=== PATIENT | female | born 1985 | race Caucasian/White ===

== ENCOUNTER 2022-05-25 12:51 | Observation (INO) ==
[2022-05-25] MEDS ORDERED: SODIUM CHLORIDE 0.9% 1000ML 1,000 ML IV ONE (13:18)
[2022-05-25] MEDS ORDERED: dexAMETHasone**PF** 10 MG/ML VIAL IV ONE (13:24)
[2022-05-25] MEDS ORDERED: ACETAMINOPHEN 1,000 MG/100 ML VIAL IV STA (13:24)
[2022-05-25] MEDS ORDERED: diphenhydrAMINE 50 MG/ML VIAL IV STA (13:24)
[2022-05-25] MEDS ORDERED: PROCHLORPERAZINE 1 ML IV ONE (13:24)
[2022-05-25 13:25] LABS: Basophils # (auto) 0.04 K/uL (0-0.2); Basophils % (auto) 0.4 %; Eosinophils # (auto) 0.09 K/uL (0-0.50); Hematocrit (blood only) 46.3 % (34.1-44.9); Hemoglobin 15.4 g/dl (12.0-16.0); Immature Granulocytes # (auto) 0.03 K/uL (0.00-0.02); Immature Granulocytes % (auto) 0.3 %; Lymphocytes # (auto) 2.15 K/uL (1.2-3.4); Lymphocytes % (auto) 24.2 %; Mean Corpuscular Hemoglobin 30.1 pg (25.0-34.0); Mean Corpuscular Hgb Conc 33.3 g/dL (32.0-36.0); Mean Corpuscular Volume 90.4 fL (80.0-100.0); Mean Platelet Volume 9.3 fL (9.4-12.3); Monocytes # (auto) 0.47 K/uL (0.24-0.82); Monocytes % (auto) 5.3 %; Neutrophils # (auto) 6.11 K/uL (1.4-6.5); Neutrophils % (auto) 68.8 %; Platelet Count 282 K/uL (130-400); RDW Coefficient of Variation 12.5 % (11.5-14.5); RDW Standard Deviation 41.6 fL (36.4-46.3); Red Blood Count 5.12 M/uL (3.93-5.22); White Blood Count 8.89 K/ul (4.8-10.8)
[2022-05-25 13:51] LABS: Albumin Globulin Ratio 1.7 (0.9-2); BUN Creatinine Ratio 17.9 (10-20); Bilirubin,Total 0.5 mg/dl (0.2-1.0); Creatinine Clr Calc Pharmacy 113.2 ml/min; Est GFR (African American) 114.2 ml/min; Est GFR (Non-African American) 98.5 ml/min; Globulin 2.9 gm/dl (2.5-4.0); Magnesium 2.1 mg/dl (1.7-2.4); Phosphorus 1.7 mg/dl (2.5-4.9); Potassium 3.5 mmol/L (3.5-5.1); Total Protein 7.9 gm/dl (6.0-8.3)
[2022-05-25 13:59] LABS: Troponin I High Sensitivity 4.1 pg/ml (0-14)
--- NOTE | 2022-05-25 14:07 | XRay Report ---
XR chest 1V portable CLINICAL HISTORY: Chest Pain TECHNIQUE: Single frontal radiograph of the chest was obtained. Comparison: Comparison is made to CT abdomen pelvis 07/10/2015 FINDINGS: No lines and tubes are seen. The cardiomediastinal silhouette is normal. The lungs are clear. No evid ence of pleural effusion or pneumothorax. IMPRESSION: No acute chest disease. ACT 112: Negative or not required by law. Electronically signed by: Boris Latham M.D. 05/25/2022 2:06 PM
[2022-05-25 14:19] LABS: Pregnancy Test, Serum Negative (Negative)
[2022-05-25] MEDS ORDERED: OPTIRAY 300 500mL IV ONE (14:19)
--- NOTE | 2022-05-25 14:32 | CT Scan Report ---
CT head/brain wo con CLINICAL HISTORY: 36 years-old Female with posterior LAIRD, dizzy, b/l face numb, left face weak. Acute headache with dizziness TECHNIQUE: Multiple axial CT images of the head were obtained without contrast. A dose lowering tech nique was utilized adhering to the principles of ALARA. CT DOSE: 1059.87 mGy.cm COMPARISON: CTA head and neck of same day. FINDINGS: No acute intracranial hemorrhage, midline shift, intracranial mass, hydrocephalus, territorial ischem ia or abnormal extra-axial collection. The calvarium is intact. The paranasal sinuses, mastoid air cells, and middle ear cavities are clear . IMPRESSION: No acute intracranial abnormality. ACT 112: Negative or not required by law. The above report was generated using voice recognition software. It may contain grammatical, syntax o r spelling errors. Electronically signed by: Niles Ayala M.D. 05/25/2022 2:30 PM
--- NOTE | 2022-05-25 14:43 | CT Scan Report ---
CT ANGIOGRAM OF THE BRAIN; CT ANGIOGRAM OF THE NECK CLINICAL HISTORY: Headache and dizziness. Facial numbness. COMPARISON STUDY: Unenhanced CT of the brain performed concurrently on 05/25/2022. TECHNIQUE: Following the IV administration of 113 of Optiray 300, CT angiogram of the head and neck w as performed from the aortic arch to the vertex. Images are reviewed in the axial, sagittal, and umesh nal planes. 3-D MIPS images are created and assessed. IV contrast was administered without complicati on. All measurements were calculated based on NASCET criteria. A dose lowering technique was utilize d adhering to the principles of ALARA. FINDINGS: Brain parenchyma: The brain parenchyma is normal in appearance. There is no evidence of hemorrhage, m ass effect, or acute territorial ischemia noting angiographic phase technique. There is no evidence o f enhancing mass lesion on the angiogram phase images. The ventricles, sulci, and cisterns are normal in configuration. Velásquez-white matter differentiation is preserved. No extra-axial fluid collection is seen. Thoracic aorta: Visualized portions of the thoracic aorta are normal in caliber. The aortic arch demo nstrates standard 3-vessel anatomy. Right carotid arterial system: The right common carotid artery is widely patent, as is the right inte rnal and external carotid arteries. Left carotid arterial system: The left common carotid artery is widely patent, as are the left internal controls manager al and external carotid arteries. Vertebral arteries: The vertebral arteries are widely patent bilaterally noting left-sided dominance. Subclavian arteries: Widely patent bilaterally. Intracranial vasculature: The internal carotid arteries are patent at the skull base, as are the ante rior and middle cerebral arteries bilaterally. The basilar artery is diminutive. There is origi n of both posterior cerebral arteries. The vertebrobasilar system and posterior cerebral arteries are widely patent. The left vertebral artery is dominant. There is no aneurysm, high-grade stenosis, or focal vessel cut off seen throughout the intracranial circulation. Jugular veins: Patent bilaterally. Dural sinuses: Patent. Lung apices: Partially visualized upper lobe lung parenchyma appears clear. Soft tissues: The visualized pharyngeal soft tissues are normal in appearance noting angiographic pha se technique. The oropharyngeal airway appears widely patent. The salivary and thyroid glands are nor mal in appearance. No cervical lymphadenopathy is seen. Skeletal structures: The calvarium appears intact. The cervical spine is within normal limits. Orbits: The bony orbits are intact. Orbital contents are normal as visualized. Sinuses and mastoids: The paranasal sinuses are clear. The mastoid air cells are well pneumatized. IMPRESSION: 1. There is no evidence of hemorrhage, mass effect, or acute territorial ischemia noting angiographic phase technique. 2. Unremarkable CT angiogram of the brain. 3. Unremarkable CT angiogram of the neck. ACT 112: Negative or not required by law. Electronically signed by: Jose Lara M.D. 05/25/2022 2:40 PM
[2022-05-25 14:52] LABS: Lyme Ab IgG w/WB Rflx Negative (Negative); Lyme Ab IgM w/WB Rflx Negative (Negative)
[2022-05-25] MEDS ORDERED: POT PHOSPHATE MONOBASIC W/ SOD TAB PO STA (14:54)
--- NOTE | 2022-05-25 15:48 | History & Physical Report ---
Date of Service May 25, 2022 Assessment & Plan (1) Neurological symptoms: (2) Dizziness: (3) Hypophosphatemia: Plan This is a 36 y old F who has a significant PMH of primary hyperparathyroidism s/p parathyroidectomy in 2020, hx of pancreatitis, hx of migraine, hx of b/l occipital neuralgia, small fiber neuropathy who presents to ED 2/2 diaphoresis and dizziness that started prior to arrival. Neurological sx Dizziness L facial numbness/tingling/periodic facial droop admit to tele consult neuro obtain MRI brain echocardiogram pt/ot/st a1c, lipid panel, bmp, cbc in a.m. sx have mostly resolved - ? tia vs complex migraine, also of concern is pt prior hx of hypercalcemia, also Ca is 10.0 today she does follow with [facility] and was dx with b/l occipital neuralgia Hypophosphatemia replace give 2 oral K phos q2h x 3 repeat phos in a.m. Reported Tachycardia pt reports sensation of tachycardia has been worked up by [facility] Had 2 op Zio monitors, all which were normal and her sx correlated with NSR she was offered metoprolol to try to aide with sx, but pt opted to not start for now Hx of migraine hx of b/l occipital neuralgia Small fiber neuropathy continue baclofen, mag DVT ppx: encourage ambulation Dispo: med tele under obs, likely d/c tomorrow FULL CODE PCP: Miguel Heard Pt was seen and examined in collaboration with Dr. Shea, please see addendum History of Present Illness Chief Complaint: diaphoresis/dizziness prior to arrival. Primary Care Provider: Naveen Heard, This is a 36 y old F who has a significant PMH of primary hyperparathyroidism s/p parathyroidectomy in 2020, hx of pancreatitis, hx of migraine, hx of b/l occipital neuralgia, small fiber neuropathy who presents to ED 2/2 diaphoresis and dizziness that started prior to arrival. A little after 11 a.m. 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 She also had L sided facial numbness/tingling/tightness, "felt slow and confused." Both of her legs felt heavy. She did not notice any sx in her b/l arms. She proceeded to sit down for about an hour. A nurse checked her vitals and bsg was all normal. She didn't feel herself. Her mother picked her up from work and stated she almost was acting as if she was drunk, but obviously has not had anything. She also states she wasn't herself and felt possibly her L side of face was drooping. She didn't notice any slurred speech but more slowed speech. She denies any recent fever, chills, sweats, sore throat, uri sx, cough, chest pain, sob, n/v/d, abd pain, change in bowel or bladder habits. She states she has hx of tachycardia episode. She has been worked up by cardiology with zio patch and everything was normal. She was prescribed metoprolol to take if she wanted to start, but never started. She has never had anything happen like this before. Mother feels like her sx have resolved in regards to the facial droop. Of significance patient recently did establish with headache specialist through telemedicine from [facility]. She does have prior diagnosis of bilateral occipital neuralgia and small fiber neuropathy. Per patient her neurologist thought maybe she was having an idiopathic csf leak and was planning on getting a test done to investigate this; however machine was broke and got cancelled. She is now scheduled for this in July. Allergies Allergy/AdvReac Type Severity Reaction Status Date / Time metoclopramide [From Reglan] AdvReac Unknown MUSCLE Verified 05/25/22 16:01 SPASMS/TWITCHES Home Medications Medication Instructions Recorded Confirmed Type fluticasone propionate 50 2 spray intranasal DAILY PRN 04/01/21 05/25/22 History mcg/actuation nasal Congestion spray,suspension (Allergy Relief (fluticasone)) baclofen 10 mg tablet 10 mg PO BID 06/28/21 05/25/22 History Lactobacillus acidophilus 1.5 mg 1.5 mg PO DAILY 05/25/22 05/25/22 History (250 million cell) capsule (Probiotic Acidophilus) magnesium oxide 400 mg PO HS 05/25/22 05/25/22 History multivitamin 1 tab PO DAILY 05/25/22 05/25/22 History Past Med/Surg History Medical History Acute pancreatitis Elevated blood pressure complicating in third trimester, antepartum (10/26/14) GERD (gastroesophageal reflux disease) History of COVID-19 DX'D 06/2020 AT [id number] FOR 1 DAY, ACHINESS, LOSS TASTE AND SMELL-RECOVERED AT HOME-ALL SYMPTOMS RESOLVED EXCEPT STILL CAN'T SMELL Hypercalcemia Hypertension affecting (10/30/14) Migraine HX Surgical History History of cholecystectomy History of esophagogastroduodenoscopy (EGD) History of parathyroidectomy History of tooth extraction WISDOM TEETH [place] teeth extracted Family History Mother Hypothyroidism Breast cancer Father Hypertension Brother Hypertension Grandmother (Maternal) Hypothyroidism Family history of diabetes mellitus Aunt Hypothyroidism Social History (Updated 05/25/22 @ 15:44 by Simran Singh PA-C) Smoking Status: Never smoker Second Hand Exposure: No; Hx Alcohol Use: Yes Alcohol type: other Alcohol Intake Frequency Comment: very rare Hx Substance Use: Yes Prescribed Medications: Marijuana Prescribed Medications Comment: medical marijuana for LAIRD Preferred Language: Romanian Communication Ability: Effective Mannequin Mold Maker Required: No Beliefs That Will Affect Care: None Current Living Situation: Spouse and Family Current Living Situation Comment: [facility] 2 KIDS current occupational status: employed 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 Feels Safe at Home: Yes Assistive Devices: Contacts and Glasses Review of Systems Review of Systems: All systems reviewed & are unremarkable except as noted in HPI & below Physical Exam Physical Exam: Please refer to Dr. Shea addendum for physical exam findings. Results & Data Results & Data ([facility]) Vital Signs (Past 12 Hours) Vital Signs Pulse Pulse Resp BP BP Pulse Ox O2 Del Method 05/25/22 15:09 85 19 133/78 96 05/25/22 13:23 99 Room Air 05/25/22 13:23 84 18 143/81 H 99 Room Air 05/25/22 13:23 Room Air 05/25/22 12:54 93 H 19 151/88 H 99 Room Air Diagnostic Findings Chest X-Ray 05/25/22 13:05 XR chest 1V portable CLINICAL HISTORY: Chest Pain TECHNIQUE: Single frontal radiograph of the chest was obtained. Comparison: Comparison is made to CT abdomen pelvis 07/10/2015 FINDINGS: No lines and tubes are seen. The cardiomediastinal silhouette is normal. The lungs are clear. No evidence of pleural effusion or pneumothorax. IMPRESSION: No acute chest disease. ACT 112: Negative or not required by law. Electronically signed by: Boris Latham M.D. 05/25/2022 2:[address] 05/25/22 13:17 CT head/brain wo con CLINICAL HISTORY: 36 years-old Female with posterior LAIRD, dizzy, b/l face numb, left face weak. Acute headache with dizziness TECHNIQUE: Multiple axial CT images of the head were obtained without contrast. A dose lowering technique was utilized adhering to the principles of ALARA. CT DOSE: 1059.87 mGy.cm COMPARISON: CTA head and neck of same day. FINDINGS: No acute intracranial hemorrhage, midline shift, intracranial mass, hydrocephalus, territorial ischemia or abnormal extra-axial collection. The calvarium is intact. The paranasal sinuses, mastoid air cells, and middle e ar cavities are clear. IMPRESSION: No acute intracranial abnormality. ACT 112: Negative or not required by law. The above report was generated using voice recognition software. It may contain grammatical, syntax or spelling errors. Electronically signed by: Niles Ayala M.D. 05/25/2022 2:30 PM Head CTA 05/25/22 13:17 CT ANGIOGRAM OF THE BRAIN; CT ANGIOGRAM OF THE NECK CLINICAL HISTORY: Headache and dizziness. Facial numbness. COMPARISON STUDY: Unenhanced CT of the brain performed concurrently on 05/25/2022. TECHNIQUE: Following the IV administration of 113 of Optiray 300, CT angiogram of the head and neck was performed from the aortic arch to the vertex. Images are reviewed in the axial, sagittal, and coronal planes. 3-D MIPS images are created and assessed. IV contrast was administered without complication. All measurements were calculated based on NASCET criteria. A dose lowering technique was utilized adhering to the principles of ALARA. FINDINGS: Brain parenchyma: The brain parenchyma is normal in appearance. There is no evidence of hemorrhage, mass effect, or acute territorial ischemia noting angiographic phase technique. There is no evidence of enhancing mass lesion on the angiogram phase images. The ventricles, sulci, and cisterns are normal in configuration. Velásquez-white matter differentiation is preserved. No extra-axial fluid collection is seen. Thoracic aorta: Visualized portions of the thoracic aorta are normal in caliber. The aortic arch demonstrates standard 3-vessel anatomy. Right carotid arterial system: The right common carotid artery is widely patent, as is the right internal and external carotid arteries. Left carotid arterial system: The left common carotid artery is widely patent, as are the left internal and external carotid arteries. Vertebral arteries: The vertebral arteries are widely patent bilaterally noting left-sided dominance. Subclavian arteries: Widely patent bilaterally. Intracranial vasculature: The internal carotid arteries are patent at the skull base, as are the anterior and middle cerebral arteries bilaterally. The basilar artery is diminutive. There is origin of both posterior cerebral arteries. The vertebrobasilar system and posterior cerebral arteries are widely patent. The left vertebral artery is dominant. There is no aneurysm, high-grade stenosis, or focal vessel cut off seen throughout the intracranial circulation. Jugular veins: Patent bilaterally. Dural sinuses: Patent. Lung apices: Partially visualized upper lobe lung parenchyma appears clear. Soft tissues: The visualized pharyngeal soft tissues are normal in appearance noting angiographic phase technique. The oropharyngeal airway appears widely patent. The salivary and thyroid glands are normal in appearance. No cervical lymphadenopathy is seen. Skeletal structures: The calvarium appears intact. The cervical spine is within normal limits. Orbits: The bony orbits are intact. Orbital contents are normal as visualized. Sinuses and mastoids: The paranasal sinuses are clear. The mastoid air cells are well pneumatized. IMPRESSION: 1. There is no evidence of hemorrhage, mass effect, or acute territorial ischemia noting angiographic phase technique. 2. Unremarkable CT angiogram of the brain. 3. Unremarkable CT angiogram of the neck. ACT 112: Negative or not required by law. Electronically signed by: oJse Lara M.D. 05/25/2022 2:40 PM Neck CTA 05/25/22 13:17 CT ANGIOGRAM OF THE BRAIN; CT ANGIOGRAM OF THE NECK CLINICAL HISTORY: Headache and dizziness. Facial numbness. COMPARISON STUDY: Unenhanced CT of the brain performed concurrently on 05/25/2022. TECHNIQUE: Following the IV administration of 113 of Optiray 300, CT angiogram of the head and neck was performed from the aortic arch to the vertex. Images are reviewed in the axial, sagittal, and coronal planes. 3-D MIPS images are created and assessed. IV contrast was administered without complication. All measurements were calculated based on NASCET criteria. A dose lowering technique was utilized adhering to the principles of ALARA. FINDINGS: Brain parenchyma: The brain parenchyma is normal in appearance. There is no evidence of hemorrhage, mass effect, or acute territorial ischemia noting angiographic phase technique. There is no evidence of enhancing mass lesion on the angiogram phase images. The ventricles, sulci, and cisterns are normal in configuration. Velásquez-white matter differentiation is preserved. No extra-axial fl uid collection is seen. Thoracic aorta: Visualized portions of the thoracic aorta are normal in caliber. The aortic arch demonstrates standard 3-vessel anatomy. Right carotid arterial system: The right common carotid artery is widely patent, as is the right internal and external carotid arteries. Left carotid arterial system: The left common carotid artery is widely patent, as are the left internal and external carotid arteries. Vertebral arteries: The vertebral arteries are widely patent bilaterally noting left-sided dominance. Subclavian arteries: Widely patent bilaterally. Intracranial vasculature: The internal carotid arteries are patent at the skull base, as are the anterior and middle cerebral arteries bilaterally. The basilar artery is diminutive. There is origin of both posterior cerebral arteries. The vertebrobasilar system and posterior cerebral arteries are widely patent. The left vertebral artery is dominant. There is no aneurysm, high-grade stenosis, or focal vessel cut off seen throughout the intracranial circulation. Jugular veins: Patent bilaterally. Dural sinuses: Patent. Lung apices: Partially visualized upper lobe lung parenchyma appears clear. Soft tissues: The visualized pharyngeal soft tissues are normal in appearance noting angiographic phase technique. The oropharyngeal airway appears widely patent. The salivary and thyroid glands are normal in appearance. No cervical lymphadenopathy is seen. Skeletal structures: The calvarium appears intact. The cervical spine is within normal limits. Orbits: The bony orbits are intact. Orbital contents are normal as visualized. Sinuses and mastoids: The paranasal sinuses are clear. The mastoid air cells are well pneumatized. IMPRESSION: 1. There is no evidence of hemorrhage, mass effect, or acute territorial ischemia noting angiographic phase technique. 2. Unremarkable CT angiogram of the brain. 3. Unremarkable CT angiogram of the neck. ACT 112: Negative or not required by law. Electronically signed by: Jose Lara M.D. 05/25/2022 2:40 PM Medications Administered Medication List Discontinued Medications Dexamethasone Sodium Phosphate (DexamethasonePf 10 Mg/Ml Vial) 10 mg IV NOW ONE Stop: 05/25/22 13:25 Last Admin: 05/25/22 13:37 Dose: 10 mg Documented By: ONEAL Diphenhydramine HCl (Diphenhydramine 50 Mg/Ml Vial) 25 mg IV NOW STA Stop: 05/25/22 13:25 Last Admin: 05/25/22 13:35 Dose: 25 mg Documented By: ONEAL Sodium Chloride (Nss 1000ml) 1,000 mls @ 999 mls/hr IV .Q1H1M ONE Stop: 05/25/22 14:18 Last Infusion: 05/25/22 14:58 Dose: 0 mls/hr Documented By: Admin: 05/25/22 13:33 Dose: 999 mls/hr Documented By: ONEAL Prochlorperazine (Compazine) 1 mls @ 1 mls/min IV ONE ONE Stop: 05/25/22 13:25 Last Admin: 05/25/22 13:41 Dose: 1 mls/min Documented By: ONEAL Acetaminophen (Ofirmev) 1,000 mg in 100 mls @ 400 mls/hr IV NOW STA Stop: 05/25/22 13:38 Last Infusion: 05/25/22 14:58 Dose: 0 mls/hr Documented By: Admin: 05/25/22 13:37 Dose: 400 mls/hr Documented By: ONEAL Ioversol (Optiray 300 500ml) 113 ml IV ONCE ONE Stop: 05/25/22 14:20 Last Admin: 05/25/22 14:19 Dose: 113 ml Documented By: CHRISTINE Potassium Phosphate (Pot Phosphate Monobasic W/ Sod Tab) 2 tab PO NOW STA Stop: 05/25/22 14:55 Last Admin: 05/25/22 15:10 Dose: 2 tab Documented By: SIMA ECG Rate (beats per minute): 84 Rhythm: normal sinus Additional Comments: t wave inversion lead III COVID-19 Results Results COVID-19 Adm Lab Results: RBC 5.12 M/uL (3.93-5.22) 05/25/22 WBC 8.89 K/ul (4.8-10.8) 05/25/22 Hgb 15.4 g/dl (12.0-16.0) 05/25/22 Hct 46.3 % (34.1-44.9) H 05/25/22 Plt Count 282 K/uL (130-400) 05/25/22 Neutrophils (%) (Auto) 68.8 % 05/25/22 Lymphocytes (%) (Auto) 24.2 % 05/25/22 Monocytes # (Auto) 0.47 K/uL (0.24-0.82) 05/25/22 Eosinophils # (Auto) 0.09 K/uL (0-0.50) 05/25/22 Immature Granulocyte % (Auto) 0.3 % 05/25/22 Neutrophils # (Auto) 6.11 K/uL (1.4-6.5) 05/25/22 Lymphocytes # (Auto) 2.15 K/uL (1.2-3.4) 05/25/22 Monocytes # (Auto) 0.47 K/uL (0.24-0.82) 05/25/22 Eosinophils # (Auto) 0.09 K/uL (0-0.50) 05/25/22 Basophils # (Auto) 0.04 K/uL (0-0.2) 05/25/22 Immature Granulocyte # (Auto) 0.03 K/uL (0.00-0.02) H 05/25 Na 137 mmol/L (136-145) 05/25/22 K 3.5 mmol/L (3.5-5.1) 05/25/22 Cl 102 mmol/L (98-107) 05/25/22 CO2 26 mmol/L (21-32) 05/25/22 Anion Gap 9 (3-11) 05/25/22 BUN 14 mg/dl (6-23) 05/25/22 Creatinine 0.78 mg/dl (0.6-1.2) 05/25/22 BUN/Creatinine Ratio 17.9 (10-20) 05/25/22 Glucose Level 129 mg/dl (70-99(Fasting)) H 05/25/22 Ca 10.0 mg/dl (8.5-10.1) 05/25/22 Phosphorus Level 1.7 mg/dl (2.5-4.9) L 05/25/22 Total Bilirubin 0.5 mg/dl (0.2-1.0) 05/25/22 AST/SGOT 12 U/L (13-39) L 05/25/22 ALT/SGPT 9 U/L (7-52) 05/25/22 Alkaline Phosphatase 38 U/L (34-104) 05/25/22 Total Protein 7.9 gm/dl (6.0-8.3) 05/25/22 Albumin 5.0 gm/dl (3.4-5.0) 05/25/22 Globulin 2.9 gm/dl (2.5-4.0) 05/25/22 Albumin/Globulin Ratio 1.7 (0.9-2) 05/25/22 COVID-19 PCR NEGATIVE (Negative) 05/25/22 Chest X-Ray 05/25/22 Code Status & VTE Plan Code Status FULL CODE VTE Prophylaxis Plan VTE Prophylaxis will be ordered: No Supervising Physician Co-Signing Physician Notes 36-year-old lady with PMH migraine without aura, bilateral occipital neuralgia, hyperparathyroidism/primary status post surgery and Cinacalcet trial, pancreatitis, acute frontal sinusitis, gallstone presented to our ED with complaint of diaphoresis and dizziness associated with Lt facial numbness/tingling. 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 Delayed thought process but no slurred speech. Patient also reported she had weakness and was ataxic while attempting to move and hence had to sit down. Patient does have a history of migraine, on and off palpitations. Patient denies any acute changes in her bowel or bladder habit. Patient denies sore throat or cough. Patient still reports of having some facial numbness at bedside exam. Admitting labs reviewed, low phosphorus level, will replete with p.o. supplement. TSH wnl. Admitting imagings reviewed, CTA head and neck and CT head with no acute findings/patatent carotids/vertebral arteries. CXR with no acute findings. Troponins and EKG WNL. Telemetry monitoring and MRI brain. Stroke protocol. Neuro consult. Lipid panel in AM. Get A1c. ECHO. Allow permissive HTN. Upon examination: GENERAL: Alert and oriented x3. NAD, on RA. HEENT: No pallor, no icterus. Pupils equal, round and reactive to light. Oral mucosa moist. NECK: No JVD, no neck masses. HEART: S1 and S2 heard. Regular rate and rhythm. No murmur, no gallop. RESPIRATORY SYSTEM: Normal AP diameter. No accessory muscle use. No wheezing, no crackles. ABDOMEN: Soft, bowel sounds present, nontender, no distention. CENTRAL NERVOUS SYSTEM: No facial droop. Speech is clear. Obeys simple commands. Moves extremities. Power nl on all extremities. EXTREMITIES: No edema, no erythema seen. I have seen and examined the patient and have discussed the case with the provider above. I agree with the assessment and plan as stated.
--- NOTE | 2022-05-25 16:48 | Electrocardiogram Report ---
Test Reason : Blood Pressure : / mmHG Vent. Rate : 084 BPM Atrial Rate : 084 BPM P-R Int : 128 ms QRS Dur : 090 ms QT Int : 350 ms P-R-T Axes : 052 065 021 degrees QTc Int : 413 ms Normal sinus rhythm Normal ECG No previous ECGs available Confirmed by Mark Anthony Parsons ([id number]) on 05/25/2022 4:47:56 PM Referred By: REFERRED SELF Confirmed By:Avinash Parsons
--- NOTE | 2022-05-25 16:56 | Emergency Department Note ---
Impression & Plan Neurological symptoms, Dizziness, Hypophosphatemia ED Provider Note NAME: MARGUERITE CABRERA AGE: 36 SEX: F ARRIVES VIA: Walk-In INFORMANT: Patient ED PROVIDER(S): Mele Patel MD CHIEF COMPLAINT: Facial numbness, weakness PLAN: Disposition: Admit MEDICAL DECISION MAKING: The patient is a pleasant 36-year-old woman with a past medical history of occipital neuralgia who presents to the emergency department via walk-in for evaluation of symptoms of posterior headache, dizziness and symptoms of facial numbness and weakness. The patient reports that last night she felt numbness and tingling of the right side of her face however this morning felt the numbness and tingling on the left side of the face and then noticed that she felt the left side of her face was weak and drooping. She also feels as though her right leg is heavy. Her symptoms occur in the setting of her report of having a year or more of symptoms of occipital neuralgia which she reports happens at least several times a week. Additionally, she reports she has had 3 months of symptoms of severe posterior headache that comes on daily and last several seconds and resolves. She correlates the symptoms to an episode 3 weeks ago when she became dizzy and vomited. She reports she had follow-up with her primary care doctor as well as neurology via telehealth and an outpatient MRI was ordered but unfortunately was canceled due to varying circumstances and is awaiting update on the rescheduled time. She denies any fevers, chills, cough, congestion, diarrhea or urinary symptoms. On arrival patient is anxious appearing but in no acute distress, afebrile, BP 150s/80s and otherwise stable vital signs. Her speech is fluent without dysarthria or aphasia. She exhibits question of mild left lower facial droop when examined directly however when distracted appears to have symmetric smile. Additionally, when asked to close her eyes the patient does so weakly bila terally saying she is trying her best to do so but that is all the strength she can gather. There is no objective weakness of bilateral upper or lower extremities. 5/5 strength and SILT x 4 extremities. Cerebellar function intact including [id number], alternating palms, [id number]. EKG without overt acute ischemia. CXR negative for acute cardiopulmonary process. WBC, Hbg and platelets within normal limits. Chemistry without metabolic acidosis. Phosphorus 1.7 with the patient provided. Electrolytes and LFTs otherwise unremarkable. High-sensitivity troponin 4.1, within normal limits. Lipase within normal limits. TSH within normal limits. hCG was negative. Lyme screen was negative. COVID-[address] of the head CT of the head and neck were performed and were negative for acute findings. Upon reevaluation the patient denied any significant change of her symptoms after treatment for migraine, still reporting numbness and tingling and sense of weakness though no objectively noted facial weakness. Given the persistence of her symptoms we did agree to proceed with admission for further evaluation including MRI. Case was discussed with Simran Ngo PAC with Dr. She[facility] hospitalist, who will evaluate the patient for admission. Triage Nursing notes reviewed and agree them. Prior medical records reviewed Differential diagnosis: Infection, dehydration, metabolic abnormality, hypo/hyperglycemia, electrolyte disturbance, anemia, hypoxia, cardiac sources, intracerebral event, toxicologic, neurologic, as well as other pathologies. ER treatment provided: See below. Diagnostics interpreted by me: ECG: Normal sinus rhythm, 84 bpm, no ectopy, no overt ST elevation or depression, QTC 413, QRS 90 Cardiac Monitoring: An order for continuous cardiac monitoring was placed and demonstrated normal sinus rhythm, 84 bpm, no ectopy Laboratory studies: See below Imaging studies: See below Consultation(s): Simran Ngo PAC with Dr. Shea [facility] Hospitalist, HPI: The patient is a pleasant 36-year-old woman with a past medical history of occipital neuralgia is emergency department via walk-in for evaluation of symptoms of posterior headache, dizziness and symptoms of facial numbness and weakness. The patient reports that last night she felt numbness and tingling of the right side of her face however this morning felt the numbness and tingling on the left side of the face and then noticed that she felt the left side of her face was weak and drooping. She also feels as though her right leg is heavy. Her symptoms occur in the setting of her report of having a year or more of symptoms of occipital neuralgia which she reports happens at least several times a week. Additionally, she reports she has had 3 months of symptoms of severe posterior headache that comes on daily and last several seconds and resolves. She correlates the symptoms to an episode 3 weeks ago when she became dizzy and vomited. She reports she had follow-up with her primary care doctor as well as neurology via telehealth and an outpatient MRI was ordered but unfortunately was canceled due to varying circumstances and is awaiting update on the rescheduled time. She denies any fevers, chills, cough, congestion, diarrhea or urinary symptoms. ROS: See above HPI for pertinent positives & negatives. A total of 10 systems reviewed and were otherwise negative. VITALS:See Below PHYSICAL EXAMINATION: GENERAL: Awake, alert, anxious-appearing, in no distress HENT: Normocephalic, atraumatic. Oropharynx with dry mucous membranes and otherwise unremarkable. EYES: Normal conjunctiva. Sclera non-icteric. EOMI. No nystamgus. PEARRL. NECK: Supple. No nuchal rigidity. FROM. No JVD. RESPIRATORY: Clear to auscultation. CARDIAC: Regular rate, normal rhythm. Extremities warm and well perfused. Pulses equal. ABDOMEN: Soft, non-distended. No tenderness to palpation. No rebound or guarding. No masses. RECTAL: Deferred. MUSCULOSKELETAL: Chest examination reveals no tenderness. The back is symmetrical on inspection without obvious abnormality. There is no CVA tenderness to palpation. No joint edema. LOWER EXTREMITIES: Calves are equal size bilaterally and non-tender. No edema. No discoloration. NEURO: Speech is fluent without dysarthria or aphasia. She exhibits question of mild left lower facial droop when examined directly however when distracted appears to have symmetric smile. Additionally, when asked to close her eyes the patient does so weakly bilaterally. No objective weakness of bilateral upper or lower extremities. 5/5 strength and SILT x 4 extremities. Cerebellar function intact including pilaje-zr-[id number], alternating palms, sokj-us-[id number]. SKIN: No rash or jaundice noted. Mele Patel MD Past Med/Surg History Medical History Acute pancreatitis Elevated blood pressure complicating in third trimester, antepartum (10/26/14) GERD (gastroesophageal reflux disease) History of COVID-19 DX'D 06/2020 AT FORMER XXNLGEAL-[id number] FOR 1 DAY, ACHINESS, LOSS TASTE AND SMELL-RECOVERED AT HOME-ALL SYMPTOMS RESOLVED EXCEPT STILL CAN'T SMELL Hypercalcemia Hypertension affecting (10/30/14) Migraine HX Surgical History History of cholecystectomy History of esophagogastroduodenoscopy (EGD) History of parathyroidectomy History of tooth extraction WISDOM TEETH Darwin teeth extracted Family History Mother Hypothyroidism Breast cancer Father Hypertension Brother Hypertension Grandmother (Maternal) Hypothyroidism Family history of diabetes mellitus Aunt Hypothyroidism Social History Smoking Status: Never smoker Second Hand Exposure: No; Hx Alcohol Use: Yes Alcohol type: other Alcohol Intake Frequency Comment: very rare Hx Substance Use: Yes Prescribed Medications: Marijuana Prescribed Medications Comment: medical marijuana for LAIRD Preferred Language: Prydeinig Communication Ability: Effective Technology Administrator Required: No Beliefs That Will Affect Care: None Current Living Situation: Spouse and Family Current Living Situation Comment: [facility] KIDS current occupational status: employed 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 Feels Safe at Home: Yes Assistive Devices: Contacts and Glasses Allergies Allergies Allergy/AdvReac Type Severity Reaction Status Date / Time metoclopramide [From Reglan] AdvReac Unknown MUSCLE Verified 05/25/22 16:01 SPASMS/TWITCHES Home Meds Home Medications Medication Instructions Recorded Confirmed fluticasone propionate 50 2 spray intranasal DAILY PRN 04/01/21 05/25/22 mcg/actuation nasal Congestion spray,suspension (Allergy Relief (fluticasone)) baclofen 10 mg tablet 10 mg PO BID 06/28/21 05/25/22 Lactobacillus acidophilus 1.5 mg 1.5 mg PO DAILY 05/25/22 05/25/22 (250 million cell) capsule (Probiotic Acidophilus) magnesium oxide 400 mg PO HS 05/25/22 05/25/22 multivitamin 1 tab PO DAILY 05/25/22 05/25/22 Results & Data (ED) Vital Signs Vital Signs - 24 hr 05/25/22 12:54 05/25/22 13:23 05/25/22 13:23 Pulse Rate 93 H Pulse Rate [Finger] 84 Respiratory Rate 19 18 Respiratory Effort / Characteristics Non-Labored Blood Pressure 151/88 H Blood Pressure [Right Arm] 143/81 H Blood Pressure Mean 109 Blood Pressure Mean [Right Arm] 101 Pulse Oximetry 99 99 Oxygen Delivery Method Room Air Room Air Room Air Sepsis Recent Fever Within 48 Hours Yes Sepsis New/Unexplained Change in Mental Status N/A Sepsis Action Taken by Nursing No Action Required 05/25/22 13:23 05/25/22 15:09 Pulse Rate Pulse Rate [Finger] 85 Respiratory Rate 19 Respiratory Effort / Characteristics Blood Pressure Blood Pressure [Right Arm] 133/78 Blood Pressure Mean Blood Pressure Mean [Right Arm] 96 Pulse Oximetry 99 96 Oxygen Delivery Method Room Air Sepsis Recent Fever Within 48 Hours Sepsis New/Unexplained Change in Mental Status Sepsis Action Taken by Nursing Laboratory Data Attestation: I reviewed the patient's lab results. Result diagrams: 05/25/22 13:08 05/25/22 13:08 Lab Results 05/25/22 05/25/22 05/25/22 Range/Units 13:08 13:08 13:08 WBC 8.89 (4.8-10.8) K/ul RBC 5.12 (3.93-5.22) M/uL Hgb 15.4 (12.0-16.0) g/dl Hct 46.3 H (34.1-44.9) % MCV 90.4 (80.0-100.0) fL MCH 30.1 (25.0-34.0) pg MCHC 33.3 (32.0-36.0) g/dL RDW Std Deviation 41.6 (36.4-46.3) fL RDW Coeff of [place] 12.5 (11.5-14.5) % Plt Count 282 (130-400) K/uL MPV 9.3 L (9.4-12.3) fL Immature Gran % (Auto) 0.3 % Neut % (Auto) 68.8 % Lymph % (Auto) 24.2 % [place] % (Auto) 5.3 % Eos % (Auto) 1.0 % Baso % (Auto) 0.4 % Neut # (Auto) 6.11 (1.4-6.5) K/uL Lymph # (Auto) 2.15 (1.2-3.4) K/uL [place] # (Auto) 0.47 (0.24-0.82) K/uL Eos # (Auto) 0.09 (0-0.50) K/uL Baso # (Auto) 0.04 (0-0.2) K/uL Immature Gran # (Auto) 0.03 H (0.00-0.02) K/uL Sodium 137 (136-145) mmol/L Potassium 3.5 (3.5-5.1) mmol/L Chloride 102 (98-107) mmol/L Carbon Dioxide 26 (21-32) mmol/L Anion Gap 9 (3-11) BUN 14 (6-23) mg/dl Creatinine 0.78 (0.6-1.2) mg/dl Est Cr Clr Drug Dosing 113.2 ml/min Est GFR ( Amer) 114.2 ml/min Est GFR (Non-Af Amer) 98.5 ml/min BUN/Creatinine Ratio 17.9 (10-20) Glucose 129 H (70-99(Fasting)) mg/dl Calcium 10.0 (8.5-10.1) mg/dl Phosphorus 1.7 L (2.5-4.9) mg/dl Magnesium 2.1 (1.7-2.4) mg/dl Total Bilirubin 0.5 (0.2-1.0) mg/dl AST 12 L (13-39) U/L ALT 9 (7-52) U/L Alkaline Phosphatase 38 (34-104) U/L Troponin I High Sens 4.1 (0-14) pg/ml Total Protein 7.9 (6.0-8.3) gm/dl Albumin 5.0 (3.4-5.0) gm/dl Globulin 2.9 (2.5-4.0) gm/dl Albumin/Globulin Ratio 1.7 (0.9-2) Lipase 24 (11-82) U/L TSH 1.017 (0.300-4.500) uIu/ml HCG, Qual (Negative) Lyme Disease IgG Ab (Negative) Lyme Disease IgM Ab (Negative) SARS-CoV-2 (PCR) (Negative) 05/25/22 05/25/22 05/25/22 Range/Units 13:08 13:08 13:51 WBC (4.8-10.8) K/ul RBC (3.93-5.22) M/uL Hgb (12.0-16.0) g/dl Hct (34.1-44.9) % MCV (80.0-100.0) fL MCH (25.0-34.0) pg MCHC (32.0-36.0) g/dL RDW Std Deviation (36.4-46.3) fL RDW Coeff of [place] (11.5-14.5) % Plt Count (130-400) K/uL MPV (9.4-12.3) fL Immature Gran % (Auto) % Neut % (Auto) % Lymph % (Auto) % [place] % (Auto) % Eos % (Auto) % Baso % (Auto) % Neut # (Auto) (1.4-6.5) K/uL Lymph # (Auto) (1.2-3.4) K/uL [place] # (Auto) (0.24-0.82) K/uL Eos # (Auto) (0-0.50) K/uL Baso # (Auto) (0-0.2) K/uL Immature Gran # (Auto) (0.00-0.02) K/uL Sodium (136-145) mmol/L Potassium (3.5-5.1) mmol/L Chloride (98-107) mmol/L Carbon Dioxide (21-32) mmol/L Anion Gap (3-11) BUN (6-23) mg/dl Creatinine (0.6-1.2) mg/dl Est Cr Clr Drug Dosing ml/min Est GFR ( Amer) ml/min Est GFR (Non-Af Amer) ml/min BUN/Creatinine Ratio (10-20) Glucose (70-99(Fasting)) mg/dl Calcium (8.5-10.1) mg/dl Phosphorus (2.5-4.9) mg/dl Magnesium (1.7-2.4) mg/dl Total Bilirubin (0.2-1.0) mg/dl AST (13-39) U/L ALT (7-52) U/L Alkaline Phosphatase (34-104) U/L Troponin I High Sens (0-14) pg/ml Total Protein (6.0-8.3) gm/dl Albumin (3.4-5.0) gm/dl Globulin (2.5-4.0) gm/dl Albumin/Globulin Ratio (0.9-2) Lipase (11-82) U/L TSH (0.300-4.500) uIu/ml HCG, Qual Negative (Negative) Lyme Disease IgG Ab Negative (Negative) Lyme Disease IgM Ab Negative (Negative) SARS-CoV-2 (PCR) NEGATIVE (Negative) Administered Medications Discontinued Medications Dexamethasone Sodium Phosphate (DexamethasonePf 10 Mg/Ml Vial) 10 mg IV NOW ONE Stop: 05/25/22 13:25 Last Admin: 05/25/22 13:37 Dose: 10 mg Documented By: ONEAL Diphenhydramine HCl (Diphenhydramine 50 Mg/Ml Vial) 25 mg IV NOW STA Stop: 05/25/22 13:25 Last Admin: 05/25/22 13:35 Dose: 25 mg Documented By: ONEAL Gadobutrol (Gadobutrol 65ml Vial) 8.5 ml IV ONCE ONE Stop: 05/25/22 18:19 Last Admin: 05/25/22 18:19 Dose: 8.5 ml Documented By: HARVEY Sodium Chloride (Nss 1000ml) 1,000 mls @ 999 mls/hr IV .Q1H1M ONE Stop: 05/25/22 14:18 Last Infusion: 05/25/22 14:58 Dose: 0 mls/hr Documented By: Admin: 05/25/22 13:33 Dose: 999 mls/hr Documented By: ONEAL Prochlorperazine (Compazine) 1 mls @ 1 mls/min IV ONE ONE Stop: 05/25/22 13:25 Last Admin: 05/25/22 13:41 Dose: 1 mls/min Documented By: ONEAL Acetaminophen (Ofirmev) 1,000 mg in 100 mls @ 400 mls/hr IV NOW STA Stop: 05/25/22 13:38 Last Infusion: 05/25/22 14:58 Dose: 0 mls/hr Documented By: Admin: 05/25/22 13:37 Dose: 400 mls/hr Documented By: ONEAL Ioversol (Optiray 300 500ml) 113 ml IV ONCE ONE Stop: 05/25/22 14:20 Last Admin: 05/25/22 14:19 Dose: 113 ml Documented By: CHRISTINE Potassium Phosphate (Pot Phosphate Monobasic W/ Sod Tab) 2 tab PO NOW STA Stop: 05/25/22 14:55 Last Admin: 05/25/22 15:10 Dose: 2 tab Documented By: ASW Imaging Data Radiologist's Impression: Chest X-Ray 05/25/22 13:05 XR chest 1V portable CLINICAL HISTORY: Chest Pain TECHNIQUE: Single frontal radiograph of the chest was obtained. Comparison: Comparison is made to CT abdomen pelvis 07/10/2015 FINDINGS: No lines and tubes are seen. The cardiomediastinal silhouette is normal. The lungs are clear. No evidence of pleural effusion or pneumothorax. IMPRESSION: No acute chest disease. ACT 112: Negative or not required by law. Electronically signed by: Boris Latham M.D. 05/25/2022 2:[address] 05/25/22 13:17 CT head/brain wo con CLINICAL HISTORY: 36 years-old Female with posterior LAIRD, dizzy, b/l face numb, left face weak. Acute headache with dizziness TECHNIQUE: Multiple axial CT images of the head were obtained without contrast. A dose lowering technique was utilized adhering to the principles of ALARA. CT DOSE: 1059.87 mGy.cm COMPARISON: CTA head and neck of same day. FINDINGS: No acute intracranial hemorrhage, midline shift, intracranial mass, hydrocephalus, territorial ischemia or abnormal extra-axial collection. The calvarium is intact. The paranasal sinuses, mastoid air cells, and middle ear cavities are clear. IMPRESSION: No acute intracranial abnormality. ACT 112: Negative or not required by law. The above report was generated using voice recognition software. It may contain grammatical, syntax or spelling errors. Electronically signed by: Niles Ayala M.D. 05/25/2022 2:30 PM Head CTA 05/25/22 13:17 CT ANGIOGRAM OF THE BRAIN; CT ANGIOGRAM OF THE NECK CLINICAL HISTORY: Headache and dizziness. Facial numbness. COMPARISON STUDY: Unenhanced CT of the brain performed concurrently on 022. TECHNIQUE: Following the IV administration of 113 of Optiray 300, CT angiogram of the head and neck was performed from the aortic arch to the vertex. Images are reviewed in the axial, sagittal, and coronal planes. 3-D MIPS images are created and assessed. IV contrast was administered without complication. All measurements were calculated based on NASCET criteria. A dose lowering technique was utilized adhering to the principles of ALARA. FINDINGS: Brain parenchyma: The brain parenchyma is normal in appearance. There is no evidence of hemorrhage, mass effect, or acute territorial ischemia noting angiographic phase technique. There is no evidence of enhancing mass lesion on the angiogram phase images. The ventricles, sulci, and cisterns are normal in configuration. Velásquez-white matter differentiation is preserved. No extra-axial fluid collection is seen. Thoracic aorta: Visualized portions of the thoracic aorta are normal in caliber. The aortic arch demonstrates standard 3-vessel anatomy. Right carotid arterial system: The right common carotid artery is widely patent, as is the right internal and external carotid arteries. Left carotid arterial system: The left common carotid artery is widely patent, as are the left internal and external carotid arteries. Vertebral arteries: The vertebral arteries are widely patent bilaterally noting left-sided dominance. Subclavian arteries: Widely patent bilaterally. Intracranial vasculature: The internal carotid arteries are patent at the skull base, as are the anterior and middle cerebral arteries bilaterally. The basilar artery is diminutive. There is origin of both posterior cerebral arteries. The vertebrobasilar system and posterior cerebral arteries are widely patent. The left vertebral artery is dominant. There is no aneurysm, high-grade stenosis, or focal vessel cut off seen throughout the intracranial circulation. Jugular veins: Patent bilaterally. Dural sinuses: Patent. Lung apices: Partially visualized upper lobe lung parenchyma appears clear. Soft tissues: The visualized pharyngeal soft tissues are normal in appearance noting angiographic phase technique. The oropharyngeal airway appears widely patent. The salivary and thyroid glands are normal in appearance. No cervical lymphadenopathy is seen. Skeletal structures: The calvarium appears intact. The cervical spine is within normal limits. Orbits: The bony orbits are intact. Orbital contents are normal as visualized. Sinuses and mastoids: The paranasal sinuses are clear. The mastoid air cells are well pneumatized. IMPRESSION: 1. There is no evidence of hemorrhage, mass effect, or acute territorial ischemia noting angiographic phase technique. 2. Unremarkable CT angiogram of the brain. 3. Unremarkable CT angiogram of the neck. ACT 112: Negative or not required by law. Electronically signed by: Jose Lara M.D. 05/25/2022 2:40 PM Neck CTA 05/25/22 13:17 CT ANGIOGRAM OF THE BRAIN; CT ANGIOGRAM OF THE NECK CLINICAL HISTORY: Headache and dizziness. Facial numbness. COMPARISON STUDY: Unenhanced CT of the brain performed concurrently on 05/25/2022. TECHNIQUE: Following the IV administration of 113 of Optiray 300, CT angiogram of the head and neck was performed from the aortic arch to the vertex. Images are reviewed in the axial, sagittal, and coronal planes. 3-D MIPS images are created and assessed. IV contrast was administered without complication. All m easurements were calculated based on NASCET criteria. A dose lowering technique was utilized adhering to the principles of ALARA. FINDINGS: Brain parenchyma: The brain parenchyma is normal in appearance. There is no evidence of hemorrhage, mass effect, or acute territorial ischemia noting angiographic phase technique. There is no evidence of enhancing mass lesion on the angiogram phase images. The ventricles, sulci, and cisterns are normal in configuration. Velásquez-white matter differentiation is preserved. No extra-axial fluid collection is seen. Thoracic aorta: Visualized portions of the thoracic aorta are normal in caliber. The aortic arch demonstrates standard 3-vessel anatomy. Right carotid arterial system: The right common carotid artery is widely patent, as is the right internal and external carotid arteries. Left carotid arterial system: The left common carotid artery is widely patent, as are the left internal and external carotid arteries. Vertebral arteries: The vertebral arteries are widely patent bilaterally noting left-sided dominance. Subclavian arteries: Widely patent bilaterally. Intracranial vasculature: The internal carotid arteries are patent at the skull base, as are the anterior and middle cerebral arteries bilaterally. The basilar artery is diminutive. There is origin of both posterior cerebral arteries. The vertebrobasilar system and posterior cerebral arteries are widely patent. The left vertebral artery is dominant. There is no aneurysm, high-grade stenosis, or focal vessel cut off seen throughout the intracranial circulation. Jugular veins: Patent bilaterally. Dural sinuses: Patent. Lung apices: Partially visualized upper lobe lung parenchyma appears clear. Soft tissues: The visualized pharyngeal soft tissues are normal in appearance noting angiographic phase technique. The oropharyngeal airway appears widely patent. The salivary and thyroid glands are normal in appearance. No cervical lymphadenopathy is seen. Skeletal structures: The calvarium appears intact. The cervical spine is within normal limits. Orbits: The bony orbits are intact. Orbital contents are normal as visualized. Sinuses and mastoids: The paranasal sinuses are clear. The mastoid air cells are well pneumatized. IMPRESSION: 1. There is no evidence of hemorrhage, mass effect, or acute territorial ischemia noting angiographic phase technique. 2. Unremarkable CT angiogram of the brain. 3. Unremarkable CT angiogram of the neck. ACT 112: Negative or not required by law. Electronically signed by: Jose Lara M.D. 05/25/2022 2:40 PM Discharge Plan Visit Data Chief Complaint: Confusion Stated Complaint: DIZZY, CONFUSION ED Provider: Mele Patel Discharge Problem: Neurological symptoms, Dizziness, Hypophosphatemia Patient Disposition: Admitted As Inpatient Discharge Instructions Interventions: ED Discharge Assessment Last Done: 05/25/22 20:31
[2022-05-25] MEDS ORDERED: GADOBUTROL 65ML VIAL IV ONE (18:18)
--- NOTE | 2022-05-25 18:40 | Magnetic Resonance Report ---
MR brain wo/w con CLINICAL HISTORY: dizziness, L facial numbness/tingling TECHNIQUE: Multiplanar and multisequence MR images of the brain were obtained prior to and following administration of gadolinium contrast. Comparison: None available at the time of this dictation. FINDINGS: No abnormal restricted diffusion is identified. The white matter is unremarkable. The ventricular sys tem is normal in appearance. No mass or abnormal enhancement is seen. There is no mass effect or midl ine shift. There is no evidence of acute intraparenchymal hemorrhage. No extra axial fluid collection s are seen. The corpus callosum, pituitary gland, and cerebellar tonsils appear grossly unremarkable. Flow voids of the major intracranial arterial vessels are identified. The imaged portions of the para nasal sinuses, mastoid air cells, and orbits are unremarkable. IMPRESSION: No acute abnormality and in particular no evidence of acute infarct. ACT 112: Negative or not required by law. Electronically signed by: Boris Latham M.D. 05/25/2022 6:39 PM
[2022-05-25] MEDS ORDERED: ALUMINUM/MAGNESIUM SUSP 30 ML UDC PO PRN (20:24)
[2022-05-25] MEDS ORDERED: ONDANSETRON INJ 2 MG/ML 2 ML VIAL IV PRN (20:24)
[2022-05-25] MEDS ORDERED: ACETAMINOPHEN 325 MG TAB PO PRN (20:24)
[2022-05-25] MEDS ORDERED: PHARMACIST DISCHARGE MED REC CONSULT PRN (20:24)
[2022-05-25] MEDS ORDERED: POLYETHYLENE (MIRALAX) 17 GM PACK PO PRN (20:24)
[2022-05-25] MEDS ORDERED: MAGNESIUM HYDROXIDE SUSP 30 ML UDC PO PRN (20:24)
[2022-05-25] MEDS ORDERED: MAGNESIUM OXIDE 400 MG TAB PO SCH (21:00)
[2022-05-25] MEDS: POT PHOSPHATE MONOBASIC W/ SOD TAB PO SCH ×2 (22:11→23:47)
[2022-05-25] MEDS: BACLOFEN 10 MG TAB PO SCH (22:12)
--- NOTE | 2022-05-26 00:29 | Communication Note ---
Date of Service: May 26, 2022 Patient complaining of worsening bilateral tingling numbness of both upper and lower extremities. Gabapentin trial for neuropathy.
[2022-05-26] MEDS ORDERED: GABAPENTIN 100 MG CAP PO SCH (00:30)
[2022-05-26] MEDS: POT PHOSPHATE MONOBASIC W/ SOD TAB PO SCH (01:00)
[2022-05-26 07:36] LABS: Basophils # (auto) 0.03 K/uL (0-0.2); Basophils % (auto) 0.2 %; Eosinophils # (auto) 0.01 K/uL (0-0.50); Eosinophils % (auto) 0.1 %; Hematocrit (blood only) 43.2 % (34.1-44.9); Hemoglobin 14.9 g/dl (12.0-16.0); Immature Granulocytes # (auto) 0.06 K/uL (0.00-0.02); Immature Granulocytes % (auto) 0.4 %; Lymphocytes # (auto) 1.62 K/uL (1.2-3.4); Lymphocytes % (auto) 9.9 %; Mean Corpuscular Hemoglobin 30.7 pg (25.0-34.0); Mean Corpuscular Hgb Conc 34.5 g/dL (32.0-36.0); Mean Corpuscular Volume 88.9 fL (80.0-100.0); Mean Platelet Volume 9.4 fL (9.4-12.3); Monocytes # (auto) 0.88 K/uL (0.24-0.82); Monocytes % (auto) 5.4 %; Neutrophils # (auto) 13.79 K/uL (1.4-6.5); Platelet Count 263 K/uL (130-400); RDW Coefficient of Variation 12.4 % (11.5-14.5); RDW Standard Deviation 40.5 fL (36.4-46.3); Red Blood Count 4.86 M/uL (3.93-5.22); White Blood Count 16.39 K/ul (4.8-10.8)
[2022-05-26 08:17] LABS: Estimated Average Glucose 108 mg/dl; Hemoglobin A1C 5.4 % (4.5-5.6)
[2022-05-26 08:26] LABS: BUN Creatinine Ratio 20.6 (10-20); Calcium 9.1 mg/dl (8.5-10.1); Chol HDL Ratio 3.8 (0-5); Creatinine Clr Calc Pharmacy 139.7 ml/min; Est GFR (African American) 134.7 ml/min; Est GFR (Non-African American) 116.2 ml/min; Magnesium 2.2 mg/dl (1.7-2.4); Phosphorus 4.6 mg/dl (2.5-4.9); Potassium 3.4 mmol/L (3.5-5.1)
[2022-05-26] MEDS: BACLOFEN 10 MG TAB PO SCH (08:26)
[2022-05-26] MEDS ORDERED: POTASSIUM CHLORIDE CRTAB 20 MEQ TABCR PO STA (08:30)
[2022-05-26] MEDS ORDERED: IBUPROFEN 600 MG TAB PO ONE (08:31)
[2022-05-26] MEDS ORDERED: MULTIVITAMIN TAB PO SCH (09:00)
[2022-05-26 09:42] LABS: Folate (Folic Acid) 17.22 ng/ml (>5.38)
--- NOTE | 2022-05-26 10:05 | Neurology Consultation ---
Date of Consultation May 26, 2022 Assessment & Plan (1) Stroke-like symptoms: (2) Complicated migraine: (3) Occipital neuralgia: (4) Cervicalgia: (5) Headache: Plan 36-year-old female with a history of occipital neuralgia following parathyroidectomy about 1 year ago, followed by intense sneezing episode occurring 3 months ago followed by aural fullness, tinnitus, intense vertigo with subsequent unremarkable ENT evaluation although pending VNG testing, now presenting with symptoms that are suggestive of complicated migraine although TIA localizing to the right cerebral hemisphere not completely excluded. An element of cervicogenic headache not excluded. Previous assessment with outside headache specialist had potentially suggested low CSF pressure headache after her intense sneezing episode 3 months ago. Patient was supposed to have spinal MRI completed although this testing has not been completed. I note that she does not have a postural type headache that would otherwise suggest a spinal headache at this time. It is very reassuring that her extensive neuroimaging evaluation has been unremarkable or completely normal including CT angiography of the head and neck, CT of the head, and gadolinium-enhanced brain MRI. Also, her neurological examination this morning is normal as well. Given the possibility of TIA in this case, would recommend obtaining a hypercoagulable panel. Would also recommend daily low-dose aspirin. However, if her hypercoagulable panel is unremarkable and if she has no further episodes over the next 3 to 6 months, could probably discontinue the daily low-dose aspirin in that context. At this point, it would not be unreasonable to proceed with the previously suggested spinal MRIs, MRI of the cervical, thoracic, and lumbar spine without gadolinium enhancement, to exclude occult CSF leak. Again, this testing was recommended by her headache specialist. In terms of treatment, I would not start daily preventive medication for complicated migraine at this point in time. Her headache and facial droop have resolved. I do not object to low-dose gabapentin at bedtime as recently ordered. She may also continue with baclofen as ordered. If patient were to experience another episode potentially consistent with complicated migraine, would consider preventive medication such as verapamil or topiramate. Further, it may be worthwhile to consider a trial of an oral CGRP shon for acute treatment such as Ubrelvy or Nurtec ODT. She has not tolerated triptans in the past. Patient may continue to follow with her usual neurologist, One is a [facility] headache specialist, the other is Dr. Tristan Davalos, local [facility] neurology. History of Present Illness Reason for Consultation: dizziness, left facial numbness/tingling Requesting Physician: Simran Singh PA-C Attending Physician: Boy Seymour MD History of Present Illness The patient is a 36-year-old female with a chief complaint of left-sided headache, left periorbital region, associated dizziness, diaphoresis, and left facial numbness and weakness. No associated hemiparesis, dysarthria, aphasia, diplopia, or vision loss. Patient does relay a remote history of migraine but indicates that these headaches were a bit different. Patient also relays a history of occipital neuralgia which was diagnosed after undergoing parathyroid surgery about 1 year ago. She continues to follow with pain management for this issue. The patient also informs me that she follows with 2 other neurologists currently, Dr. Davalos, local [facility] neurology, as well as a headache specialist affiliated with [facility] elsewhere. The patient also reports an episode of intense sneezing that occurred about 3 months ago which was followed by the feeling of aural fullness, ringing in the ears, intense vertigo. Her vertigo has resolved. She informs me that she was evaluated by an outside ENT specialist and plans to have VNG testing completed. She has not had a recurrence of vertigo. She also informs me that her headache specialist had wondered whether or not she may have a CSF leak as a result of her intense sneezing episode that may be contributing to her symptoms. She was scheduled to have spinal MRIs completed to evaluate for possible CSF leak although this testing has not been completed. She does complain of some chronic mild to moderate cervicalgia and did complain of 4 limb paresthesias overnight. In terms of her migraine history, she recalls previous trials of topiramate, amitriptyline, and sumatriptan tablets and injections. These medications were perhaps not very effective or poorly tolerated at times. In any event, her migraines considerably improved after of her children, she has 12 and 7-year-old children at home. The 12-year-old may have migraine. Upon further review, she denies a history of stroke, TIA, blood clot, thromboembolic phenomena. No history of recent infection, injury, illness or vaccination. Past medical history is notable for hyperparathyroidism as alluded to above. She has undergone extensive neuroimaging evaluation including CT of the head, CT angiography of the head and neck, and brain MRI, results are as described below. In short, however, no abnormalities identified. Allergies Allergy/AdvReac Type Severity Reaction Status Date / Time metoclopramide [From Reglan] AdvReac Unknown MUSCLE Verified 05/25/22 16:01 SPASMS/TWITCHES Home Medications Medication Instructions Recorded Confirmed Type fluticasone propionate 50 2 spray intranasal DAILY PRN 04/01/21 05/25/22 History mcg/actuation nasal Congestion spray,suspension (Allergy Relief (fluticasone)) baclofen 10 mg tablet 10 mg PO BID 06/28/21 05/25/22 History Lactobacillus acidophilus 1.5 mg 1.5 mg PO DAILY 05/25/22 05/25/22 History (250 million cell) capsule (Probiotic Acidophilus) magnesium oxide 400 mg PO HS 05/25/22 05/25/22 History multivitamin 1 tab PO DAILY 05/25/22 05/25/22 History Patient History Medical History Acute pancreatitis Elevated blood pressure complicating in third trimester, antepartum (10/26/14) GERD (gastroesophageal reflux disease) History of COVID-19 DX'D 06/2020 AT [id number] FOR 1 DAY, ACHINESS, LOSS TASTE AND SMELL-RECOVERED AT HOME-ALL SYMPTOMS RESOLVED EXCEPT STILL CAN'T SMELL Hypercalcemia Hypertension affecting (10/30/14) Migraine HX Surgical History History of cholecystectomy History of esophagogastroduodenoscopy (EGD) History of parathyroidectomy History of tooth extraction WISDOM TEETH [place] teeth extracted Family History Mother Hypothyroidism Breast cancer Father Hypertension Brother Hypertension Grandmother (Maternal) Hypothyroidism Family history of diabetes mellitus Aunt Hypothyroidism Social History Smoking Status: Never smoker Second Hand Exposure: No; Hx Alcohol Use: Yes Alcohol type: wine Alcohol Intake Frequency Comment: very rare Hx Substance Use: No Preferred Language: Romansh Communication Ability: Effective Human Resources Partner Required: No Beliefs That Will Affect Care: None Current Living Situation: Spouse and Family Current Living Situation Comment: with and children current occupational status: employed 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 Other Information That Helps Us Care for You: No Feels Safe at Home: Yes Safety Concerns: Feels Safe At This Time Assistive Devices: None Review of Systems Constitutional: no fever and no chills Eyes: no blind spots and no diplopia Ear, Nose, Mouth, Throat: as per Subjective / HPI, + ear pain, + tinnitus and + dizziness Respiratory: no cough and no dyspnea Cardiovascular: no chest pain and no palpitations Gastrointestinal: as per Subjective / HPI and + nausea; no abdominal pain Genitourinary: no dysuria and no urinary incontinence Musculoskeletal: + neck pain; no back pain and no myalgia Integumentary: no rash and no lesions Neurologic: + localized weakness, + paresthesia, + dizziness and + headache(s); no tremor(s), no seizure-like activity and no memory loss Psychiatric: no depression and no anxiety Hematologic / Lymphatic: no easy bleeding and no easy bruising Exam (Neuro) Constitutional: well developed and well nourished; no acute distress Eyes: normal visual samuels by confrontation, PERRL, normal accommodation and EOM intact bilaterally; no fundoscopic abnormality, no nystagmus and no papilledema Cardiovascular: Vessels: normal carotid upstroke; no carotid bruit Neurologic: Oriented to:: Person, Place and Time Memory: Short Term Intact and Remote Intact Attention: Span Intact and Concentration Intact Language: Naming Objects and Repeating Phrases Speech Fluency: negative Dysarthria Speech Aphasia: negative Aphasia Fund of Knowledge: Current Events, Past History and Vocabulary Cranial Nerves: Normal II (Visual samuels full to confrontation, visual acuity normal), III, IV, (Pupils equal round reactive to light and accommodation, eye movements normal), V (Facial sensation intact), VII (There is no facial droop or weakness), VIII (Hearing intact), IX, X (Palate elevates to midline), XI (Shoulder shrug intact) and XII (Tongue protrudes to midline) Motor Strength: Normal Lower Extremities and Normal Upper Extremities; negative Pronator Drift Motor Tone: Normal Lower Extremities and Normal Upper Extremities Muscle Bulk/Involuntary Movements: No Involuntary Movements; negative Muscle Atrophy Sensation: Light Touch Intact, Pain/Temperature Intact, Vibration Intact and Proprioception Intact Coordination: Normal; negative Limited Balance, Dysdiadochokinesia, Finger-Nose Abnormal or Heel-Jaime Abnormal Deep Tendon Reflexes: Rt Triceps: 2+, Lt Triceps: 2+, Rt Biceps: 2+, Lt Biceps: 2+, Rt Brachioradialis: 2+, Lt Brachioradialis: 2+, Rt Patellar: 2+, Lt Patellar: 2+, Rt Ankle: 2+ and Lt Ankle: 2+ Special Tests: negative Babinski Present Gait: Normal Station and Gait Results & Data ([facility]) Vital Signs (Past 12 Hours) Vital Signs Temp Pulse Pulse Resp BP BP Pulse Ox 05/26/22 07:57 36.7 C 73 18 110/67 96 05/26/22 07:24 95 H 05/26/22 04:06 36.8 C 65 18 99/57 L 97 05/25/22 22:30 76 O2 Del Method 05/26/22 07:57 Room Air 05/26/22 07:24 05/26/22 04:06 Room Air 05/25/22 22:30 Laboratory Results WBC 16.39, hemoglobin 14.9, hematocrit 43.2, MCV 88.9, platelet count 263, sodium 139, potassium 3.4, BUN 13, creatinine 0.63, glucose 98, hemoglobin A1c 5.4, calcium 9.1, phosphorus 4.6, magnesium 2.2, AST 12, ALT 9, triglycerides 70, cholesterol 205, LDL 137, VLDL 14, HDL 54, vitamin B12 337, folate 17.22, TSH 1.017, hCG negative, Lyme screen negative, SARS-CoV-[address] of the head including CT angiography of the head and neck unremarkable. No hemorrhage, no hydrocephalus, no acute process, no significant vascular lesion. No dissection or thrombosis, no aneurysm. Brain MRI completed as well, no restricted diffusion, no pathologic blooming artifact, no hydrocephalus, no Chiari malformation, no parenchymal signal abnormality on T2/FLAIR imaging, no abnormal postcontrast enhancement. Normal study. I independently reviewed the images pertaining to the studies with results as described above. An echocardiogram revealed normal left ventricular systolic function, EF 60 to 65%, left atrial size normal, interatrial septum intact with no ASD, no shunt with injection of contrast. An electrocardiogram revealed a normal sinus rhythm, 84 bpm. Coding Level of Care Code 76889 Initial Inpt Care Lvl 3 Diagnoses Stroke-like symptoms R29.90 Complicated migraine G43.109 Occipital neuralgia M54.81 Cervicalgia M54.2 Headache R51.9
--- NOTE | 2022-05-26 14:06 | Magnetic Resonance Report ---
MRI OF THE CERVICAL SPINE WITHOUT CONTRAST CLINICAL HISTORY: Dizziness. Numbness and tingling. check for CSF leak. COMPARISON: CTA of the neck May 25, 2022. TECHNIQUE: Utilizing a 1.5 Stephani magnet and dedicated coil, multiplanar, multiecho imaging of the ce rvical spine was performed without IV contrast. FINDINGS: Alignment of the cervical spine is anatomic. Vertebral body heights are maintained. There is no marro w edema or marrow placement. Cervical cord signal and caliber are normal. There is no intracanalicula r mass or fluid collection. Paravertebral soft tissues are unremarkable. Visualized portions of the p osterior fossa are unremarkable. MRI has decreased sensitivity for detection of CSF leak but no signi ficant abnormalities are identified. C2-C3: The central canal and neural foramen are patent C3-C4: There is slight disc bulge. The central canal and neural foramen are patent. C4-C5: There is slight disc bulge. Central canal and neural foramen are patent. C5-C6: There is slight disc bulge. Central canal and neural foramen are patent. C6-C7: Central canal and neural foramen are patent. C7-T1: Central canal and neural foramen are patent. IMPRESSION: 1. No significant abnormality within the cervical spine. 2. Normal cervical cord signal and caliber. Patent central canal and neural foramen. 3. Minimal degenerative changes within the cervical spine. ACT 112: Negative or not required by law. Electronically signed by: Ariel Macdonald M.D. 05/26/2022 2:05 PM
--- NOTE | 2022-05-26 15:07 | Magnetic Resonance Report ---
MR THORACIC SPINE WO CON HISTORY: 36 years-old Female check for CSF leak, chronic mid back pain with confusion and leg weakne ss. COMPARISON: MRI cervical spine of same day. TECHNIQUE: Multiplanar multisequence MRI of the thoracic spine was obtained without the use of IV con trast. FINDINGS: Normal signal of the thoracic spinal cord. The conus medullaris terminates at the L1-L2 level. No hig h-grade central canal or neural foraminal narrowing identified. There is no acute fracture, subluxati on, endplate erosion or destructive bone lesion. No significant marrow or soft tissue edema. There is mild multilevel intervertebral disc space narrowing with spondylitic spurring and facet arthrosis. S mall chronic appearing Schmorl's nodes at T6-T7 and T7-T8. There is a tiny posterior annular disc bul ge at T7-T8 with central disc protrusion. No significant associated central canal stenosis. 1.7 cm ve rtebral body hemangioma of the T11 vertebral body. The imaged intrathoracic structures appear unremarkable. IMPRESSION: 1. Normal signal of the thoracic spinal cord. 2. Mild degenerative changes without significant central canal or neural foraminal narrowing. ACT 112: Negative or not required by law. The above report was generated using voice recognition software. It may contain grammatical, syntax o r spelling errors. Dictated: 05/26/2022 2:49 PM Transcribed: 05/26/2022 3:03 PM Ciara [id number] [facility] Electronically signed by: Niles Ayala M.D. 05/26/2022 3:06 PM
[2022-05-26] MEDS ORDERED: ASPIRIN 81 MG ECTAB PO SCH (15:30)
--- NOTE | 2022-05-26 15:41 | Magnetic Resonance Report ---
MR LUMBAR SPINE WO CON CLINICAL HISTORY: 36 years-old Female with check for CSF leak. Acute dizziness with lower extremity weakness. COMPARISON: MRI cervical and thoracic spine studies of same day. TECHNIQUE: Multiplanar, multi sequence MRI of the lumbar spine was performed without intravenous cont rast. FINDINGS: The job spotter localizer images demonstrate no gross extraspinal abnormality. Uterus is anteflexed. Conus medullaris terminates at the L1-L2 level. Signal within the lower thoracic spinal cord and cauda equi na is within normal limits. Normal caliber of the central canal. Paraspinal tissues are within normal limits. Follicular changes of the ovaries. T11 vertebral body hemangioma. T12-L1: No central canal or neural foraminal stenosis. L1-L2: No central canal or neural foraminal stenosis. L2-L3: No central canal or neural foraminal stenosis. L3-L4: Mild intervertebral disc space narrowing with disc desiccation. Spondylitic spurring with sma ll circumferential annular disc bulge. Mild facet arthrosis. No central canal or neural foraminal chanelle nosis. L4-L5: Mild facet arthrosis with spondylitic spurring. No central canal or neural foraminal stenosis . L5-S1: Disc desiccation with mild intervertebral disc space narrowing and spondylitic spurring. Circ umferential annular disc bulge with 1.5 cm central/left paracentral disc protrusion. No definite abut ment or displacement of the L5 nerve roots. Ligamentum flavum thickening with mild facet arthrosis. N o central canal or neural foraminal stenosis. IMPRESSION: 1. Mild discogenic degeneration, most pronounced at L3-L4 and L5-S1 as above. 2. No high-grade central canal or neural foraminal stenosis. ACT 112: Negative or not required by law. The above report was generated using voice recognition software. It may contain grammatical, syntax o r spelling errors. Dictated: 05/26/2022 2:58 PM Transcribed: 05/26/2022 3:11 PM Ciara [id number] [facility] Electronically signed by: Niles Ayala M.D. 05/26/2022 3:40 PM
[2022-05-26] MEDS ORDERED: BUTALBITAL/ACETAMIN/CAFFEINE TAB PO STA (15:42)
[2022-05-26] MEDS ORDERED: STROKE PATIENT DISCHARGE STA (17:44)
--- NOTE | 2022-05-26 17:46 | Discharge Summary ---
Date of Service May 26, 2022 Admission HPI Per Admitting Provider This is a 36 y old F who has a significant PMH of primary hyperparathyroidism s/p parathyroidectomy in 2020, hx of pancreatitis, hx of migraine, hx of b/l occipital neuralgia, small fiber neuropathy who presents to ED 2/2 diaphoresis and dizziness that started prior to arrival. A little after 11 a.m. 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 She also had L sided facial numbness/tingling/tightness, "felt slow and confused." Both of her legs felt heavy. She did not notice any sx in her b/l arms. She proceeded to sit down for about an hour. A nurse checked her vitals and bsg was all normal. She didn't feel herself. Her mother picked her up from work and stated she almost was acting as if she was drunk, but obviously has not had anything. She also states she wasn't herself and felt possibly her L side of face was drooping. She didn't notice any slurred speech but more slowed speech. She denies any recent fever, chills, sweats, sore throat, uri sx, cough, chest pain, sob, n/v/d, abd pain, change in bowel or bladder habits. She states she has hx of tachycardia episode. She has been worked up by cardiology with zio patch and everything was normal. She was prescribed metoprolol to take if she wanted to start, but never started. She has never had anything happen like this before. Mother feels like her sx have resolved in regards to the facial droop. Of significance patient recently did establish with headache specialist through telemedicine from [facility]. She does have prior diagnosis of bilateral occipital neuralgia and small fiber neuropathy. Per patient her neurologist thought maybe she was having an idiopathic csf leak and was planning on getting a test done to investigate this; however machine was broke and got cancelled. She is now scheduled for this in July. Admission Exam Per Admitting Provider GENERAL: Alert and oriented x3. NAD, on RA. HEENT: No pallor, no icterus. Pupils equal, round and reactive to light. Oral mucosa moist. NECK: No JVD, no neck masses. HEART: S1 and S2 heard. Regular rate and rhythm. No murmur, no gallop. RESPIRATORY SYSTEM: Normal AP diameter. No accessory muscle use. No wheezing, no crackles. ABDOMEN: Soft, bowel sounds present, nontender, no distention. CENTRAL NERVOUS SYSTEM:No facial droop. Speech is clear. Obeys simple commands. Moves extremities. Power nl on all extremities. EXTREMITIES: No edema, no erythema seen. Principal Diagnosis (1) Stroke-like symptoms: (2) Complicated migraine: (3) Occipital neuralgia: (4) Cervicalgia: (5) Headache Discharge Exam General- No acute distress Head- atraumatic Eyes- PERRL, EOMI, ENT- oropharynx clear Neck- supple, no JVD Lungs- clear to auscultation Heart- regular rhythm; no murmur Abdomen- normal bowel sounds, soft, nontender Extremities- no calf tenderness Neuro- alert, oriented x 3; PERRL, EOMI; no facial palsy; no dysarthria Skin- warm & dry Discharge Data Allergies Allergy/AdvReac Type Severity Reaction Status Date / Time metoclopramide [From Reglan] AdvReac Unknown MUSCLE Verified 05/25/22 16:01 SPASMS/TWITCHES Consultations 05/25/22 15:37 ED Decision to Admit Stat 05/25/22 20:24 Consult Neurology Routine Ordered Studies 05/25/22 13:17 CT angio head w con Stat CT angio neck with con Stat CT head/brain wo con Stat 05/25/22 16:16 MR brain wo/w con Routine 05/26/22 11:30 MRI Cervical [MR cervical spine wo con] Routine MRI Lumbar Spine [MR lumbar spine wo con] Routine MRI Spine [MR thoracic spine wo con] Routine MR THORACIC SPINE WO CON HISTORY: 36 years-old Female check for CSF leak, chronic mid back pain with confusion and leg weakness. COMPARISON: MRI cervical spine of same day. TECHNIQUE: Multiplanar multisequence MRI of the thoracic spine was obtained without the use of IV contrast. FINDINGS: Normal signal of the thoracic spinal cord. The conus medullaris terminates at the L1-L2 level. No high-grade central canal or neural foraminal narrowing identified. There is no acute fracture, subluxation, endplate erosion or destructive bone lesion. No significant marrow or soft tissue edema. There is mild multilevel intervertebral disc space narrowing with spondylitic spurring and facet arthrosis. Small chronic appearing Schmorl's nodes at T6-T7 and T7-T8. There is a tiny posterior annular disc bulge at T7-T8 with central disc protrusion. No significant associated central canal stenosis. 1.7 cm vertebral body hemangioma of the T11 vertebral body. The imaged intrathoracic structures appear unremarkable. IMPRESSION: 1. Normal signal of the thoracic spinal cord. 2. Mild degenerative changes without significant central canal or neural foraminal narrowing. ACT 112: Negative or not required by law. The above report was generated using voice recognition software. It may contain grammatical, syntax or spelling errors. Dictated: 05/26/2022 2:49 PM Transcribed: 05/26/2022 3:03 PM Ciara [id number] [facility] Electronically signed by: Niles Ayala M.D. 05/26/2022 3:06 PM Dictated:05/26/22 1449 Transcribed: 05/26/22 1503 MR LUMBAR SPINE WO CON CLINICAL HISTORY: 36 years-old Female with check for CSF leak. Acute dizziness with lower extremity weakness. COMPARISON: MRI cervical and thoracic spine studies of same day. TECHNIQUE: Multiplanar, multi sequence MRI of the lumbar spine was performed without intravenous contrast. 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 Uterus is anteflexed. Conus medullaris terminates at the L1-L2 level. Signal within the lower thoracic spinal cord and cauda equina is within normal limits. Normal caliber of the central canal. Paraspinal tissues are within normal limits. Follicular changes of the ovaries. T11 vertebral body hemangioma. T12-L1: No central canal or neural foraminal stenosis. L1-L2: No central canal or neural foraminal stenosis. L2-L3: No central canal or neural foraminal stenosis. L3-L4: Mild intervertebral disc space narrowing with disc desiccation. Spondylitic spurring with small circumferential annular disc bulge. Mild facet arthrosis. No central canal or neural foraminal stenosis. L4-L5: Mild facet arthrosis with spondylitic spurring. No central canal or neural foraminal stenosis. L5-S1: Disc desiccation with mild intervertebral disc space narrowing and spondylitic spurring. Circumferential annular disc bulge with 1.5 cm central/left paracentral disc protrusion. No definite abutment or displacement of the L5 nerve roots. Ligamentum flavum thickening with mild facet arthrosis. No central canal or neural foraminal stenosis. IMPRESSION: 1. Mild discogenic degeneration, most pronounced at L3-L4 and L5-S1 as above. 2. No high-grade central canal or neural foraminal stenosis. ACT 112: Negative or not required by law. The above report was generated using voice recognition software. It may contain grammatical, syntax or spelling errors. Dictated: 05/26/2022 2:58 PM Transcribed: 05/26/2022 3:11 PM Ciara [id number] [facility] Electronically signed by: Niles Ayala M.D. 05/26/2022 3:40 PM Dictated:05/26/22 1458 Transcribed: 05/26/22 1511 MRI OF THE CERVICAL SPINE WITHOUT CONTRAST CLINICAL HISTORY: Dizziness. Numbness and tingling. check for CSF leak. COMPARISON: CTA of the neck May 25, 2022. TECHNIQUE: Utilizing a 1.5 Stephani magnet and dedicated coil, multiplanar, multiecho imaging of the cervical spine was performed without IV contrast. FINDINGS: Alignment of the cervical spine is anatomic. Vertebral body heights are maintained. There is no marrow edema or marrow placement. Cervical cord signal and caliber are normal. There is no intracanalicular mass or fluid collection. Paravertebral soft tissues are unremarkable. Visualized portions of the posterior fossa are unremarkable. MRI has decreased sensitivity for detection of CSF leak but no significant abnormalities are identified. C2-C3: The central canal and neural foramen are patent C3-C4: There is slight disc bulge. The central canal and neural foramen are patent. C4-C5: There is slight disc bulge. Central canal and neural foramen are patent. C5-C6: There is slight disc bulge. Central canal and neural foramen are patent. C6-C7: Central canal and neural foramen are patent. C7-T1: Central canal and neural foramen are patent. IMPRESSION: 1. No significant abnormality within the cervical spine. 2. Normal cervical cord signal and caliber. Patent central canal and neural foramen. 3. Minimal degenerative changes within the cervical spine. ACT 112: Negative or not required by law. Electronically signed by: Ariel Macdonald M.D. 05/26/2022 2:05 PM Dictated:05/26/22 1400 Transcribed: 05/26/22 1400 MR brain wo/w con CLINICAL HISTORY: dizziness, L facial numbness/tingling TECHNIQUE: Multiplanar and multisequence MR images of the brain were obtained prior to and following administration of gadolinium contrast. Comparison: None available at the time of this dictation. FINDINGS: No abnormal restricted diffusion is identified. The white matter is unremarkable. The ventricular system is normal in appearance. No mass or abnormal enhancement is seen. There is no mass effect or midline shift. There is no evidence of acute intraparenchymal hemorrhage. No extra axial fluid collections are seen. The corpus callosum, pituitary gland, and cerebellar tonsils appear grossly unremarkable. Flow voids of the major intracranial arterial vessels are identified. The imaged portions of the paranasal sinuses, mastoid air cells, and orbits are unremarkable. IMPRESSION: No acute abnormality and in particular no evidence of acute infarct. ACT 112: Negative or not required by law. Electronically signed by: Boris Latham M.D. 05/25/2022 6:39 PM Dictated:05/25/221836 Transcribed: 05/25/221836 CT ANGIOGRAM OF THE BRAIN; CT ANGIOGRAM OF THE NECK CLINICAL HISTORY: Headache and dizziness. Facial numbness. COMPARISON STUDY: Unenhanced CT of the brain performed concurrently on 05/25/2022. TECHNIQUE: Following the IV administration of 113 of Optiray 300, CT angiogram of the head and neck was performed from the aortic arch to the vertex. Images are reviewed in the axial, sagittal, and coronal planes. 3-D MIPS images are created and assessed. IV contrast was administered without complication. All m easurements were calculated based on NASCET criteria. A dose lowering technique was utilized adhering to the principles of ALARA. FINDINGS: Brain parenchyma: The brain parenchyma is normal in appearance. There is no evidence of hemorrhage, mass effect, or acute territorial ischemia noting angiographic phase technique. There is no evidence of enhancing mass lesion on the angiogram phase images. The ventricles, sulci, and cisterns are normal in configuration. Velásquez-white matter differentiation is preserved. No extra-axial fluid collection is seen. Thoracic aorta: Visualized portions of the thoracic aorta are normal in caliber. The aortic arch demonstrates standard 3-vessel anatomy. Right carotid arterial system: The right common carotid artery is widely patent, as is the right internal and external carotid arteries. Left carotid arterial system: The left common carotid artery is widely patent, as are the left internal and external carotid arteries. Vertebral arteries: The vertebral arteries are widely patent bilaterally noting left-sided dominance. Subclavian arteries: Widely patent bilaterally. Intracranial vasculature: The internal carotid arteries are patent at the skull base, as are the anterior and middle cerebral arteries bilaterally. The basilar artery is diminutive. There is origin of both posterior cerebral arteries. The vertebrobasilar system and posterior cerebral arteries are widely patent. The left vertebral artery is dominant. There is no aneurysm, high-grade stenosis, or focal vessel cut off seen throughout the intracranial circulation. Jugular veins: Patent bilaterally. Dural sinuses: Patent. Lung apices: Partially visualized upper lobe lung parenchyma appears clear. Soft tissues: The visualized pharyngeal soft tissues are normal in appearance noting angiographic phase technique. The oropharyngeal airway appears widely patent. The salivary and thyroid glands are normal in appearance. No cervical lymphadenopathy is seen. Skeletal structures: The calvarium appears intact. The cervical spine is within normal limits. Orbits: The bony orbits are intact. Orbital contents are normal as visualized. Sinuses and mastoids: The paranasal sinuses are clear. The mastoid air cells are well pneumatized. IMPRESSION: 1. There is no evidence of hemorrhage, mass effect, or acute territorial ischemia noting angiographic phase technique. 2. Unremarkable CT angiogram of the brain. 3. Unremarkable CT angiogram of the neck. ACT 112: Negative or not required by law. Electronically signed by: Jose Lara M.D. 05/25/2022 2:40 PM Dictated:05/25/22 1433 Transcribed: 05/25/[address] ANGIOGRAM OF THE BRAIN; CT ANGIOGRAM OF THE NECK CLINICAL HISTORY: Headache and dizziness. Facial numbness. COMPARISON STUDY: Unenhanced CT of the brain performed concurrently on 05/25/2022. TECHNIQUE: Following the IV administration of 113 of Optiray 300, CT angiogram of the head and neck was performed from the aortic arch to the vertex. Images are reviewed in the axial, sagittal, and coronal planes. 3-D MIPS images are created and assessed. IV contrast was administered without complication. All measurements were calculated based on NASCET criteria. A dose lowering technique was utilized adhering to the principles of ALARA. FINDINGS: Brain parenchyma: The brain parenchyma is normal in appearance. There is no evidence of hemorrhage, mass effect, or acute territorial ischemia noting angiographic phase technique. There is no evidence of enhancing mass lesion on the angiogram phase images. The ventricles, sulci, and cisterns are normal in configuration. Velásquez-white matter differentiation is preserved. No extra-axial fluid collection is seen. Thoracic aorta: Visualized portions of the thoracic aorta are normal in caliber. The aortic arch demonstrates standard 3-vessel anatomy. Right carotid arterial system: The right common carotid artery is widely patent, as is the right internal and external carotid arteries. Left carotid arterial system: The left common carotid artery is widely patent, as are the left internal and external carotid arteries. Vertebral arteries: The vertebral arteries are widely patent bilaterally noting left-sided dominance. Subclavian arteries: Widely patent bilaterally. Intracranial vasculature: The internal carotid arteries are patent at the skull base, as are the anterior and middle cerebral arteries bilaterally. The basilar artery is diminutive. There is origin of both posterior cerebral arteries. The vertebrobasilar system and posterior cerebral arteries are widely patent. The left vertebral artery is dominant. There is no aneurysm, high-grade stenosis, or focal vessel cut off seen throughout the intracranial circulation. Jugular veins: Patent bilaterally. Dural sinuses: Patent. Lung apices: Partially visualized upper lobe lung parenchyma appears clear. Soft tissues: The visualized pharyngeal soft tissues are normal in appearance noting angiographic phase technique. The oropharyngeal airway appears widely patent. The salivary and thyroid glands are normal in appearance. No cervical lymphadenopathy is seen. Skeletal structures: The calvarium appears intact. The cervical spine is within normal limits. Orbits: The bony orbits are intact. Orbital contents are normal as visualized. Sinuses and mastoids: The paranasal sinuses are clear. The mastoid air cells are well pneumatized. IMPRESSION: 1. There is no evidence of hemorrhage, mass effect, or acute territorial ischemia noting angiographic phase technique. 2. Unremarkable CT angiogram of the brain. 3. Unremarkable CT angiogram of the neck. ACT 112: Negative or not required by law. Electronically signed by: Jose Lara M.D. 05/25/2022 2:40 PM Dictated:05/25/22 1433 Transcribed: 05/25/22 1433 XR chest 1V portable CLINICAL HISTORY: Chest Pain TECHNIQUE: Single frontal radiograph of the chest was obtained. Comparison: Comparison is made to CT abdomen pelvis 07/10/2015 FINDINGS: No lines and tubes are seen. The cardiomediastinal silhouette is normal. The ji gs are clear. No evidence of pleural effusion or pneumothorax. IMPRESSION: No acute chest disease. ACT 112: Negative or not required by law. Electronically signed by: Boris Latham M.D. 05/25/2022 2:06 PM Dictated:05/25/221403 Transcribed: 05/25/221403 Hospital Course (1) Neurological symptoms: (2) Dizziness: (3) Hypophosphatemia: Plan This is a 36 y old F who has a significant PMH of primary hyperparathyroidism s/p parathyroidectomy in 2020, hx of pancreatitis, hx of migraine, hx of b/l occipital neuralgia, small fiber neuropathy who presents to ED 2/2 diaphoresis and dizziness that started prior to arrival. Neurological sx Dizziness L facial numbness/tingling/periodic facial droop Present on admission with diaphoresis, dizziness and L sided facial numbness/tingling/tightness Possible TIA, but need to r/o ACS CT head showed no acute intracranial abnormality. CTA head/neck showed no evidence of hemorrhage, mass effect, or acute territorial ischemia MRI brain showed no acute abnormality and in particular no evidence of acute infarct. MRI cervical showed no significant abnormality within the cervical spine. Normal cervical cord signal and caliber MRI Lumbar showed no high-grade central canal or neural foraminal stenosis. MRI thoracic showed mild degenerative changes without significant central canal or neural foraminal narrowing. ECHO LV systolic function is normal with EF 60-65%. No interatrial shunt noted Neuro on board recommended low dose aspirin for now. Hypercoagulable work up pending However, if her hypercoagulable panel is unremarkable and if she has no further episodes over the next 3 to 6 months, could probably discontinue the low dose aspirin Will need to arrange for outpatient Zio patch (Will defer to neuro since pt had 2 outpatient Zio monitor in the past ) Pt is very anxious to go home today- clinically stable Follow up with neurology outpatient Hypophosphatemia Phosphorus on admission 1.7 Phosphorus 4.6 today Stable Hypokalemia Potassium 3.4 K replaced Pt was advised to increase potassium intake in diet Check potassium level in 1 week Reported Tachycardia pt reports sensation of tachycardia has been worked up by [facility] Cards Had 2 op Zio monitors, all which were normal and her sx correlated with NSR she was offered metoprolol to try to aide with sx, but pt opted to not start for now Hx of migraine hx of b/l occipital neuralgia Small fiber neuropathy continue baclofen Pt does not want to do the gabapentin since it did not help in the past neuro recommended If patient were to experience another episode potentially consistent with complicated migraine, would consider preventive medication such as verapamil or topiramate DVT ppx: encourage ambulation FULL CODE Disposition Will discharge home today Total Time Total Time Spent Total Time Spent (In Minutes): 35 minutes Discharge Plan Discharge Items Patient Disposition: Home - Self-Care Reason For Visit: NEUROLOGICAL SYMPTOMS Discharge Diagnosis: (1) Stroke-like symptoms: (2) Complicated migraine: (3) Occipital neuralgia: (4) Cervicalgia: (5) Headache Activity: Resume your previous activity Non-emergency contact: Primary Care Provider and Neurologist Call non-emergency contact if: you have any medication questions Follow-up/Referrals: Naveen Heard, [Primary Care Provider] - (Date & Time 06/01/2022 11:20 AM Provider Sue Shaw MD Department [facility] ) Diet: Regular Addtl Attending Provider Instructions: Follow up with your primary care provider 06/01/2022 @ 11:20 AM [facility] Follow up with your neurology Dr. Tristan Davalos,within 2 to 4 weeks Continue aspirin 81mg for now (if hypercoagulable panel is negative and if you have no further episodes over the next 3 to 6 months, your provider could probably discontinuethe aspirin) Your provider will discuss the result for the hypercoagulable work up Increase potassium intake in your diet. Check potassium and phosphorus level in 1-2 weeks Follow a low cholesterol diet and exercise. Please check your lipid panel in 3-6 months. Seek medical attention if your symptoms reoccurs Pending Studies at Discharge: Yes Studies:: hypercoagulable panel Stand-Alone Forms: Medications to Prevent Stroke, My [employer], Smoking Cessation Medications and DC Order Prescriptions: New aspirin 81 mg Tablet,Delayed Release (Dr/Ec) 81 mg PO QAM Qty: 30 0RF Continued fluticasone propionate [Allergy Relief (fluticasone)] 50 mcg/actuation spray,suspension 2 spray intranasal DAILY PRN (Reason: Congestion) Rx Instructions: administer into each nostril multivitamin Tablet 1 tab PO DAILY Probiotic Acidophilus 1.5 mg (250 million cell) capsule 1.5 mg PO DAILY magnesium oxide 400 mg magnesium Tablet 400 mg PO HS baclofen 10 mg Tablet 10 mg PO BID Discharge Orders: Discharge Order (Routine); Ordered 05/26/22 Ordered By: Boy Seymour Admission Data Admit Date/Time: 05/25/22 15:29 Attending Provider: Boy Seymour Admit Provider: Jin Shea Primary Care Provider: Naveen Heard Other Providers: Jin Shea ; Iván Lewis Other Interventions: Discharge Summary Assessment (RN) Last Done: 05/26/22 17:24
--- NOTE | 2022-05-26 18:02 | Pharmacy Report ---
Pharmacist Stroke Counseling - Date of Service May 26, 2022 - Scope: Pharmacy has been consulted to provide medication discharge counseling for this patient admitted with possible transient ischemic attack as per the Pharmacist Discharge Counseling for Stroke Patients Protocol. - Medications on Discharge: Home Medications Medication Instructions Recorded Confirmed fluticasone propionate 50 2 spray intranasal DAILY PRN 04/01/21 05/25/22 mcg/actuation nasal Congestion spray,suspension (Allergy Relief (fluticasone)) baclofen 10 mg tablet 10 mg PO BID 06/28/21 05/25/22 Lactobacillus acidophilus 1.5 mg 1.5 mg PO DAILY 05/25/22 05/25/22 (250 million cell) capsule (Probiotic Acidophilus) magnesium oxide 400 mg PO HS 05/25/22 05/25/22 multivitamin 1 tab PO DAILY 05/25/22 05/25/22 New Rx's Medication Instructions Recorded aspirin 81 mg tablet,delayed 81 mg PO QAM #30 tabs 05/26/22 release - Action: The above medications, specifically ones for stroke treatment/prophylaxis, have been reviewed in detail with the patient and/or patient credit resolution representative(s) prior to discharge. This includes indication, common adverse reactions, drug interactions, and medication administration. Medication counseling has been employed using the teach-back method to ensure understanding. - Outcome: The patient and/or patient credit resolution representative(s) have demonstrated understanding of the medications. Thank you for allowing pharmacy to be involved in the care of this patient. Please call [phone] with any additional questions
[2022-05-30 23:52] LABS: B2 Glycoprotein IgG <2.0 U/mL (<20.0); B2 Glycoprotein IgM <2.0 U/mL (<20.0); Protein S Functional(Activity) 104 % (60-140)
[2022-06-01 08:26] LABS: Anti Cardiolipin Ab IgG <2.0 GPL-U/mL; Anti Cardiolipin Ab IgM <2.0 MPL-U/mL; Anti-Thrombin III Activity 118 % normal (80-135); PTT LA Screen 47 sec (<=40)
[2022-06-01 08:50] LABS: Lupus Hex Phase (Rflxdonotord) Negative (Negative)
[2022-06-05 15:58] LABS: Factor 5 Mutation NEGATIVE
== END 2022-05-26 18:21 | disposition home or self-care (01) ==
LOC: EDINP 12:51 → ED 12:51 → SUATTDRO 15:29 → 2W 20:21

== ENCOUNTER 2024-08-19 11:20 | Observation (INO) ==
[2024-08-19 11:28] VITALS: TEMP 98.8
[2024-08-19 12:28] LABS: Basophils # (auto) 0.03 K/uL (0.00-0.20); Basophils % (auto) 0.3 %; Eosinophils # (auto) 0.05 K/uL (0.00-0.50); Eosinophils % (auto) 0.5 %; Hematocrit (blood only) 44.3 % (37.0-47.0); Hemoglobin 14.8 g/dl (12.0-16.0); Immature Granulocytes # (auto) 0.03 K/uL (0.01-0.20); Immature Granulocytes % (auto) 0.3 %; Lymphocytes # (auto) 1.47 K/uL (1.20-3.40); Lymphocytes % (auto) 14.9 %; Mean Corpuscular Hemoglobin 29.4 pg (25.0-34.0); Mean Corpuscular Hgb Conc 33.4 g/dL (32.0-36.0); Mean Corpuscular Volume 88.1 fL (80.0-100.0); Mean Platelet Volume 9.6 fL (9.4-12.4); Monocytes # (auto) 0.44 K/uL (0.11-0.59); Monocytes % (auto) 4.4 %; Neutrophils # (auto) 7.87 K/uL (1.40-6.50); Neutrophils % (auto) 79.6 %; Platelet Count 286 K/uL (130-400); RDW Coefficient of Variation 13.1 % (11.5-14.5); RDW Standard Deviation 42.2 fL (36.4-46.3); Red Blood Count 5.03 M/uL (4.20-5.40); White Blood Count 9.89 K/ul (4.8-10.8)
[2024-08-19 12:45] LABS: Alanine Aminotransferase 14 U/L (7-52); Albumin Globulin Ratio 1.6 (0.9-2); Albumin Level 4.4 gm/dl (3.4-5.0); Alkaline Phosphatase 42 U/L (34-104); Anion Gap 8 (3-11); Aspartate Aminotransferase 15 U/L (13-39); BUN Creatinine Ratio 14.3 (10-20); Bilirubin,Total 0.5 mg/dl (0.2-1.0); Blood Urea Nitrogen 11 mg/dl (6-23); Calcium 10.2 mg/dl (8.6-10.3); Carbon Dioxide 27 mmol/L (21-32); Chloride 107 mmol/L (98-107); Creatinine Clr Calc Pharmacy 120.5 ml/min; Globulin 2.8 gm/dl (2.5-4.0); Glucose 105 mg/dl (70-99(Fasting)); Magnesium 2.1 mg/dl (1.7-2.4); Potassium 4.1 mmol/L (3.5-5.1); Sodium 142 mmol/L (136-145); Total Protein 7.2 gm/dl (6.0-8.3)
[2024-08-19 12:50] LABS: Troponin I High Sensitivity 5.5 pg/ml (0-14)
[2024-08-19 12:50] LABS: Appearance Urine Clear (Clear); Bacteria Urine Automated 1+ (None Seen); Bilirubin Urine Negative (Negative); Blood Urine Negative (Negative); Cast Urine Automated 0-2 /lpf (0-2); Color Urine Yellow; Epithelial Cell Urine Auto 0-2 /hpf (0-2); Glucose Urine UA Negative (Negative); Ketones Urine 1+ (Negative); Leukocyte Esterase Urine 2+ (Negative); Nitrite Urine Negative (Negative); Protein Urine Negative (Negative); RBC Urine Automated 0-2 /hpf (0-2); Urobilinogen Urine Negative (Negative); WBC Urine Automated 0-5 /hpf (0-5); pH Urine 7.5 (4.5-7.5)
--- NOTE | 2024-08-19 12:51 | XRay Report ---
XR chest 1V not portable HISTORY: 39 years-old Female Weakness COMPARISON: 05/25/2022 TECHNIQUE: PA view of the chest FINDINGS: Cardiomediastinal and hilar silhouettes appear normal. Lungs appear clear. No pneumothorax, pleural e ffusion or airspace consolidation. Bones appear grossly intact. IMPRESSION: No acute process. ACT 112: Negative or not required by law. The above report was generated using voice recognition software. It may contain grammatical, syntax o r spelling errors. Electronically signed by: Niles Ayala M.D. 08/19/2024 12:50 PM
[2024-08-19 12:54] LABS: Partial Thromboplastin Ratio 0.9; Partial Thromboplastin Time 24 Seconds (21-31); Prothrombin Time 10.5 Seconds (9.0-12.0)
[2024-08-19 12:59] LABS: Thyroid Stimulating Hormone 0.495 uIu/ml (0.300-4.500)
--- NOTE | 2024-08-19 14:56 | Emergency Department Note ---
Impression & Plan Weakness, Shakiness, Back pain ED Provider Note NAME: MARGUERITE CABRERA AGE: 39 SEX: F : 1985 ARRIVES VIA: Walk-In INFORMANT: Patient ED PROVIDER(S): Jerry Muñoz DO CHIEF COMPLAINT: Weakness HPI: Patient is a 39-year-old female with a past medical history of tinnitus, neuropathy, autonomic dysfunction, occipital neuralgia and follows with neurology presents ER for symptoms that started 2 weeks ago with initially fevers for the first 24 to 48 hours associate with cough congestion. She was seen by her PCP and treated with antibiotics. She had a clean chest x-ray. When this started she notes that she was complaining of pain in the legs but and no numbness in association with tremors/shaking. She called Dr. Lewis and referred her in here for possible GBS. She notes that she does have some soreness in her lower back. No fevers. No numbness in the groin. ADDITIONAL HISTORY OBTAINED: Per HPI Chronic Medical/Social Conditions Affecting Care: Per HPI PAST MEDICAL HISTORY:See Below PAST SURGICAL HISTORY:See Below FAMILY HISTORY:See Below SOCIAL HISTORY:See Below HOME MEDICATIONS:See Below ALLERGIES:See Below VITALS:See Below PHYSICAL EXAMINATION: GENERAL: Sitting up in bed, alert, well appearing, well nourished, no distress, non-toxic EYE EXAM: normal conjunctiva. PERRL and EOM's intact. OROPHARYNX: no exudate, no erythema, lips, buccal mucosa, and tongue normal and mucous membranes are moist NECK: supple, no nuchal rigidity, no adenopathy, non-tender LUNGS: Clear to auscultation. Normal chest wall mechanics HEART: no murmurs, S1 normal and S2 normal ABDOMEN: abdomen soft, non-tender, normo-active bowel sounds, no masses, no rebound or guarding. BACK: Back is symmetrical on inspection and there is no deformity, no midline tenderness, no CVA tenderness. SKIN: no rashes and no bruising UPPER EXTREMITIES: upper extremities are grossly normal. LOWER EXTREMITIES: No pitting edema. Patellar and Achilles reflexes 2 out of 4 on the right. 1 out of 4 on the left and I feel this likely secondary to getting the patient to relax. NEURO EXAM: Normal sensorium, cranial nerves II-XII intact, normal speech, no weakness of arms, no weakness of legs. No drift. Finger to nose intact. Gross sensation intact. MEDICAL DECISION MAKING: Patient is a 39-year-old female who presents ER for the below stated complaint. IV was established and blood work was obtained. Labs show no significant leukocytosis or anemia. INR unremarkable. BMP along with LFTs bilirubin and troponin was negative. TSH and hCG was negative. UA without white cells to be consistent with UTI. Patient complains of pain in the bilateral lower extremities. No numbness. Reflexes were obtainable in the right lower extremity. Difficult to obtain in the left as it was felt that the patient would not relax. Discussed with Dr. Sykes and he recommends having her follow-up in their office as an outpatient. After discussion with the patient she notes she feels uncomfortable going home. Discussed case with the hospitalist for further evaluation management and treatment. Segmentation rate was not elevated. No signs of cauda equina on exam. Consults/Care Managements Discussions: Per [facility] Triage Nursing notes reviewed. Limited review of prior medical records performed Vital Signs: reviewed and remarkable for htn Differential diagnosis: Infection, dehydration, metabolic abnormality, hypo/hyperglycemia, electrolyte disturbance, anemia, hypoxia, cardiac sources, intracerebral event, toxicologic, neurologic, as well as other pathologies. ER treatment provided: See below Diagnostics interpreted by me include EKG and cardiac monitoring as listed below: -Cardiac Monitoring: An order was placed for continuous cardiac monitoring. The monitor shows a rate of 90 with sinus rhythm. -ECG: Sinus rhythm rate 92 Normal axis No PVCs QTc 403 -Laboratory studies:Interpreted by me as stated above in MDM and shown below. 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 Migraine with aura History of parathyroidectomy Hypercalcemia Medical History Headache Cervicalgia Occipital neuralgia Stroke-like symptoms Hypophosphatemia History of COVID-19 DX'D 06/2020 AT [id number] FOR 1 DAY, ACHINESS, LOSS TASTE AND SMELL-RECOVERED AT HOME-ALL SYMPTOMS RESOLVED EXCEPT STILL CAN'T SMELL GERD (gastroesophageal reflux disease) Migraine HX Hypertension affecting (10/30/14) Acute pancreatitis Elevated blood pressure complicating in third trimester, antepartum (10/26/14) Surgical History History of tooth extraction WISDOM TEETH History of esophagogastroduodenoscopy (EGD) History of cholecystectomy [place] teeth extracted Family History Mother Hypothyroidism Breast cancer Father Hypertension Brother Hypertension Grandmother (Maternal) Hypothyroidism Family history of diabetes mellitus Aunt Hypothyroidism Social History Smoking Status: Never smoker Second Hand Exposure: No; Do You Dip or Chew Tobacco: No; Hx Alcohol Use: Yes Alcohol type: wine Alcohol Intake Frequency Comment: very rare Hx Substance Use: Yes Prescribed Medications: Marijuana Last Used Substance: Unknown Substance Use Type Other:: medical marijuana card Preferred Language: Thai Communication Ability: Effective 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 Feels Safe at Home: Yes Assistive Devices: None Allergies Allergies Allergy/AdvReac Type Severity Reaction Status Date / Time gadobutrol [From Gadavist] AdvReac Intermediate Confusion Unverified 08/19/24 16:12 metoclopramide [From Reglan] AdvReac Intermediate MUSCLE Verified 08/19/24 16:12 SPASMS/TWITCHES Home Meds Home Medications Medication Instructions Recorded Confirmed fluticasone propionate 50 2 spray intranasal DAILY PRN 04/01/21 08/19/24 mcg/actuation nasal Congestion spray,suspension (Allergy Relief (fluticasone)) Lactobacillus acidophilus 250 1.5 mg PO DAILY 05/25/22 08/19/24 million cell capsule (Probiotic Acidophilus) magnesium oxide 400 mg PO HS 05/25/22 08/19/24 metoprolol succinate 25 mg 12.5 mg PO DAILY 11/06/22 08/19/24 tablet,extended release 24 hr albuterol sulfate 90 mcg/actuation 2 puff inhalation TID 08/19/24 08/19/24 aerosol inhaler baclofen 20 mg tablet 20 mg PO TID 08/19/24 08/19/24 cyanocobalamin (vitamin B-12) 1,000 mcg IM UD 08/19/24 08/19/24 1,000 mcg/mL injection solution omeprazole 40 mg capsule,delayed 40 mg PO QAM 08/19/24 08/19/24 release ondansetron 4 mg disintegrating 4 mg PO Q8H PRN Nausea And Vomiting 08/19/24 08/19/24 tablet sucralfate 1 gram tablet 1 g PO ACHS 08/19/24 08/19/24 Previous Rx's Medication Instructions Recorded aspirin 81 mg tablet,delayed 81 mg PO QAM #30 tabs 05/26/22 release syringe with needle 3 mL 23 x 1" #50 ea 12/25/23 (BD SafetyGlide Syringe) Results & Data (ED) Vital Signs Vital Signs - 24 hr 08/19/24 11:26 08/19/24 14:27 08/19/24 15:40 Temperature 37.1 C Temperature Source Oral Pulse Rate 104 H Pulse Rate [Right Finger] 93 H 84 Pulse Rhythm [Right Finger] Regular Pulse Strength [Right Finger] Normal Respiratory Rate 18 20 18 Respiratory Effort / Characteristics Non-Labored Spontaneous Non-Labored Spontaneous Non-Labored Spontaneous Respiratory Depth Normal Normal Normal Respiratory Pattern Regular Regular Regular Blood Pressure 158/87 H Blood Pressure [Right Arm] 144/86 H 140/84 Blood Pressure Mean 110 Blood Pressure Mean [Right Arm] 105 102 Blood Pressure Position Sitting Pulse Oximetry 98 96 98 Oxygen Delivery Method Room Air Room Air Room Air Sepsis Recent Fever Within 48 Hours No Sepsis New/Unexplained Change in Mental Status No Sepsis Action Taken by Nursing No Action Required 08/19/24 16:54 Temperature Temperature Source Pulse Rate Pulse Rate [Right Finger] 82 Pulse Rhythm [Right Finger] Pulse Strength [Right Finger] Respiratory Rate 20 Respiratory Effort / Characteristics Non-Labored Spontaneous Respiratory Depth Normal Respiratory Pattern Regular Blood Pressure Blood Pressure [Right Arm] 129/89 Blood Pressure Mean Blood Pressure Mean [Right Arm] 102 Blood Pressure Position Pulse Oximetry 96 Oxygen Delivery Method Room Air Sepsis Recent Fever Within 48 Hours Sepsis New/Unexplained Change in Mental Status Sepsis Action Taken by Nursing Laboratory Data 08/19/24 12:15 08/19/24 12:15 Lab Results 08/19/24 08/19/24 Range/Units 12:15 12:30 WBC 9.89 (4.8-10.8) K/ul RBC 5.03 (4.20-5.40) M/uL Hgb 14.8 (12.0-16.0) g/dl Hct 44.3 (37.0-47.0) % MCV 88.1 (80.0-100.0) fL MCH 29.4 (25.0-34.0) pg MCHC 33.4 (32.0-36.0) g/dL RDW Std Deviation 42.2 (36.4-46.3) fL RDW Coeff of [place] 13.1 (11.5-14.5) % Plt Count 286 (130-400) K/uL MPV 9.6 (9.4-12.4) fL Immature Gran % (Auto) 0.3 % Neut % (Auto) 79.6 % Lymph % (Auto) 14.9 % [place] % (Auto) 4.4 % Eos % (Auto) 0.5 % Baso % (Auto) 0.3 % Neut # (Auto) 7.87 H (1.40-6.50) K/uL Lymph # (Auto) 1.47 (1.20-3.40) K/uL [place] # (Auto) 0.44 (0.11-0.59) K/uL Eos # (Auto) 0.05 (0.00-0.50) K/uL Baso # (Auto) 0.03 (0.00-0.20) K/uL Immature Gran # (Auto) 0.03 (0.01-0.20) K/uL ESR 19 (0-20) mm/hr PT 10.5 (9.0-12.0) Seconds INR 1.0 (0.9-1.1) APTT 24 (21-31) Seconds PTT Ratio 0.9 Sodium 142 (136-145) mmol/L Potassium 4.1 (3.5-5.1) mmol/L Chloride 107 (98-107) mmol/L Carbon Dioxide 27 (21-32) mmol/L Anion Gap 8 (3-11) BUN 11 (6-23) mg/dl Creatinine 0.77 (0.6-1.2) mg/dl Est Cr Clr Drug Dosing 120.5 ml/min eGFR 101.20 BUN/Creatinine Ratio 14.3 (10-20) Glucose 105 H (70-99(Fasting)) mg/dl Calcium 10.2 (8.6-10.3) mg/dl Magnesium 2.1 (1.7-2.4) mg/dl Total Bilirubin 0.5 (0.2-1.0) mg/dl AST 15 (13-39) U/L ALT 14 (7-52) U/L Alkaline Phosphatase 42 (34-104) U/L Troponin I High Sens 5.5 (0-14) pg/ml C-Reactive Protein < 0.50 (0-0.5) mg/dl Total Protein 7.2 (6.0-8.3) gm/dl Albumin 4.4 (3.4-5.0) gm/dl Globulin 2.8 (2.5-4.0) gm/dl Albumin/Globulin Ratio 1.6 (0.9-2) TSH 0.495 (0.300-4.500) uIu/ml HCG, Quant < 1 mIU/ml Urine Color Yellow Urine Appearance Clear (Clear) Urine pH 7.5 (4.5-7.5) Ur Specific [place] 1.010 (1.000-1.030) Urine Protein Negative (Negative) Urine Glucose (UA) Negative (Negative) Urine Ketones 1+ H (Negative) Urine Blood Negative (Negative) Urine Nitrite Negative (Negative) Urine Bilirubin Negative (Negative) Urine Urobilinogen Negative (Negative) Ur Leukocyte Esterase 2+ H (Negative) Urine WBC (Auto) 0-5 (0-5) /hpf Urine RBC (Auto) 0-2 (0-2) /hpf U Hyaline Cast (Auto) 0-2 (0-2) /lpf U Epithel Cells (Auto) 0-2 (0-2) /hpf Urine Bacteria (Auto) 1+ H (None Seen) Administered Medications Discontinued Medications Ketorolac Tromethamine (Ketorolac Tromethamine 15 Mg/Ml Vial) 10 mg IV NOW ONE Stop: 08/19/24 15:39 Last Admin: 08/19/24 15:58 Dose: 10 mg Documented By: NA Ketorolac Tromethamine (Ketorolac Tromethamine 15 Mg/Ml Vial) 15 mg IV NOW ONE Stop: 08/19/24 18:13 Last Admin: 08/19/24 18:36 Dose: Not Given Documented By: LEONA Ketorolac Tromethamine (Ketorolac Tromethamine 15 Mg/Ml Vial) Confirm Administered Dose 15 mg .ROUTE .STK-MED ONE Stop: 08/19/24 18:31 Last Admin: 08/19/24 18:33 Dose: 15 mg Documented By: LEONA Imaging Data Radiologist's Impression: Chest X-Ray 08/19/24 11:28 XR chest 1V not portable HISTORY: 39 years-old Female Weakness COMPARISON: 05/25/2022 TECHNIQUE: PA view of the chest FINDINGS: Cardiomediastinal and hilar silhouettes appear normal. Lungs appear clear. No pneumothorax, pleural effusion or airspace consolidation. Bones appear grossly intact. IMPRESSION: No acute process. ACT 112: Negative or not required by law. The above report was generated using voice recognition software. It may contain grammatical, syntax or spelling errors. Electronically signed by: Niles Ayala M.D. 08/19/2024 12:50 PM Discharge Plan Visit Data Chief Complaint: Leg Weakness, Bilateral Stated Complaint: RECENT PNEUMONIA, WEAKNESS/PAIN IN LEGS ED Provider: Jerry Muñoz Discharge Problem: Weakness, Shakiness, Back pain Patient Disposition: Admitted As Inpatient Discharge Instructions Interventions: ED Discharge Assessment Last Done: 08/19/24 19:12 Discharge Problem: Back pain Qualifiers: Back pain location: low back pain Chronicity: acute Back pain laterality: u nspecified
[2024-08-19] MEDS: KETOROLAC TROMETHAMINE 15 MG/ML VIAL IV ONE ×2 (15:58→18:36)
[2024-08-19 16:44] LABS: C Reactive Protein < 0.50 mg/dl (0-0.5)
--- NOTE | 2024-08-19 17:06 | History & Physical Report ---
<Statement entered by Louie Gill, DO - 08/19/24 19:40> I have seen and examined the patient and have discussed the case with the provider above. I have reviewed the advanced practitioner's documentation, and I agree with, and take responsibility for that plan of care. Patient seen evaluated while still in the ED. She reports progressive symptoms over the past few weeks. Describes pain in the lower extremities, also describes muscle tenderness in her thighs and buttocks. Also describes weakness. Physical exam: Decreased patellar reflex bilaterally Able to move all 4 extremities, able to lift lower extremities against gravity Patient with reported weakness, pain and paresthesias of bilateral lower extremities. Discussed with patient and mother at bedside that we are still in the investigative stage reviewed with plans for further testing and neurology consultation. Discussed plan of care as outlined below with [facility]STON. Date of Service August 19, 2024 Assessment & Plan (1) Weakness: (2) Shakiness: (3) Abnormal urinalysis: Plan This is a 39-year-old female who has a significant past medical history of primary hyperparathyroidism, migraine, history of bilateral occipital neuralgia, small fiber neuropathy and balance problems who presents to ED secondary to bilateral weakness. Pt with recent respiratory URI tx with course of azithromycin and prednisone. Sx started prior to this. URI sx have resolved. Also dealing with difficulty tolerating oral intake, occassional N/V. Follows GI. started on PPI, carafate (didn't start.) Scheduled for endoscopy tomorrow and hx of hiatal hernia. Presents with subjective progressive lower ext weakness R > L, especially quadriceps, shakiness, gluteal pain,and posterior pins/needs extending to calf. No rock injury. Never experience before. Bilateral lower extremity weakness Shakiness DTR on L Admit to medical obtain thoracic/lumbar spine MRI due to decrease LLE reflex Consult neurology to eval for neuritis vs GBS per pts neurologist Dr. Lewis obtain tick born panel, lyme, ehrlichia, alpha gal, Babesia obtain ROWENA ESR/CRP negative IVF x 1 L hx of small fiber neuropathy and pt states sx feels different consult PT check vit B levels in a.m. Abnormal UA pt asymptomatic, await urine culture will hold off on antibiotics at this time b: scds, none until seen by neuro FULL CODE PCP: Naveen Heard Dispo: admit to med/surg Pt was seen and examined in collaboration with Dr. Gill, please see addendum I spent a total of 60 minutes reviewing notes, outpatient records, labs, medication, coordinating, documenting and providing care for this patient excluding time spent in the performance of separately billed services. History of Present Illness Chief Complaint: Progressing lower extremity weakness and pain to lower extremites. Primary Care Provider: Naveen Heard DO This is a 39-year-old female who has a significant past medical history of primary hyperparathyroidism, migraine, history of bilateral occipital neuralgia, small fiber neuropathy and balance problems who presents to ED secondary to bilateral weakness. She follows with [facility] neurology secondary to biopsy confirmed small fiber neuropathy. She was last seen in June 2023. She also follows with pain management in [place] for refractory cervicogenic headache. She states majority of her symptoms started 3 years ago after having her parathyroid removed. After chart review it also does appear that she is following with the [facility] at [place]. She had recent thyroid testing done on August 04/2024 with a TSH of 0.59, free T4 of 1.2, PTH of 55 and 25-hydroxy vitamin D of 31. She did recently complete a course of azithromycin and prednisone due to concern for pneumonia. Outpt CXR was negative for PNA. Patient reports over the last 2 to 3 weeks having increasing lower extremity weakness right greater than left, pain and shakiness to her lower extremities. She denies any numbness to her lower extremities. She reports tingling and a [id number] sensation in the posterior aspect of her lower extremities extending to her calfs. She feels extreme weakness in her quads. She is also having bilateral gluteal pain and lower back pain. She feels as if she is almost ataxic at times. She denies any falls. She feels very unsteady when she walks. Other than her recent upper respiratory illness she denies any recent illness or sick contacts. She also reports nausea and occasional vomiting with oral intake. She has been following GI for this and was recently prescribed omeprazole and Carafate. She did not yet start the Carafate. She does have history of hiatal hernia and was scheduled for upper endoscopy tomorrow. She occasionally feels like food is getting stuck. In particular she is having more difficulty eating meats. She denies any fever, chills, sweats, lightheadedness, dizziness, chest pain, shortness of breath, cough, dysuria, increased urgency or frequency with urination or change in her bowel habits. Due to her progressing symptoms she spoke with her neurologist who recommended she come to ED for further evaluation to rule out possible neuritis or GBS. She denies any upper extremity or truncal sx. She denies any recent tick or insect bite. + FH for lupus. No recent immunizations. Initially ED contacted neurology who Recommended outpatient workup. Mother is at bedside who also helps elicit history and states that, "there is something wrong with her daughter as this is not like her." Patient is very active. She has 2 children at home, sons 9 and 14. She denies any increased stress at home. She denies any tobacco use. She occasionally/rarely uses alcohol. She does have her medical marijuana card for which she uses tinctures for her chronic head pain. Allergies Allergy/AdvReac Type Severity Reaction Status Date / Time gadobutrol [From Gadavist] AdvReac Intermediate Confusion Unverified 08/19/24 16:12 metoclopramide [From Reglan] AdvReac Intermediate MUSCLE Verified 08/19/24 16:12 SPASMS/TWITCHES Home Medications Medication Instructions Recorded Confirmed Type fluticasone propionate 50 2 spray intranasal DAILY PRN 04/01/21 08/19/24 History mcg/actuation nasal Congestion spray,suspension (Allergy Relief (fluticasone)) Lactobacillus acidophilus 250 1.5 mg PO DAILY 05/25/22 08/19/24 History million cell capsule (Probiotic Acidophilus) magnesium oxide 400 mg PO HS 05/25/22 08/19/24 History aspirin 81 mg tablet,delayed 81 mg PO QAM #30 tabs 05/26/22 08/19/24 Rx release metoprolol succinate 25 mg 12.5 mg PO DAILY 11/06/22 08/19/24 History tablet,extended release 24 hr syringe with needle 3 mL 23 x 1" #50 ea 12/25/23 Rx (BD SafetyGlide Syringe) albuterol sulfate 90 mcg/actuation 2 puff inhalation TID 08/19/24 08/19/24 History aerosol inhaler baclofen 20 mg tablet 20 mg PO TID 08/19/24 08/19/24 History cyanocobalamin (vitamin B-12) 1,000 mcg IM UD 08/19/24 08/19/24 History 1,000 mcg/mL injection solution omeprazole 40 mg capsule,delayed 40 mg PO QAM 08/19/24 08/19/24 History release ondansetron 4 mg disintegrating 4 mg PO Q8H PRN Nausea And Vomiting 08/19/24 08/19/24 History tablet sucralfate 1 gram tablet 1 g PO ACHS 08/19/24 08/19/24 History Past Med/Surg History Problem List (Updated 08/19/24 @ 17:48 by Simran Singh PA-C) Abnormal urinalysis Shakiness (Acute) Weakness (Acute) Complicated migraine B12 deficiency Tinnitus Facial pain syndrome Dysequilibrium Anemia Dizziness Autonomic dysfunction Small fiber neuropathy Spinal headache Headache around the eyes Occipital neuralgia Papilledema Lupus anticoagulant positive 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 Migraine with aura History of parathyroidectomy Hypercalcemia Medical History Headache Cervicalgia Occipital neuralgia Stroke-like symptoms Hypophosphatemia History of COVID-19 DX'D 06/2020 AT FORMER [id number] FOR 1 DAY, ACHINESS, LOSS TASTE AND SMELL-RECOVERED AT HOME-ALL SYMPTOMS RESOLVED EXCEPT STILL CAN'T SMELL GERD (gastroesophageal reflux disease) Migraine HX Hypertension affecting (10/30/14) Acute pancreatitis Elevated blood pressure complicating in third trimester, antepartum (10/26/14) Surgical History History of tooth extraction WISDOM TEETH History of esophagogastroduodenoscopy (EGD) History of cholecystectomy [place] teeth extracted Family History Mother Hypothyroidism Breast cancer Father Hypertension Brother Hypertension Grandmother (Maternal) Hypothyroidism Family history of diabetes mellitus Aunt Hypothyroidism Social History Smoking Status: Never smoker Second Hand Exposure: No; Do You Dip or Chew Tobacco: No; Hx Alcohol Use: Yes Alcohol type: wine Alcohol Intake Frequency Comment: very rare Hx Substance Use: Yes Prescribed Medications: Marijuana Last Used Substance: Unknown Substance Use Type Other:: medical marijuana card Preferred Language: Belarusian Communication Ability: Effective Front Office Representative Required: No Beliefs That Will Affect Care: None Current Living Situation: Spouse Current Living Situation Comment: with and children current occupational status: employed 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 Feels Safe at Home: Yes Assistive Devices: None Review of Systems Review of Systems: All systems reviewed & are unremarkable except as noted in HPI & below Physical Exam Physical Exam: Constitutional: WD/WN, vitals as above, NAD, sitting up in bed, pleasant, conversing easily Head: Normocephalic, Atraumatic Eyes: PERRL, conjunctivae normal, anicteric sclerae ENMT: external ear and nose normal, oropharynx normal Neck: trachea midline, no thyromegaly normal visual inspection Respiratory: normal respiratory effort, lungs clear to auscultation, no wheeze, rales, rhonchi. Normal insp/exp effort, no accessory muscle use Cardiovascular: RRR, no murmur, no edema Vessels: no JVD or carotid bruit Chest: normal inspection of chest Abdomen: normal bowel sounds, soft, nontender, no hepatosplenomegaly Musculoskeletal: no cyanosis or clubbing, upper extremities motor strength 5/5 , lower ext 4/5 +2 R patellar reflex, unable to elicit LLE patellar reflex, negative clonus Skin: no rashes, warm and dry normal turgor Neurologic: PERRL, EOMI, accommodation nl, no face palsy, no dysarthria CN's II-XI intact bilaterally and moves all extremities Psychiatric: A+Ox3, euthymic affect Lymphatic: no cervical or axillary lymphadenopathy : deferred Results & Data Results & Data Vital Signs (Past 12 Hours) Vital Signs Temp Pulse Pulse Resp BP BP Pulse Ox 08/19/24 16:54 82 20 129/89 96 08/19/24 15:40 84 18 140/84 98 08/19/24 14:27 93 H 20 144/86 H 96 08/19/24 11:26 37.1 C 104 H 18 158/87 H 98 O2 Del Method 08/19/24 16:54 Room Air 08/19/24 15:40 Room Air 08/19/24 14:27 Room Air 08/19/24 11:26 Room Air Laboratory Results I have independently reviewed and interpreted patient's admitting labs including CBC, CMP, PTT, PT/INR, mag and troponin. Diagnostic Findings Chest X-Ray 08/19/24 11:28 XR chest 1V not portable HISTORY: 39 years-old Female Weakness COMPARISON: 05/25/2022 TECHNIQUE: PA view of the chest FINDINGS: Cardiomediastinal and hilar silhouettes appear normal. Lungs appear clear. No pneumothorax, pleural effusion or airspace consolidation. Bones appear grossly intact. IMPRESSION: No acute process. ACT 112: Negative or not required by law. The above report was generated using voice recognition software. It may contain grammatical, syntax or spelling errors. Electronically signed by: Niles Ayala M.D. 08/19/2024 12:50 PM Medications Administered Medication List Discontinued Medications Ketorolac Tromethamine (Ketorolac Tromethamine 15 Mg/Ml Vial) 10 mg IV NOW ONE Stop: 08/19/24 15:39 Last Admin: 08/19/24 15:58 Dose: 10 mg Documented By: NA ECG Additional Comments: I have independently reviewed and interpreted patient's admitting EKG which revealed: NSR 92bpm, qtc 403ms COVID-19 Results Results COVID-19 Adm Lab Results: RBC 5.03 M/uL (4.20-5.40) 08/19/24 WBC 9.89 K/ul (4.8-10.8) 08/19/24 Hgb 14.8 g/dl (12.0-16.0) 08/19/24 Hct 44.3 % (37.0-47.0) 08/19/24 Plt Count 286 K/uL (130-400) 08/19/24 Neutrophils (%) (Auto) 79.6 % 08/19/24 Lymphocytes (%) (Auto) 14.9 % 08/19/24 Monocytes # (Auto) 0.44 K/uL (0.11-0.59) 08/19/24 Eosinophils # (Auto) 0.05 K/uL (0.00-0.50) 08/19/24 Immature Granulocyte % (Auto) 0.3 % 08/19/24 Neutrophils # (Auto) 7.87 K/uL (1.40-6.50) H 08/19/24 Lymphocytes # (Auto) 1.47 K/uL (1.20-3.40) 08/19/24 Monocytes # (Auto) 0.44 K/uL (0.11-0.59) 08/19/24 Eosinophils # (Auto) 0.05 K/uL (0.00-0.50) 08/19/24 Basophils # (Auto) 0.03 K/uL (0.00-0.20) 08/19/24 Immature Granulocyte # (Auto) 0.03 K/uL (0.01-0.20) 4 Na 142 mmol/L (136-145) 08/19/24 K 4.1 mmol/L (3.5-5.1) 08/19/24 Cl 107 mmol/L (98-107) 08/19/24 CO2 27 mmol/L (21-32) 08/19/24 Anion Gap 8 (3-11) 08/19/24 BUN 11 mg/dl (6-23) 08/19/24 Creatinine 0.77 mg/dl (0.6-1.2) 08/19/24 BUN/Creatinine Ratio 14.3 (10-20) 08/19/24 Glucose Level 105 mg/dl (70-99(Fasting)) H 08/19/24 Ca 10.2 mg/dl (8.6-10.3) 08/19/24 Total Bilirubin 0.5 mg/dl (0.2-1.0) 08/19/24 AST/SGOT 15 U/L (13-39) 08/19/24 ALT/SGPT 14 U/L (7-52) 08/19/24 Alkaline Phosphatase 42 U/L (34-104) 08/19/24 Total Protein 7.2 gm/dl (6.0-8.3) 08/19/24 Albumin 4.4 gm/dl (3.4-5.0) 08/19/24 Globulin 2.8 gm/dl (2.5-4.0) 08/19/24 Albumin/Globulin Ratio 1.6 (0.9-2) 08/19/24 CRP < 0.50 mg/dl (0-0.5) 08/19/24 PTT 24 Seconds (21-31) 08/19/24 INR 1.0 (0.9-1.1) 08/19/24 Chest X-Ray 08/19/24 Code Status & VTE Plan Code Status FULL CODE VTE Prophylaxis Plan VTE Prophylaxis will be ordered: No Reason for no VTE drug order: Treatment not indicated
[2024-08-19] MEDS: KETOROLAC TROMETHAMINE 15 MG/ML VIAL ONE (18:33)
[2024-08-19] MEDS ORDERED: ONDANSETRON INJ 2 MG/ML 2 ML VIAL IV PRN (19:11)
[2024-08-19] MEDS ORDERED: ACETAMINOPHEN 325 MG TAB PO PRN (19:11)
[2024-08-19] MEDS: MAGNESIUM OXIDE 400 MG TAB PO SCH (20:13)
[2024-08-19] MEDS: SODIUM CHLORIDE 0.9% 1,000 ML IV SCH (20:20)
[2024-08-19] MEDS ORDERED: MELATONIN 3 MG TAB PO PRN (20:29)
[2024-08-19 20:49] LABS: Creatine Kinase 105 U/L (26-192)
[2024-08-19] MEDS: BACLOFEN 20 MG TAB PO SCH (21:22)
--- NOTE | 2024-08-19 22:21 | Magnetic Resonance Report ---
Exam(s): MRI T SPINE Without Contrast EXAM: MR Thoracic Spine Without Intravenous Contrast CLINICAL HISTORY: weakness, decreased L reflex. TECHNIQUE: Magnetic resonance images of the thoracic spine without intravenous contrast in multiple planes. COMPARISON: 05/26/2022. FINDINGS: Vertebrae: Maintenance of height of the vertebral bodies. No subluxation. Marrow signal intensity within normal limits. A few small Schmorl's nodes mid cervical spine. No evidence for acute fracture. Mild probably anterior and lateral endplate hypertrophic changes. Discs/spinal canal/neural foramina: No significant disc disease. No spinal canal stenosis. Spinal cord: Caliber and signal intensity of the thoracic cord within normal limits. Conus medullaris is T12-L1 and is unremarkable. No intraspinal mass or collection. Soft tissues: No paraspinal collection. IMPRESSION: No acute abnormality. Minimal endplate degenerative changes without significant central canal or neural foraminal stenosis. Electronically signed by: Miguel Ángel Petty M.D. 08/19/24 22:21 PM
--- NOTE | 2024-08-19 22:30 | Magnetic Resonance Report ---
Exam(s): MRI L SPINE Without Contrast EXAM: MR Lumbar Spine Without Intravenous Contrast CLINICAL HISTORY: Decreased L pateller reflex, weakness, pain. TECHNIQUE: Magnetic resonance images of the lumbar spine without intravenous contrast in multiple planes. COMPARISON: 05/26/2022. FINDINGS: Vertebrae: Maintenance of height of the vertebral bodies. No subluxation. Marrow signal intensity within normal limits. No evidence for fracture. Spinal cord: Conus medullaris is T12-L1 and is unremarkable. Cauda equina is unremarkable. No intraspinal mass or collection. Soft tissues: No paraspinal collection. DISCS/SPINAL CANAL/NEURAL FORAMINA: L1-L2: Unremarkable. No significant disc disease. No stenosis. L2-L3: Unremarkable. No significant disc disease. No stenosis. L3-L4: Partial loss of height to space with desiccation. Minimal diffuse posterior disc bulge without significant stenosis. L4-L5: Unremarkable. No significant disc disease. No stenosis. L5-S1: Partial loss of height of the disc space with desiccation. Diffuse disc bulge with a 4.5 mm diameter left posterior paracentral disc protrusion commonly affecting the left lateral recess. No significant central canal or neural foraminal stenosis. IMPRESSION: No significant interval change. Discharge Lorna changes greatest at L5-S1 with a diffuse bulge in the left posterior percent protrusion predominate affecting the left lateral recess containing the descending left S1 nerve root. Electronically signed by: Miguel Ángel Petty M.D. 08/19/24 22:30 PM
[2024-08-20] MEDS: KETOROLAC TROMETHAMINE 15 MG/ML VIAL IV ONE (01:15)
[2024-08-20] MEDS: KETOROLAC TROMETHAMINE 15 MG/ML VIAL ONE (01:45)
[2024-08-20] MEDS: oxyCODONE HCL IR 5 MG TAB (IMMEDIATE RELEASE) PO PRN (05:23)
[2024-08-20 06:38] LABS: Albumin Globulin Ratio 1.6 (0.9-2); Albumin Level 3.7 gm/dl (3.4-5.0); Bilirubin,Total 0.6 mg/dl (0.2-1.0); Calcium 8.9 mg/dl (8.6-10.3); Creatinine Clr Calc Pharmacy 142.8 ml/min; Globulin 2.3 gm/dl (2.5-4.0); Magnesium 2.1 mg/dl (1.7-2.4); Potassium 3.9 mmol/L (3.5-5.1)
[2024-08-20 08:43] VITALS: BP 142/85; RESP 18; O2SAT 96
[2024-08-20 08:47] LABS: Basophils # (auto) 0.03 K/uL (0.00-0.20); Basophils % (auto) 0.5 %; Eosinophils # (auto) 0.11 K/uL (0.00-0.50); Eosinophils % (auto) 1.8 %; Hematocrit (blood only) 40.4 % (37.0-47.0); Hemoglobin 13.3 g/dl (12.0-16.0); Immature Granulocytes # (auto) 0.01 K/uL (0.01-0.20); Immature Granulocytes % (auto) 0.2 %; Lymphocytes # (auto) 1.86 K/uL (1.20-3.40); Lymphocytes % (auto) 30.4 %; Mean Corpuscular Hemoglobin 29.1 pg (25.0-34.0); Mean Corpuscular Hgb Conc 32.9 g/dL (32.0-36.0); Mean Corpuscular Volume 88.4 fL (80.0-100.0); Mean Platelet Volume 9.2 fL (9.4-12.4); Monocytes # (auto) 0.37 K/uL (0.11-0.59); Monocytes % (auto) 6.1 %; Neutrophils # (auto) 3.73 K/uL (1.40-6.50); Platelet Count 242 K/uL (130-400); RDW Coefficient of Variation 13.2 % (11.5-14.5); RDW Standard Deviation 42.9 fL (36.4-46.3); Red Blood Count 4.57 M/uL (4.20-5.40); White Blood Count 6.11 K/ul (4.8-10.8)
[2024-08-20] MEDS: METOPROLOL SUCC 25MG EXT REL TAB PO SCH (09:14)
[2024-08-20] MEDS: PANTOprazole 40 MG TAB PO SCH (09:14)
[2024-08-20] MEDS: ASPIRIN 81 MG ECTAB PO SCH (09:14)
--- NOTE | 2024-08-20 09:25 | Electrocardiogram Report ---
Test Reason : Blood Pressure : */* mmHG Vent. Rate : 92 BPM Atrial Rate : 92 BPM P-R Int : 126 ms QRS Dur : 82 ms QT Int : 326 ms P-R-T Axes : 50 51 10 degrees QTcB Int : 403 ms Normal sinus rhythm Nonspecific ST abnormality Abnormal ECG When compared with ECG of 25-May-2022 13:21, No significant change was found Confirmed by Remy Ibarra ([id number]) on 08/20/2024 9:25:06 AM Referred By: Confirmed By: Remy Ibarra
[2024-08-20] MEDS: KETOROLAC TROMETHAMINE 15 MG/ML VIAL IV PRN (10:31)
--- NOTE | 2024-08-20 11:00 | Neurology Consultation ---
Date of Consultation August 20, 2024 Assessment & Plan (1) Weakness: (2) Shakiness: (3) Back pain: Plan This patient has a subacute history of perceived weakness in the lower extremities with shaking/tremor associated with proximal muscle soreness and pain. On neurologic examination, she has no weakness of any muscle proximally or distally in any limb. Her reflexes are normal in all 4 limbs and there are no upper motor neuron signs. MRI of the thoracic and lumbar spine were largely unremarkable although she has a slight disc bulge to the left at L5-S1. There is no evidence that this disc is creating any clinical symptoms at this time. The etiology of her symptoms is not readily apparent but a post viral neuromuscular reaction is possible. This is not consistent with Guillain-Wynn syndrome. There is no evidence of active infection or inflammation by laborat ory testing. There is no evidence of any other neurologic issue currently. 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 This is not currently an issue and she has no sensory deficits Patient gets B12 injections every 3 weeks vitamin B12 level is normal. She has a history of occipital neuralgia and migraines. These issues are stable currently Recommendations: 1. There is no indication for a lumbar puncture at this time 2. Should the symptoms persist, an EMG and nerve conduction study of the legs could be done, but this would have to be as an outpatient. 3. I have no further neurologic recommendations to make at this time. Please contact me if I can be of further assistance 4. Consider Lyme antibody titer 5. Follow-up with Dr. Lewis as an outpatient Overall, I spent a total of 90 minutes with this case including review of records, review of MRI films, direct evaluation the patient at bedside, report generation, and discussion of the case with the patient and RN at bedside and Dr. Shea (at bedside), including differential diagnosis and treatment options History of Present Illness Reason for Consultation: Patient is a 39-year-old, who was asked to see at the request of Simran Singh, for neurologic evaluation regarding pain and weakness Requesting Physician: Simran Singh PA-C Attending Physician: Jin Shea MD History of Present Illness This patient has been followed by Dr. Lewis since May 2022. She carries diagnoses of occipital neuralgia and complicated migraines with cervicalgia. arley has had extensive evaluations over the years including CT scans and MRIs. They have all been unremarkable. Currently, she takes baclofen 10 mg 3 times a day for headache prevention and is on 81 mg aspirin tablet daily. She was on Qulipta but this was stopped as it did not help. In late 2021 there was a concern about papilledema. MRI of the brain, MRV, and LP were all unremarkable and an ophthalmologic examination revealed no actual papilledema. The patient was having unusual stages and ended up getting a skin biopsy showing small fiber neuropathy. The etiology was likely excess B6. B6 was addressed and over time her neuropathic symptoms resolved. She has no numbness, dysesthesias or burning pain in her feet or hands. There is a diagnosis of autonomic dysfunction but I am uncertain what that is associated with. She does have a history of some nonspecific dizziness and tinnitus. She has chronic pain particularly in her occipital cervical junction. Currently she is getting B12 shots every 3 weeks and occipital nerve blocks bilaterally every 12 weeks (at [facility] in [place]). About 3 weeks ago she had a typical upper respiratory tract infection ("cold"). She had congestion and developed a cough. She was given a Z-Edis for sinusitis but later developed shortness of breath. She was diagnosed with pneumonia and was given 5 days of prednisone. Her breathing is back to baseline. She is not coughing more. She has no fevers. Throughout this 2 to 3-week period, she is noted weakness and shakiness in her lower extremities bilaterally and symmetrically. She does not typically have low back pain but, over the last 5 days, there is some achiness and pain in her hips and thighs bilaterally. She denies joint pain or any new numbness or sensory symptoms. She denies urinary or fecal incontinence. She has no vision issues or cognitive changes. There are no other joint pain symptoms. Her gait is unsteady but she is not falling. She arrived to the emergency room on August 19 at 1126 with a temperature of 37.1, pulse 104, respiratory rate 18, blood pressure 158/87, and O2 saturation 98%. Her exam was nonfocal and essentially unremarkable. CBC and CHEM profile are normal. Sed rate was 19 and CRP was less than 0.5. TSH was 0.495 and CK was 105. B12 was 562 and there is no babesiosis or anaplasmosis. She is not . MRI of the thoracic spine was unremarkable and I reviewed these films. MRI of the lumbar spine showed a L5-S1 disc bulge to the left according to the report. When I reviewed these films I saw a very minor bulge centrally and slightly to the left at L5-S1 but I do not believe it was abutting or impinging upon nerve root. Chest x-ray was unremarkable. Pceo-guy-gkltnof medicines have not helped her pain but injections of ketorolac have helped her Allergies Allergy/AdvReac Type Severity Reaction Status Date / Time gadobutrol [From Gadavist] AdvReac Intermediate Confusion Unverified 08/19/24 16:12 metoclopramide [From Reglan] AdvReac Intermediate MUSCLE Verified 08/19/24 16:12 SPASMS/TWITCHES Home Medications Medication Instructions Recorded Confirmed Type fluticasone propionate 50 2 spray intranasal DAILY PRN 04/01/21 08/19/24 History mcg/actuation nasal Congestion spray,suspension (Allergy Relief (fluticasone)) Lactobacillus acidophilus 250 1.5 mg PO DAILY 05/25/22 08/19/24 History million cell capsule (Probiotic Acidophilus) magnesium oxide 400 mg PO HS 05/25/22 08/19/24 History aspirin 81 mg tablet,delayed 81 mg PO QAM #30 tabs 05/26/22 08/19/24 Rx release metoprolol succinate 25 mg 12.5 mg PO DAILY 11/06/22 08/19/24 History tablet,extended release 24 hr syringe with needle 3 mL 23 x 1" #50 ea 12/25/23 Rx (BD SafetyGlide Syringe) albuterol sulfate 90 mcg/actuation 2 puff inhalation TID 08/19/24 08/19/24 History aerosol inhaler baclofen 20 mg tablet 20 mg PO TID 08/19/24 08/19/24 History cyanocobalamin (vitamin B-12) 1,000 mcg IM UD 08/19/24 08/19/24 History 1,000 mcg/mL injection solution omeprazole 40 mg capsule,delayed 40 mg PO QAM 08/19/24 08/19/24 History release ondansetron 4 mg disintegrating 4 mg PO Q8H PRN Nausea And Vomiting 08/19/24 08/19/24 History tablet sucralfate 1 gram tablet 1 g PO ACHS 08/19/24 08/19/24 History Patient History Medical History Headache Cervicalgia Occipital neuralgia Stroke-like symptoms Hypophosphatemia History of COVID-19 DX'D 06/2020 AT [id number] FOR 1 DAY, ACHINESS, LOSS TASTE AND SMELL-RECOVERED AT HOME-ALL SYMPTOMS RESOLVED EXCEPT STILL CAN'T SMELL GERD (gastroesophageal reflux disease) Migraine HX Hypertension affecting (10/30/14) Acute pancreatitis Elevated blood pressure complicating in third trimester, antepartum (10/26/14) Surgical History History of tooth extraction WISDOM TEETH History of esophagogastroduodenoscopy (EGD) History of cholecystectomy [place] teeth extracted Family History Mother Hypothyroidism Breast cancer Father Hypertension Brother Hypertension Grandmother (Maternal) Hypothyroidism Family history of diabetes mellitus Aunt Hypothyroidism Social History Smoking Status: Never smoker Second Hand Exposure: No; Do You Dip or Chew Tobacco: No; Hx Alcohol Use: Yes Alcohol type: beer Alcohol Intake Frequency Comment: very rare Hx Substance Use: No Preferred Language: Slovenian Communication Ability: Effective Facility Service Associate Required: No Beliefs That Will Affect Care: None Current Living Situation: Spouse and Family Current Living Situation Comment: with and children current occupational status: employed 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 Feels Safe at Home: Yes Assistive Devices: None Review of Systems Constitutional: + fatigue and + weakness; no fever Eyes: no diplopia, no eye pain and no worsening vision Ear, Nose, Mouth, Throat: no ear pain, no tinnitus, no hearing loss, no dizziness, no snoring, no hoarseness and no dysphagia Respiratory: no cough and no dyspnea Cardiovascular: no chest pain, no palpitations and no lightheadedness Gastrointestinal: no abdominal pain, no nausea and no vomiting Genitourinary: no dysuria, no urinary frequency and no urinary incontinence Musculoskeletal: + back pain; no neck pain, no radicular pain, no joint pain and no myalgia Integumentary: no rash and no lesions Neurologic: + localized weakness and + abnormal move ments; no gait abnormality, no generalized weakness, no tingling, no numbness, no tremor(s), no headache(s), no abnormal speech, no confusion and no memory loss Psychiatric: no depression, no irritability, no anxiety, no difficulty concentrating, no confusion and no hallucinations Endocrine: no fatigue and no flushing Hematologic / Lymphatic: no easy bleeding and no easy bruising Allergy / Immunological: no urticaria and no problem reported Exam (Neuro) Physical Exam: The patient is right-handed. The patient is awake, alert, and attentive. Speech is normal without any aphasia or dysarthria. Mentation and thought processes are intact, with full orientation and normal fund of knowledge. Mood and affect are normal and appropriate. Appearance and grooming are normal. Short and long-term memory are intact. The discs are sharp with positive venous pulsations bilaterally. There are no exudates, hemorrhages, or blood vessel changes seen. Pupils are 4 mm bilaterally and reactive to light. Extraocular eye muscles are intact without nystagmus. Visual acuity and visual samuels seem normal grossly to confrontation. There are no deficits to sensation in the face in all 3 distributions of the fifth cranial nerve bilaterally. Corneal reflexes are positive bilaterally. Facial strength and symmetry was normal bilaterally. Hearing seems intact grossly to voice and finger rub bilaterally. Palate moves well without asymmetry. There is normal sternocleidomastoid and trapezius strength bilaterally. Tongue is midline with good strength bilaterally. Neck has a full range of motion without discomfort. There are no cervical bruits bilaterally. There are no cranial or ocular bruits. Heart is without murmur. There is a regular rhythm and rate. Cervical, thoracic, and lumbar spine are nontender to palpation. Gait is narrow based, with good arm swing, turns, and stance. Balance is normal eyes open or closed. She went from a lying to sitting to standing position on her own without any help, very quickly and without any difficulty. With outstretched arms there is no drift. There are no resting, postural, or action tremors. There is no ataxia with finger to nose testing. There is good facility in the hands. No other abnormal involuntary movements are noted. Motor strength is 5/5 diffusely in the arms bilaterally including deltoids, biceps, triceps, brachioradialis, wrist flexors and extensors, profiler, and intrinsic hand muscles. Motor strength is 5/5 diffusely in the legs bilaterally including hip flexors, quadriceps, hamstrings, gastrocnemius, tibialis anterior, tibialis posterior, and Peroneii muscles bilaterally. Toe extensors are normal and there is good bulk in the extensor digitorum brevis muscles bilaterally. Every muscle tested in the lower extremity had a giveaway component with shaking but her muscle strength was quite normal and I could not break any muscle both proximally or distally bilaterally. The limbs have good tone without rigidity or spasticity. There is no atrophy noted in the muscles. Muscle bulk is normal, there is no tenderness to p alpation, no myotonia to percussion, and no fasciculations seen. Sensory examination is intact to touch and pin throughout all 4 limbs diffusely. Reflexes are 2/4 in the biceps, triceps, brachioradialis, quadriceps, and Achilles tendons bilaterally. Toes are downgoing with plantar stimulation bilaterally. Peripheral pulses are present and of normal quality distally in all 4 limbs. There is no peripheral edema noted in the limbs. Results & Data Vital Signs (Past 12 Hours) Vital Signs Pulse Pulse Pulse Resp BP Pulse Ox O2 Del Method 08/20/24 08:42 87 18 142/85 H 96 Room Air 08/20/24 07:19 80 08/20/24 04:07 58 L 16 139/76 97 Room Air 08/20/24 03:10 65 08/20/24 02:08 62 16 140/79 97 Room Air 08/20/24 01:21 79 16 130/74 95 Room Air 08/19/24 23:32 83 18 130/74 94 Room Air PG Care Time/CCT Total # of Minutes Spent Total Time Spent with Patient: Total time spent is greater than 50% in coordination of care (as documented) at patient's floor/unit and/or counseling patient: Coding Level of Care Code 61645 INT INP/OBS CARE 3/75MIN Diagnoses Weakness R53.1 Shakiness R25.1 Back pain M54.9 Back pain laterality: unspecified Back pain location: low back pain Chronicity: acute Time Spent (min) 90 (3) Back pain Back pain laterality: unspecified Back pain location: low back pain Chronicity: acute
[2024-08-20] MEDS ORDERED: CELECOXIB 100 MG CAP PO PRN (11:35)
--- NOTE | 2024-08-20 12:11 | Discharge Summary ---
Date of Service August 20, 2024 Admission HPI Per Admitting Provider This is a 39-year-old female who has a significant past medical history of primary hyperparathyroidism, migraine, history of bilateral occipital neuralgia, small fiber neuropathy and balance problems who presents to ED secondary to bilateral weakness. She follows with [facility] neurology secondary to biopsy confirmed small fiber neuropathy. She was last seen in June 2023. She also follows with pain management in [place] for refractory cervicogenic headache. She states majority of her symptoms started 3 years ago after having her parathyroid removed. After chart review it also does appear that she is following with the [facility] at [place]. She had recent thyroid testing done on August 04/2024 with a TSH of 0.59, free T4 of 1.2, PTH of 55 and 25-hydroxy vitamin D of 31. She did recently complete a course of azithromycin and prednisone due to concern for pneumonia. Outpt CXR was negative for PNA. Patient reports over the last 2 to 3 weeks having increasing lower extremity weakness right greater than left, pain and shakiness to her lower extremities. She denies any numbness to her lower extremities. She reports tingling and a [id number] sensation in the posterior aspect of her lower extremities extending to her calfs. She feels extreme weakness in her quads. She is also having bilateral gluteal pain and lower back pain. She feels as if she is almost ataxic at times. She denies any falls. She feels very unsteady when she walks. Other than her recent upper respiratory illness she denies any recent illness or sick contacts. She also reports nausea and occasional vomiting with oral intake. She has been following GI for this and was recently prescribed omeprazole and Carafate. She did not yet start the Carafate. She does have history of hiatal hernia and was scheduled for upper endoscopy tomorrow. She occasionally feels like food is getting stuck. In particular she is having more difficulty eating meats. She denies any fever, chills, sweats, lightheadedness, dizziness, chest pain, shortness of breath, cough, dysuria, increased urgency or frequency with urination or change in her bowel habits. Due to her progressing symptoms she spoke with her neurologist who recommended she come to ED for further evaluation to rule out possible neuritis or GBS. She denies any upper extremity or truncal sx. She denies any recent tick or insect bite. + FH for lupus. No recent immunizations. Initially ED contacted neurology who Recommended outpatient workup. Mother is at bedside who also helps elicit history and states that, "there is something wrong with her daughter as this is not like her." Patient is very active. She has 2 children at home, sons 9 and 14. She denies any increased stress at home. She denies any tobacco use. She occasionally/rarely uses alcohol. She does have her medical marijuana card for which she uses tinctures for her chronic head pain. Admission Exam Per Admitting Provider Constitutional: WD/WN, vitals as above, NAD, sitting up in bed, pleasant, conversing easily Head: Normocephalic, Atraumatic Eyes: PERRL, conjunctivae normal, anicteric sclerae ENMT: external ear and nose normal, oropharynx normal Neck: trachea midline, no thyromegaly normal visual inspection Respiratory: normal respiratory effort, lungs clear to auscultation, no wheeze, rales, rhonchi. Normal insp/exp effort, no accessory muscle use Cardiovascular: RRR, no murmur, no edema Vessels: no JVD or carotid bruit Chest: normal inspection of chest Abdomen: normal bowel sounds, soft, nontender, no hepatosplenomegaly Musculoskeletal: no cyanosis or clubbing, upper extremities motor strength 5/5 , lower ext 4/5 +2 R patellar reflex, unable to elicit LLE patellar reflex, negative clonus Skin: no rashes, warm and dry normal turgor Neurologic: PERRL, EOMI, accommodation nl, no face palsy, no dysarthria CN's II-XI intact bilaterally and moves all extremities Psychiatric: A+Ox3, euthymic affect Lymphatic: no cervical or axillary lymphadenopathy : deferred Principal Diagnosis Muscle pain, bilateral buttocks and bilateral thigh Weakness Discharge Exam Constitutional: WD/WN, vitals as above, NAD, sitting up in bed, pleasant, conversing easily Head: Normocephalic, Atraumatic Eyes: PERRL, conjunctivae normal, anicteric sclerae ENMT: external ear and nose normal, oropharynx normal Neck: trachea midline, no thyromegaly normal visual inspection Respiratory: normal respiratory effort, lungs clear to auscultation, no wheeze, rales, rhonchi. Normal insp/exp effort, no accessory muscle use Cardiovascular: RRR, no murmur, no edema Vessels: no JVD or carotid bruit Chest: normal inspection of chest Abdomen: normal bowel sounds, soft, nontender, no hepatosplenomegaly Musculoskeletal: no cyanosis or clubbing, b/l reflexes and strength good and wnl. Skin: no rashes, warm and dry normal turgor , no skin lesion Neurologic: PERRL, EOMI, accommodation nl, no face palsy, no dysarthria CN's II-XI intact bilaterally and moves all extremities Psychiatric: A+Ox3, euthymic affect Lymphatic: no cervical or axillary lymphadenopathy : deferred Discharge Data Allergies Allergy/AdvReac Type Severity Reaction Status Date / Time gadobutrol [From Gadavist] AdvReac Intermediate Confusion Unverified 08/19/24 16:12 metoclopramide [From Reglan] AdvReac Intermediate MUSCLE Verified 08/19/24 16:12 SPASMS/TWITCHES Consultations 08/19/24 15:38 ED Decision to Admit Stat 08/19/24 19:11 Consult Neurology Routine Ordered Studies 08/19/24 17:32 MR lumbar spine wo con Routine MR thoracic spine wo con Routine Hospital Course (1) Weakness: (2) Shakiness: (3) Abnormal urinalysis: Plan Patient was seen and examined at bedside as a follow-up for bilateral lower extremity weakness/pain in the setting of recent viral infection in the past few weeks. Her strength/sensation/reflexes bilaterally are fairly normal. Patient denies shortness of breath. Patient denies current sore throat or fever. Discussed with neurology, no concerns for GBS. Patient denies any pain or burning while passing urine, will await urine culture, patient advised to follow-up on the final results of urine culture during her PCP visit in next few days upon discharge. Lyme test will be sent prior to discharge, patient advised to follow-up with PCP office on the final results. Pain meds for LE and b/l buttocks pain. Patient is being discharged home with following instruction at the point of discharge: Follow-up with your primary care physician within a week time and likely you will need labs CBC/CMP/magnesium/phosphorus. You were evaluated for lower extremity weakness/pain, Neurology evaluated you. Follow-up with neurology in 1 to 2 weeks time upon discharge. You will be given Lyme test prior to discharge today, follow-up on the final results of the Lyme test and urine culture results during your PCP visit within next 3 to 5 days. Take your medications as prescribed. Please make sure that you are able to get your medications today by calling your pharmacy before you leave the hospital so that your treatment continuity is not broken. Home Health Attestation I certify that this patient is under my care and that I, or a physicians school health assistant working with me, had a face to-face encounter that meets the home health [id number] encounter requirements with this patient. The encounter with the patient was in whole, or in part, for the following medical condition, which is the primary reason for home health care (list medical condition): I certify that, based on my findings, the following services are medically necessary home health services: My clinical findings support the need for the above services because: Further, I certify that my clinical findings support that this patient is homebound (i.e. absences from home require considerable and taxing effort and are for medical reasons or cheondoism services or infrequently or of short du ration when for other reasons) because: Certification for Home Health Services: Based on the above findings, I certify that this patient is confined to the home and needs intermittent longterm care, physical therapy and/or speech therapy or continues to need occupational therapy. The patient is under my care, and I have initiated the establishment of the plan of care. This patient will be followed by a physician who will periodically review the plan of care. Total Time Total Time Spent Total Time Spent (In Minutes): 35 Discharge Plan Discharge Items Patient Disposition: Home - Self-Care Reason For Visit: WEAKNESS Discharge Diagnosis: Muscle pain, bilateral buttocks and bilateral thigh Weakness Activity: Per Instructions section Activity Comment: avoid heavy lifting, avoid fall. Non-emergency contact: Primary Care Provider Call non-emergency contact if: you have any medication questions, your symptoms worsen and your temperature is above 101.5 Follow-up/Referrals: Naveen Heard DO [Primary Care Provider] - Diet: Regular Addtl Attending Provider Instructions: Follow-up with your primary care physician within a week time and likely you will need labs CBC/CMP/magnesium/phosphorus. You were evaluated for lower extremity weakness/pain, Neurology evaluated you. Follow-up with neurology in 1 to 2 weeks time upon discharge. You will be given Lyme test prior to discharge today, follow-up on the final results of the Lyme test and urine culture results during your PCP visit within next 3 to 5 days. Take your medications as prescribed. Please make sure that you are able to get your medications today by calling your pharmacy before you leave the hospital so that your treatment continuity is not broken. Pending Studies at Discharge: Yes Stand-Alone Forms: My [facility] 3yy game platform, Smoking Cessation Medications and DC Order Prescriptions: New celecoxib [Celebrex] 100 mg Capsule 100 mg PO Q12H PRN (Reason: pain) Qty: 20 0RF Rx Instructions: take per manager intensive care's recommendation every 12 hours. oxycodone 5 mg Tablet 5 mg PO BID PRN (Reason: severe pain (scale score 7-10)) Qty: 6 0RF Continued (DME) BD SafetyGlide Syringe 3 mL 23 x 1" syringe See Rx Instructions .ROUTE .MEDSUPPLY Qty: 50 0RF Rx Instructions: As directed metoprolol succinate 25 mg tablet extended release 24 hr 12.5 mg PO DAILY fluticasone propionate [Allergy Relief (fluticasone)] 50 mcg/actuation spray,suspension 2 spray intranasal DAILY PRN (Reason: Congestion) Rx Instructions: administer into each nostril Probiotic Acidophilus 1.5 mg (250 million cell) capsule 1.5 mg PO DAILY magnesium oxide 400 mg magnesium Tablet 400 mg PO HS aspirin 81 mg Tablet,Delayed Release (Dr/Ec) 81 mg PO QAM Qty: 30 0RF sucralfate 1 gram tablet 1 g PO ACHS omeprazole 40 mg capsule,delayed release(DR/EC) 40 mg PO QAM baclofen 20 mg tablet 20 mg PO TID albuterol sulfate 90 mcg/actuation HFA aerosol inhaler 2 puff INHALATION TID ondansetron 4 mg tablet,disintegrating 4 mg PO Q8H PRN (Reason: Nausea And Vomiting) cyanocobalamin (vitamin B-12) 1,000 mcg/mL solution 1,000 mcg IM UD Rx Instructions: 1,000 mcg intramuscularly Q 3 weeks Discharge Orders: Discharge Order (Routine); Ordered 08/20/24 Ordered By: Jin Shea Admission Data Admit Date/Time: 08/19/24 16:59 Attending Provider: Jin Shea Admit Provider: Louie Gill Primary Care Provider: Naveen Heard Other Providers: Damion Sykes; Louie Gill
[2024-08-20 12:27] VITALS: PULSE 79
--- OUTSIDE RECORDS SUMMARY | 2024-08-21 02:46 | External Medical Summary ---
Author Name Unknown Address Unknown Organization [id number] [address] [place] [id number] Laboratory Report Ordering Provider Test Date Status BRADEN HE 08/11/2024 08:24:11 Final Observation Date Value Abnormality Reference (Units ) Status BUN 08/11/2024 08:24:11 14 6-20 (mg/dL) Final Creatinine 08/11/2024 08:24:11 0.9 0.5-1.0 (mg/dL) Final Glomerular filtration rate/1.73 sq M.predicted [Volume Rate/Area] in Serum, Plasma or Blood by Creatinine-based formula (CKD-EPI) 08/11/2024 08:24:11 89 >=60 (mL/min) Final eGFR is calculated based on the CKD-EPI 2020 equation. Sodium 08/11/2024 08:24:11 141 135-146 (m mol/L) Final Potassium 08/11/2024 08:24:11 3.8 3.5-5.1 (m mol/L) Final Cl 08/11/2024 08:24:11 102 98-107 (mm ol/L) Final CO2 08/11/2024 08:24:11 29 22-32 (mmo l/L) Final Anion gap 08/11/2024 08:24:11 10 7-15 (mmol /L) Final Glucose 08/11/2024 08:24:11 91 70-120 (mg /dL) Final Calcium 08/11/2024 08:24:11 10.2 8.4-10.2 ( mg/dL) Final Performing Location [facility] [address] [place] [id number]
--- OUTSIDE RECORDS SUMMARY | 2024-08-21 02:46 | External Medical Summary | Summary of Care ---
Author Name Unknown Organization [facility] Address [address] [place] [address] Phone [phone] Care Team Providers Care Security Installation Sales Technician Name Role Phone Adina Heardstephanie Mayorgasamson Primary Care Provider Reason for Visit * Reason Comments Outpatient Testing Encounter Details Date Type Department Care Team (Late st Contact Info) Description 08/11/2024 8:50 AM EST Laboratory Laboratory, [facility] [address] [place] [address] [facility] [address] [place] [address] Persistent vomiting; Choking due to food (regurgitated), initial encounter; SOB (shortness of breath); Hiatal hernia Allergies Active Allergy Reactions Criticality Noted Date Comments Metoclopramide 05/25/2022 Other reaction(s): MUSCLE SPASMS/TWITCHES documented as of this encounter (statuses as of 08/11/2024) Medications Levonorgestrel 20 MCG/24HR Intrauterine Intrauterine Device Inserted on 02/25/15 1 Each 0 02/26/20 15 Active Probiotic Acidophilus BioBeads Oral Capsule Take 1 Cap by mouth at bedtime. Active Magnesium 400 MG Oral Capsule Take 1 Capsule by mouth at bedtime. Active Riboflavin 400 MG Oral Tablet Take 1 Tablet by mouth in the morning. Active Meclizine HCl 12.5 MG Oral Tablet (Antivert) Take 2 tablets by mouth up to three times a day as needed for being unbalanced 180 Tablet 11 04/14/20 22 Active Additional Information Patient not taking.Reported on 08/11/2024 Fluticasone Propionate 50 MCG/ACT Nasal Suspension (Flonase)Indicatio ns:Acute non-recurrent frontal sinusitis SQUIRT 2 SPRAYS IN EACH NOSTRIL ONCE DAILY 1 Each 11/13/19 23 Active Metoprolol Succinate ER 25 MG Oral Tablet Extended Release 24 Hour (toPROL XL)Indications:Pal pitations,SVT (supraventricular tachycardia) (HCC),Tachycardia Take 0.5 Tablets by mouth in the morning. 45 Tablet 3 09/12/20 23 Active Baclofen 20 MG Oral TabletIndications: Bilateral occipital neuralgia,Lighthea dedness,Depersonal ization syndrome (HCC) take 1 tablet by mouth at bedtime and 1/2 to 1 tablet up to three times a day if needed for HEAD AND NECK PAIN 120 Tablet 11 02/27/20 24 Active Aspirin Low Dose 81 MG Oral Tablet Delayed Release (aspirin enteric coated)Indications :Dizziness take 1 tablet by mouth IN THE MORNING 90 Tablet 07/24/20 24 Active predniSONE 20 MG Oral Tablet (Deltasone)Indicat ions:Acute cough Take 1 Tablet by mouth in the morning for 7 days. 7 Tablet 08/04/20 24 024 Active Additional Information Patient not taking.Reported on 08/11/2024 Cyanocobalamin 1000 MCG/ML Injection Solution (Cyanocobalamin)In dications:Persiste nt vomiting,Choking due to food (regurgitated), initial encounter,SOB (shortness of breath),Hiatal hernia Inject 1 mL into a large muscle every 3 weeks. 11/18/19 23 Active Omeprazole 40 MG Oral Capsule Delayed Release (PriLOSEC)Indicati ons:Persistent vomiting,Choking due to food (regurgitated), initial encounter,SOB (shortness of breath),Hiatal hernia Take 1 Capsule by mouth in the morning. 30 Capsule 5 08/11/20 24 Active Sucralfate 1 GM Oral Tablet (Carafate)Indicati ons:Persistent vomiting,Choking due to food (regurgitated), initial encounter,SOB (shortness of breath),Hiatal hernia Take 1 Tablet by mouth in the morning and 1 Tablet at noon and 1 Tablet in the evening. Dissolve into a slurry. 120 Tablet 3 08/11/20 24 Active Ondansetron 4 MG Oral Tablet Disintegrating (Zofran)Indication s:Persistent vomiting,Choking due to food (regurgitated), initial encounter,SOB (shortness of breath),Hiatal hernia Place 1 Tablet on tongue every 8 hours as needed for Nausea. dissolve on tongue. 15 Tablet 3 08/11/20 24 Active documented as of this encounter (statuses as of 08/11/2024) Active Problems Problem Noted Date Diagnosed Date History of 2019 novel coronavirus disease (COVID -19) 11/01/2022 Balance problem 04/04/2022 Paresthesia 04/04/2022 Bilateral occipital neuralgia 11/24/2021 Small fiber neuropathy 11/24/2021 Hyperparathyroidism, primary 09/29/2021 Acute frontal sinusitis 08/20/2015 Pancreatitis 07/16/2015 Gall stone 07/16/2015 Pain of mid back 11/11/2012 Shortness of breath 11/11/2012 Acute sinusitis 06/05/2012 Migraine without aura and wi thout status migrainosus, not intractable 2009 documented as of this encounter (statuses as of 08/11/2024) Resolved Problems Problem Noted Date Diagnosed Date Resolved Date [place] eye 07/16/2015 09/29/2020 Antepartum abnormal glucose tolerance of mother 08/12/2014 11/23/2014 Overview (08/17/2014): Glucola elevated. 3hr GTT ordered--WNL Obesity in 05/12/2014 015 Overview (05/12/2014): Early glucola Encounter for supervision of other normal 03/10/2014 11/23/2014 Overview (01/18/2016): U/s done 10/06 (35w2d)for size>dates: 1. Head growth is greater than 2 standard deviations above mean. No hydrocephalus. 2. EFW: 3132 + / - 457 g which is between the 90th and 95th percentiles ICD-10 update of inactive term Encounter for supervision of other normal 10/03/2013 01/09/2014 Overview (01/18/2016): ICD-10 update of inactive term Threatened , unspeci fied as to episode of care 09/29/2013 10/03/2013 Spasm of muscle 11/11/2012 09/29/2020 Pain in right ankle 03/11/2012 05/02/20 Acute tonsillitis 04/07/2011 05/02/2012 Acute sinusitis 01/31/2011 05/02/2012 Obesity, Class II, BMI 35-39 .9, isolated (see actual BMI) 12/13/2009 12/06/2021 Overview (12/13/2009): Per Obesity Taxonomy, Pt declines nutrition consult Polyneuropathy in other dise ases classified elsewhere 08/25/2009 11/27/2020 Backache 08/25/2009 05/02/2012 Normal , first 08/16/200911/2009 Obesity, Class I, BMI 30.0-3 4.9 (see actual BMI) 08/16/2009 12/13/2009 Overview (12/13/2009): Per Obesity Taxonomy, Pt declines nutrition consult documented as of this encounter (statuses as of 08/11/2024) Immunizations Name Administration Dates Next Due HPV Vaccine, 4-Valent 05/18/1996,12/18/1995,09/1995 TDAP, Age 7 and older, IM (Adacel) 11/04/2014, documented as of this encounter Social History Tobacco Use Types Packs/Day Years Used Date Smoking Tobacco: Never Smokeless Tobacco: Never Alcohol Use Standard Drinks/Week Comments Yes 0 (1 standard drink = 0.6 oz pur e alcohol) very occ. PHQ-2 Answer Date Recorded PHQ Adult Total Score 0 07/31/2024 Hunger Vital Sign Answer Date Recorded Within the past 12 months, y ou worried that your food would run out before you got the money to buy more. Never true 09/29/19 21 Within the past 12 months, t he food you bought just didn't last and you didn't have money to get more. 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 Not on file Not on file documented as of this encounter Plan of Treatment Upcoming Encounters Date Type Department Care Team (Latest Contact Info) Description 4 3:00 PM EST Imaging Radiology [facility] [address] [facility] [address] 4 1:30 PM EST Hospital Encounter [facility] [phone] Rama Garrison MD [address] [place] [address] 4 1:30 PM EST - 4 2:00 PM EST Surgery ENDO [facility], Endoscopy Room [address] [place] [phone] Rama Garrison MD [address] [place] [address] ESOPHAGOGASTRODUODENOSCOPY (EGD), FLEXIBLE, TRANSORAL, DIAGNOSTIC 4 8:30 AM EST Office Visit [facility]olog y, [facility] [address] [facility] [address] Jesenia Ariza CRNP [address] [facility] [place] [address] 4 2:20 PM EST Telemedicine Neurology [address] [place] [phone] Cel[facility] Sexton [facility] [address] [facility] [place] [address] 4 8:00 AM EST Office Visit Family Practice [facility] [address] [facility] [place] [address] Lin Alanis CRNP [address] [place] [address] 4 8:00 AM EST Telemedicine Endocrinology, [place] [address] [facility] [place] [address] Earl Prado MD [address] [place] [address] 5 8:00 AM EST Office Visit [facility]iology, [facility] [place] [address] Debbie Huertas CRNP [address] [place] [address] 5 3:00 PM EST Office Visit [facility] [address] [place] [phone] Destini Heard DO [address] [place] [address] 5 2:00 PM EST Office Visit Gastroenterolog y, [facility] [address] [facility] [place] [address] Jesenia Ariza CRNP [address] [place] [address] Pending Results Name Type Priority Associated Diagnoses Date /Time VITAMIN B12 Lab Routine Persistent vomiting Choking due to food (regurgitated), initial encounter SOB (shortness of breath) Hiatal hernia 08/11/2024 8:24 AM EST MAGNESIUM Lab Routine Persistent vomiting Choking due to food (regurgitated), initial encounter SOB (shortness of breath) Hiatal hernia 08/11/2024 8:24 AM EST CBC WITH WBC DIFFERENTIAL Lab Routine Persistent vomiting Choking due to food (regurgitated), initial encounter SOB (shortness of breath) Hiatal hernia 08/11/2024 8:24 AM EST FERRITIN Lab Routine Persistent vomiting Choking due to food (regurgitated), initial encounter SOB (shortness of breath) Hiatal hernia 08/11/2024 8:24 AM EST BASIC METABOLIC PANEL Lab Routine Persistent vomiting Choking due to food (regurgitated), initial encounter SOB (shortness of breath) Hiatal hernia 08/11/2024 8:24 AM EST CBC Lab Routine Persistent vomiting Choking due to food (regurgitated), initial encounter SOB (shortness of breath) Hiatal hernia 08/11/2024 8:24 AM EST DIFFERENTIAL, AUTOMATED Lab Routine Persistent vomiting Choking due to food (regurgitated), initial encounter SOB (shortness of breath) Hiatal hernia 08/11/2024 8:24 AM EST Scheduled Procedures Name Priority Associated Diagnoses Date/Ti me ESOPHAGOGASTRODUODENOSCOPY ( EGD), FLEXIBLE, TRANSORAL, DIAGNOSTIC Nausea and vomiting 08/20/2024 1:30 PM EST Health Maintenance Due Date Last Done Comments Hepatitis B Vaccine (1 of 3 - 19+ 3-dose series) 2005 HPV/Co-Test 2016 COVID-19 Vaccine ( season) 2024 Influenza Vaccine (FLU shot) (#1) 2024 Cervical Cancer Screening 10/20/2024 Pap Smear 10/20/2024 10/20/2021, 07/0 11/2017, 10/03/2013, Additional history exists DTap/Tdap Vaccines (3 - Td or Tdap) 11/04/2024 11/04/2014, 02/27/2010 Depression Screening 07/31/2025 07/31/2024 IUD 7-Year 03/04/2027 03/04/2020 Diabetes Screening 07/31/2027 07/31/2024, 1 09/30/2023, 06/14/2023, Additional history exists HPV (Gardasil) Vaccine Completed 6, 12/18/1995, 10/18/1995 MENINGOCOCCAL (MENACTRA/MENVEO) Aged Out No longer eligible based on patient's age to complete this topic Pneumococcal Vaccine: Pediatrics (0 to 5 Years) and At-Risk Patients (6 to 64 Years) Aged Out No longer eligible based on patient's age to complete this topic documented as of this encounter Medical Devices Not on filedocumented as of this encounter Visit Diagnoses Diagnosis Persistent vomiting Choking due to food (regurgitated), initial encounter SOB (shortness of breath) Shortness of breath Hiatal hernia Diaphragmatic hernia without mention of obstruction or gangrene Nausea and vomiting Nausea with vomiting documented in this encounter Care Teams Security Installation Sales Technician Relationship Specialty Start Date End Date Naveen Heard DO [address] [place] [address] PCP - General Family Medicine 09/20/20 documented as of this encounter
--- OUTSIDE RECORDS SUMMARY | 2024-08-21 02:46 | External Medical Summary ---
Author Name Unknown Address Unknown Organization [id number]:[facility] [address] [place] [address] Laboratory Report Ordering Provider Test Date Status BRADEN HE 08/11/2024 08:24:11 Final Observation Date Value Abnormality Reference (Units ) Status Magnesium 08/11/2024 08:24:11 2.4 1.5-2.6 (m g/dL) Final Performing Location [facility] [address] [facility] [address]
--- OUTSIDE RECORDS SUMMARY | 2024-08-21 02:46 | External Medical Summary | Summary of Care ---
Author Name Unknown Organization [facility] Address [address] [place] [address] Phone [phone] Care Team Providers Care Metal Weather Stripper Name Role Phone Naveen Heard Mukeshsamson Primary Care Provider Reason for Visit * Reason Comments NEW PATIENT Referred by Dr. Michael restrepo GERD Hiatal HerniaPt repo rts that she has been throwing up for the past 7-10 days. Stomach is very uncomfortable. She has tried to adjust her diet, but nothing helps. Encounter Details Date Type Department Care Team (Late st Contact Info) Description 08/11/2024 7:30 AM EST Office Visit Gastroenterology, [facility] [address] [facility] [place] [address] Jesenia Ariza CRNP [address] [facility] [place] [address] Persistent vomiting*; Choking due to food (regurgitated), initial encounter; [...] into a slurry. 120 Tablet 3 08/11/20 Active Ondansetron 4 MG Oral Tablet Disintegrating (Zofran)Indication s:Persistent vomiting,Choking due to food (regurgitated), initial encounter,SOB (shortness of breath),Hiatal hernia Place 1 Tablet on tongue every 8 hours as needed for Nausea. dissolve on tongue. 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 Not on file Not on file documented as of this encounter Last Filed Vital Signs Vital Sign Reading Time Taken Comments Blood Pressure 111/54 08/11/2024 7:34 AM EST Pulse 69 08/11/2024 7:34 AM EST Temperature 36.7 C (98.1 F) 08/11/2024 7:34 AM ES T Respiratory Rate - - Oxygen Saturation - - Inhaled Oxygen Concentration - - Weight 103.6 kg (228 lb 6.4 oz) 08/11/2024 7:34 AM EST Height 168.9 cm (5' 6.5") 08/11/2024 7:34 AM EST Body Mass Index 36.31 08/11/2024 7:34 AM EST documented in this encounter Progress Notes * Jesenia Ariza CRNP - 08/11/2024 7:30 AM EST Gastroenterology Outpatient Visit 08/11/2024 Referring physician:Naveen Heard DO PCP: Naveen Heard DO Past medical history: GERD + hiatal hernia Positive Mcfadden 06/2021 History of Dysphagia, normal esophageal motility study 07/2021 History of pancreatitis Small fiber neuropathy, follows with neurology Hyperparathyroidism s/p surgery Heterozygous prothrombin gene mutation without history of DVT/PE- follows with Hematology, on aspirin. CC: Persistent vomiting HPI: Very pleasant 39-year-old female presents today to the gastroenterology office as a new patient after being referred by her PCP due to persistent vomiting. Notes that dating back several years she would have issues with swallowing and regurgitation of food a few hours after eating. Symptoms are usually very mild and she goes back to feeling well/normal after it occurs. However, since last , 07/31/2024; the vomiting has been worse/persistent. Notes that she was at work-- she felt shaky-- thought that she needed to eat something however instantly vomited up the food that she consumed. Since then she feels as though food is sitting in her chest/esophagus. She is unable to eat any type of solid food without vomiting. She will vomit multiple times and feels as though she is having difficulty getting the vomit/regurgitated food up. She ended up going to the [facility] emergency department on Sunday08/03/2024 because she was very short of breath and having chest pressure. Her pulse ox was low in the 90s in her heart rate was elevated in the 90s to 100s. They did a CT scan--per the patient imaging was unremarkable. They did see a hiatal hernia but stated that it was not causing issues. She did complete a course of azithromycin and prednisone due to concerns for pneumonia. Over the last few days her heart rate has remained elevated and she has been very short of breath. Feels as though her stomach is in knots. She has a adjusted her food--only eating soft foods like yogurt, applesauce, and soups. She will still occasionally vomit this consistency of food. Waterdoes not seem to be causing any issues this time. Denies dysphagia or painful swallowing. She has alow appetite but no nausea. Occasional indigestion symptoms but generally rare. In addition to her GI symptoms she is having a lot of fatigue. She has noticed a change in her nailstrength and she feels very shaky and jittery. Upper thighs have numbness and tingling. Currently denies any abdominal discomfort/pain. No change in bowel habits. No history of jaundice. No fever, chills, cough, hematochezia, melena, or hemoptysis. She does have a hormonal IUD. Previous GI workup: KUB: n/a Colonoscopy: N/a EGD: 06/2021--Z-line regular, gastroesophageal flap valve classified as whole grade 2, normal stomach, normal duodenal bulb and 2nd portion of the duodenum. Mcfadden positive for acid reflux in distal esophagus Manometry: 07/2021-- Normal CTAP: 07/2024 at [facility] emergency department-- Unavailable for review Social history: Tobacco use: None ETOH use: None Marijuana use: Does have a medical marijuana card; rare use. Family Hx: No known family history of inflammatory bowel disease or GI malignancy. Current Outpatient Medications Medication Sig Dispense Refill Levonorgestrel 20 MCG/24HR Intrauterine Intrauterine Device Inserted on 02/25/15 1 Each 0 Probiotic Acidophilus BioBeads Oral Capsule Take 1 Cap by mouth at bedtime. Magnesium 400 MG Oral Capsule Take 1 Capsule by mouth at bedtime. Fluticasone Propionate 50 MCG/ACT Nasal Suspension (Flonase) SQUIRT 2 SPRAYS IN EACH NOSTRIL ONCE DAILY 1 Each 0 Metoprolol Succinate ER 25 MG Oral Tablet Extended Release 24 Hour (toPROL XL) Take 0.5 Tablets by mouth in the morning. 45 Tablet 3 Baclofen 20 MG Oral Tablet take 1 tablet by mouth at bedtime and 1/2 to 1 tablet up to three times a day if needed for HEAD AND NECK PAIN 120 Tablet 11 Aspirin Low Dose 81 MG Oral Tablet Delayed Release (aspirin enteric coated) take 1 tablet by mouth IN THE MORNING 90 Tablet 0 Cyanocobalamin 1000 MCG/ML Injection Solution (Cyanocobalamin) Inject 1 mL into a large muscle every 3 weeks. Omeprazole 40 MG Oral Capsule Delayed Release (PriLOSEC) Take 1 Capsule by mouth in the morning. 30Capsule 5 Sucralfate 1 GM Oral Tablet (Carafate) Take 1 Tablet by mouth in the morning and 1 Tablet at noon and 1 Tablet in the evening. Dissolve into a slurry. 120 Tablet 3 Ondansetron 4 MG Oral Tablet Disintegrating (Zofran) Place 1 Tablet on tongue every 8 hours as needed for Nausea. dissolve on tongue. 15 Tablet 3 Riboflavin 400 MG Oral Tablet Take 1 Tablet by mouth in the morning. (Patient not taking: Reported on 08/11/2024) Meclizine HCl 12.5 MG Oral Tablet (Antivert) Take 2 tablets by mouth up to three times a day as needed for being unbalanced (Patient not taking: Reported on 08/11/2024) 180 Tablet 11 predniSONE 20 MG Oral Tablet (Deltasone) Take 1 Tablet by mouth in the morning for 7 days. (Patientnot taking: Reported on 08/11/2024) 7 Tablet 0 No current facility-administered medications for this visit. Past Medical History: Diagnosis Date Migraine without aura using imitrex, failed maxalt Neuralgia Neuropathy Past Surgical History: Procedure Laterality Date DENTAL SURGERY PROCEDURE NEC widsom teeth removed as teenager EGD, FLEXIBLE, DIAGNOSTIC 02/13/2018 normal bx/ESOPHAGOGASTRODUODENOSCOPY (EGD), FLEXIBLE, TRANSORAL, DIAGNOSTIC performed by Koby Ingram MD at ENDOSCOPY [facility] EGD, FLEXIBLE, DIAGNOSTIC 08/06/2015 ESOPHAGOGASTRODUODENOSCOPY (EGD), FLEXIBLE, TRANSORAL, DIAGNOSTIC performed by Marcelle Lopez DO at ENDOSCOPY [facility] EGD, FLEXIBLE, DIAGNOSTIC 12/03/2020 normal bx / ESOPHAGOGASTRODUODENOSCOPY (EGD), FLEXIBLE, TRANSORAL, DIAGNOSTIC performed by Rama Garrison MD at ENDOSCOPY [facility] EGD, FLEXIBLE, DIAGNOSTIC N/A 07/01/2021 gstroesophageal flap valve classified as Hill Grade II/MCFADDEN pH capsule placed/EGD/MN EGD, W/ENDOSCOPIC US 08/06/2015 GB stones, pancreatic cyst, mild gastritis, repeat 1 yr EGD, W/ENDOSCOPIC US 08/06/2015 ESOPHAGOGASTRODUODENOSCOPY (EGD), FLEXIBLE, TRANSORAL, ENDOSCOPIC ULTRASOUND performed by Marcelle Lopez DO at ENDOSCOPY [facility] LAPAROSCOPY, CHOLECYSTECTOMY WITH CHOLANGIOGRAPHY N/A 08/31/2015 08/31/2015 LAPAROSCOPIC CHOLECYSTECTOMY WITH CHOLANGIOGRAM performed by Venkata Garsia MD at OR [facility] [place] PARATHYRDEC/EXPL PARATHYR MEDSTNL STERNAL/TTHRC Social History Tobacco Use Smoking status: Never Smokeless tobacco: Never Vaping Use Vaping status: Never Used Substance Use Topics Alcohol use: Yes Comment: very occ. Drug use: No Review of patient's allergies indicates: Allergen Reactions Metoclopramide Other reaction(s): MUSCLE SPASMS/TWITCHES Review of Systems: See HPI for pertinent positives. All others negative, other than those noted in HPI. Physical Exam: BP 111/54 | Pulse 69 | Temp 36.7 C (98.1 F) | Ht 1.689 m (5' 6.5") | Wt 103.6 kg (228 lb 6.4 oz) | BMI 36.31 kg/m | BSA 2.2 m GENERAL: Well developed and well nourished in no acute distress. SKIN: No rashes, ulcers, jaundice or spider angiomata. HEENT: Normocephalic, sclera clear, pharynx normal. NECK: Supple, no lymphadenopathy, no masses or thyroid enlargement. LUNGS: Clear to auscultation bilaterally, no respiratory distress or accessory muscles used. HEART: Regular rate & rhythm, no murmurs and no gallops. ABDOMEN: Normal bowel sounds, soft and nontender, no masses or hepatosplenomegaly. EXTREMITIES: No palmar erythema, no ankle edema, no skin discoloration, no clubbing, no cyanosis. NEURO: No lateralizing findings. Sensory/Motor grossly normal. Lab data/imaging study review: Reviewed via chart. Impression/Plan: This is a(n) 39 year old female who is being evaluated in the office for ongoing care/risk management for the below diagnoses. 1. Persistent vomiting (Primary) 2. Choking due to food (regurgitated), initial encounter 3. SOB (shortness of breath) Patient persistent vomiting regurgitated food times 7-10 days. Notable choking sensation More short of breath Blood work ordered today Chest x-ray to rule out aspiration pneumonia EGD to be completed TONIO. Depending on EGD results may also need to proceed with esophageal manometry, prior study in 2020 was unremarkable though. Recommend starting omeprazole 40 mg daily in the morning In addition will also start Carafate 1 g three times daily I also provided her with a prescription for dissolvable/sublingual Zofran 4 mg q.8 hours as needed I asked the patient to avoid cannabis products due to risk of cannabinoid hyperemesis syndrome. Continue with soft easy to digest diet and thin liquids. Patient was instructed that with any choking episodes or progressive shortness of breath she shouldpresent to the emergency department immediately. The patient agrees to the above plan and will call with additional questions or concerns. ER with all emergencies advised. Follow-up: Return in about 6 weeks (around 09/22/2024). | Check-out note: -Labs today -CXR today -EGD TONIO (within 2 weeks) I spent a total of Greater than 55 mins (exact time 60 mins) on the date of service in preparation,delivery, and documentation of the care provided to Alka Zambrano excluding any time spent inthe performance of separately billed services or time spent by another provider/QHP. BYRON Rutherford [facility] Gastroenterology, [facility] This chart was completed in part utilizing [employer] Speech Voice Recognition Software. Grammatical errors, random word insertions, prounoun errors, and incomplete sentences are an occasional consequence of this system due to software limitations, ambient noise, and hardware issues. Any formal questions or concerns about the content, text, or information contained within the body of this dictation should be directly addressed to the provider for clarification. documented in this encounter Nursing Notes * Nava Rod LPN - 08/11/2024 7:32 AM EST Chief Complaint Patient presents with NEW PATIENT Referred by Dr. Heard GERD Hiatal Hernia Pt reports that she has been throwing up for the past 7-10 days. Stomach is very uncomfortable. Shehas tried to adjust her diet, but nothing helps. documented in this encounter Plan of Treatment Upcoming Encounters Date Type Department Care Team (Latest Contact Info) Description 4 8:50 AM EST Laboratory Laboratory, [facility] [address] [place] [phone] [facility] [address] [place] [address] Persistent vomiting; Choking due to food (regurgitated), initial encounter; SOB (shortness of breath); Hiatal hernia 4 3:00 PM EST Imaging Radiology [facility] 1st [facility] [address] [place] [address] 4 1:30 PM EST Hospital Encounter ENDO [facility], Endoscopy Room [facility] [address] [place] [phone] Jesenia Aguilar DO [address] [place] [address] 4 1:30 PM EST - 4 2:00 PM EST Surgery ENDO [facility], Endoscopy Room [facility] [address] [place] [address] Jesenia Aguilar DO [address] [place] [address] ESOPHAGOGASTRODUODENOSCOPY (EGD), FLEXIBLE, TRANSORAL, DIAGNOSTIC 4 8:30 AM EST Office Visit Gastroenterolog y, [facility] [address] [facility] [place] [address] Jesenia Ariza CRNP [address] [place] [address] 4 2:20 PM EST Telemedicine Neurology [address] [place] [address] Celina Sexton MD [address] [facility] [place] [address] 4 8:00 AM EST Office Visit Family Practice [facility] [address] [facility] [place] [address] Lin Alanis CRNP [address] [place] [address] 4 8:00 AM EST Telemedicine Endocrinology, [place] [address] [place] [id number] Earl Prado MD [address] [address] 5 8:00 AM EST Office Visit Cardiology, [facility] 132 [facility] [place] [address] Debbie Huertas CRNP [address] [place] [address] 5 3:00 PM EST Office Visit Sleep Disorders Ctr [facility] [address] [place] [phone] Destini Heard DO [address] [place] [address] 5 2:00 PM EST Office Visit Gastroenterolog y, [facility] [address] [facility] [place] [address] Jesenia Ariza CRNP [address] [place] [address] Pending Results Name Type Priority Associated Diagnoses Date /Time XR CHEST 2 VIEWS Medical Imaging STAT Persistent vomiting Choking due to food (regurgitated), initial encounter SOB (shortness of breath) Hiatal hernia 08/11/2024 8:20 AM EST VITAMIN B12 Lab Routine Persistent vomiting Choking [...] Hiatal hernia 08/11/2024 8:24 AM EST Scheduled Orders Name Type Priority Associated Diagnoses Orde r Schedule VITAMIN B12 Lab Routine Persistent vomiting Choking due to food (regurgitated), initial encounter SOB (shortness of breath) Hiatal hernia Expected: 08/11/2024, Expires: 08/11/2025 MAGNESIUM Lab Routine Persistent vomiting Choking due to food (regurgitated), initial encounter SOB (shortness of breath) Hiatal hernia Expected: 08/11/2024, Expires: 08/11/2025 CBC WITH WBC DIFFERENTIAL Lab Routine Persistent vomiting Choking due to food (regurgitated), initial encounter SOB (shortness of breath) Hiatal hernia Expected: 08/11/2024, Expires: 08/11/2025 FERRITIN Lab Routine Persistent vomiting Choking due to food (regurgitated), initial encounter SOB (shortness of breath) Hiatal hernia Expected: 08/11/2024, Expires: 08/11/2025 EGD, FLEXIBLE, DIAGNOSTIC Procedures Routine Persistent vomiting Choking due to food (regurgitated), initial encounter SOB (shortness of breath) Hiatal hernia Ordered: 08/11/2024 BASIC METABOLIC PANEL Lab Routine Persistent vomiting Choking due to food (regurgitated), initial encounter SOB (shortness of breath) Hiatal hernia Expected: 08/11/2024, Expires: 08/11/2025 Scheduled Procedures Name Priority Associated Diagnoses Date/Ti [...] of this encounter Visit Diagnoses Diagnosis Persistent vomiting- Primary Choking due to food (regurgitated), initial encounter SOB (shortness of breath) Shortness of breath Hiatal hernia Diaphragmatic hernia without mention of obstruction or gangrene Persistent vomiting Choking due to food (regurgitated), initial encounter SOB (shortness of breath) Shortness of breath Hiatal hernia Diaphragmatic hernia without mention of obstruction or gangrene Nausea and vomiting Nausea with vomiting documented in this encounter Care Teams Metal Weather Stripper Relationship Specialty Start Date End Date Naveen Heard DO [address] [place] [address] PCP - General Family Medicine 09/20/20 documented as of this encounter
--- OUTSIDE RECORDS SUMMARY | 2024-08-21 02:46 | External Medical Summary | Summary of Care ---
Author Name Unknown Organization [facility] Address [address] [place] [address] Phone [phone] Care Team Providers Care Machine Tester Name Role Phone Naveen Heard Mukeshsamson Primary [...] 08/11/2024 7:30 AM EST Office Visit Gastroenterology, [facility] [place] [address] Jesenia Ariza CRNP 132 [facility] [place] [address] Persistent vomiting*; Choking due to food (regurgitated), [...] Problem Noted Date Diagnosed Date Resolved Date [place] eye 07/16/2015 09/29/2020 Antepartum abnormal glucose tolerance [...] 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 She ended up going to the [facility] emergency department on Sunday08/03/2024 because she was [...] esophagus Manometry: 07/2021-- Normal CTAP: 07/2024 at [facility] emergency department-- Unavailable for review Social history: [...] performed by Koby Ingram MD at ENDOSCOPY [facility] EGD, FLEXIBLE, DIAGNOSTIC 08/06/2015 ESOPHAGOGASTRODUODENOSCOPY (EGD), FLEXIBLE, TRANSORAL, DIAGNOSTIC performed by Marcelle Lopez DO at ENDOSCOPY [facility] EGD, FLEXIBLE, DIAGNOSTIC 12/03/2020 normal bx / ESOPHAGOGASTRODUODENOSCOPY (EGD), FLEXIBLE, TRANSORAL, DIAGNOSTIC performed by Rama Garrison MD at ENDOSCOPY [facility] EGD, FLEXIBLE, DIAGNOSTIC N/A 07/01/2021 gstroesophageal flap valve classified as Hill Grade II/MCFADDEN pH capsule placed/EGD/MN EGD, W/ENDOSCOPIC US 08/06/2015 GB stones, pancreatic cyst, mild gastritis, repeat 1 yr EGD, W/ENDOSCOPIC US 08/06/2015 ESOPHAGOGASTRODUODENOSCOPY (EGD), FLEXIBLE, TRANSORAL, ENDOSCOPIC ULTRASOUND performed by Marcelle Lopez DO at ENDOSCOPY [facility] LAPAROSCOPY, CHOLECYSTECTOMY WITH CHOLANGIOGRAPHY N/A 08/31/2015 08/31/2015 LAPAROSCOPIC CHOLECYSTECTOMY WITH CHOLANGIOGRAM performed by Venkata Garsia MD at OR [facility] [place] PARATHYRDEC/EXPL PARATHYR MEDSTNL STERNAL/TTHRC Social History Tobacco [...] time spent by another provider/QHP. BYRON Rutherford [facility] Gastroenterology, [facility] This chart was completed in part utilizing [employer] Speech Voice Recognition Software. Grammatical errors, random [...] Department Care Team (Latest Contact Info) Description 8:20 AM EST Imaging Radiology [facility] 1st [facility] [address] [place] [address] Arrived 8:50 AM EST Laboratory Laboratory, [facility] [address] [place] [phone] [facility] [address] [place] [address] 4 1:30 PM EST Hospital Encounter ENDO [facility], Endoscopy Room [facility] [address] [place] [phone] Jesenia Aguilar DO [address] [place] [address] 4 1:30 PM EST - 4 2:00 PM EST Surgery ENDO [facility], Endoscopy Room [facility] [address] [place] [phone] Jesenia Aguilar DO [address] [place] [address] ESOPHAGOGASTRODUODENOSCOPY (EGD), FLEXIBLE, TRANSORAL, DIAGNOSTIC 4 3:00 PM EST Imaging Radiology [address] [place] [address] 4 8:30 AM EST Office Visit Gastroenterolog y, [facility] [address] [facility] [place] [address] Jesenia Ariza CRNP [address] [place] [address] 4 2:20 PM EST Telemedicine Neurology [address] [place] [address] Celina Sexton MD [address] [facility] [place] [id number] 4 8:00 AM EST Office Visit Family Practice [facility] [address] [facility] [place] [address] Lin Alanis CRNP 132 [facility] [place] [address] 4 8:00 AM EST Telemedicine Endocrinology, [place] [address] [place] [address] Earl Prado MD [address] [address] 5 8:00 AM EST Office Visit Cardiology, [facility] [address] [facility] [place] [address] Debbie Huertas CRNP [facility] [place] [address] 5 3:00 PM EST Office Visit Sleep Disorders Ctr [facility] [address] [place] [phone] Destini Heard DO [address] [place] [address] 5 2:00 PM EST Office Visit Gastroenterolog y, [facility] [address] [place] [address] Jesenia Ariza CRNP [address] [place] [address] Pending Results Name Type Priority Associated Diagnoses Date /Time XR CHEST 2 VIEWS Medical Imaging STAT Persistent vomiting Choking due to food (regurgitated), initial encounter SOB (shortness of breath) Hiatal hernia 08/11/2024 8:15 AM EST Scheduled Orders Name Type Priority [...] EGD), FLEXIBLE, TRANSORAL, DIAGNOSTIC Nausea and vomiting 08/12/2024 1:30 PM EST Health Maintenance Due Date Last Done Comments Hepatitis B Vaccine (1 of 3 - 19+ 3-dose series) 2005 HPV/Co-Test 2016 COVID-19 Vaccine ( season) 2024 Influenza Vaccine (FLU shot) (#1) 2024 Cervical Cancer Screening 10/20/2024 Pap Smear 10/20/2024 10/20/2021, 07/11/2017, 10/03/2013, Additional history exists DTap/Tdap Vaccines (3 - Td or Tdap) 11/04/2024 11/04/2014, 02/27/2010 Depression Screening 07/31/2025 07/31/2024 IUD 7-Year 03/04/2027 03/04/2020 Diabetes Screening 07/31/2027 07/31/2024, 1 09/30/2023, 06/14/2023, Additional history exists HPV (Gardasil) Vaccine Completed , 12/18/1995, 10/18/1995 MENINGOCOCCAL (MENACTRA/MENVEO) Aged Out No [...] vomiting documented in this encounter Care Teams Machine Tester Relationship Specialty Start Date End Date Naveen Heard DO [address] [place] [address] PCP - General Family Medicine 09/20/20 documented as of this encounter
--- OUTSIDE RECORDS SUMMARY | 2024-08-21 02:47 | External Medical Summary | Summary of Care ---
Author Name Unknown Organization [facility] Address [address] [place] [address] Phone [phone] Care Team Providers Care Wire Inserter Name Role Phone Naveen Heard DO Primary Care Provider Reason for Visit * Reason Onset Date Comments Order Request 08/05/2024 Encounter Details Date Type Department Care Team (Late st Contact Info) Description 08/05/2024 Telephone Family Practice [facility] [address] [place] [address] Naveen Heard DO [address] [place] [address] Order Request Allergies Active Allergy Reactions Criticality Noted Date Comments Metoclopramide 05/25/2022 Other reaction(s): MUSCLE SPASMS/TWITCHES documented as of this encounter (statuses as of 08/08/2024) Medications Levonorgestrel 20 MCG/24HR Intrauterine Intrauterine Device Inserted on 02/25/15 1 Each 0 5 Active Probiotic Acidophilus BioBeads Oral Capsule Take [...] as needed for being unbalanced 180 Tablet 2 Active Additional Information Patient not taking.Reported on 07/31/2024 Fluticasone Propionate 50 MCG/ACT Nasal Suspension (Flonase)Indicat ions:Acute non-recurrent frontal sinusitis SQUIRT 2 SPRAYS IN EACH NOSTRIL ONCE DAILY 1 Each 3 Active Additional Information Patient not taking.Reported on 07/31/2024 Metoprolol Succinate ER 25 MG Oral Tablet Extended Release 24 Hour (toPROL XL)Indications:P alpitations,SVT (supraventricula r tachycardia) (HCC),Tachycardi a Take 0.5 Tablets by mouth in the morning. 45 Tablet 3 3 Active Baclofen 20 MG Oral TabletIndication s:Bilateral occipital neuralgia,Lighth eadedness,Depers onalization syndrome (HCC) take 1 tablet by mouth at bedtime and 1/2 to 1 tablet up to three times a day if needed for HEAD AND NECK PAIN 120 Tablet 11 4 Active Aspirin Low Dose 81 MG Oral Tablet Delayed Release (aspirin enteric coated)Indicatio ns:Dizziness take 1 tablet by mouth IN THE MORNING 90 Tablet 4 Active predniSONE 20 MG Oral Tablet (Deltasone)Indic ations:Acute cough Take 1 Tablet by mouth in the morning for 7 days. 7 Tablet 4 024 Active Azithromycin 250 MG Oral Tablet (Zithromax) Take 2 tabs by mouth on the first day, then 1 tab daily on days two through five 6 Tablet 4 024 documented as of this encounter (statuses as of 08/08/2024) Active Problems Problem Noted Date Diagnosed Date [...] as of this encounter (statuses as of 08/08/2024) Resolved Problems Problem Noted Date Diagnosed Date Resolved Date [place] eye 07/16/2015 09/29/2020 Antepartum abnormal glucose tolerance [...] as of this encounter (statuses as of 08/08/2024) Immunizations Name Administration Dates Next Due HPV Vaccine, 4-Valent 05/18/1996,12/18/1995,020 09/1995 TDAP, Age 7 and older, IM (Adacel) [...] 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 Thank You * Telephone Encounter - Deb Rolle OSA - 08/05/2024 4:09 PM EST Does she need another appt ? * Telephone Encounter - Kristen Bateman OSA - 08/05/2024 4:03 PM EST Pt states she finished anti biotic and is requesting another antibiotic or a breathing treatment. Pt still has symptoms of pneumonia. documented in this encounter Plan of Treatment Upcoming Encounters Date Type Department Care Team (Late st Contact Info) Description 08/11/2024 7:30 AM EST Office Visit Gastroenterology, [facility] 132 [facility] [place] [address] Jesenia Ariza CRNP 132 [facility] [place] [address] 08/19/2024 3:00 PM EST Imaging Radiology [facility] 1st [facility] 132 [facility] [place] [address] 08/26/2024 8:30 AM EST Office Visit Gastroenterology, [facility] 132 [facility] [place] [address] Jesenia Ariza CRNP 132 [facility] [place] [address] 09/01/2024 2:20 PM EST Telemedicine Neurology [address] [place] [phone] Celina Sexton MD [address] [facility] [place] [address] 09/05/2024 8:00 AM EST Office Visit Family Practice [facility] 132 [facility] [place] [address] Lin Alanis CRNP [address] [place] [address] 09/12/2024 8:00 AM EST Telemedicine Endocrinology, [place] [address] [place] [address] Earl Prado MD [address] [facility] [address] [place] [address] 09/24/2024 8:00 AM EST Office Visit Cardiology, [facility] [address] [place] [address] Debbie Huertas CRNP [address] [place] [address] 09/30/2024 3:00 PM EST Office Visit Sleep Disorders Ctr [facility] [address] [place] [phone] Destini Heard DO [address] [place] [address] Health Maintenance Due Date Last Done Comments Hepatitis B Vaccine (1 of 3 - 19+ 3-dose series) 2005 HPV/Co-Test 2016 COVID-19 Vaccine (2023- season) 2024 Influenza Vaccine (FLU shot) (#1) [...] Not on filedocumented as of this encounter Care Teams Wire Inserter Relationship Specialty Start Date End Date Naveen Heard DO [address] [place] [address] PCP - General Family Medicine 09/20/20 documented as of this encounter
--- OUTSIDE RECORDS SUMMARY | 2024-08-21 02:47 | External Medical Summary ---
Author Name Unknown Address Unknown Organization [id number] [facility] [address] [place] [address] Laboratory Report Ordering Provider Test Date Status BRADEN HE 08/11/2024 08:24:11 Final Observation Date Value Abnormality Reference (Units ) Status WBC, Total 08/11/2024 08:24:11 10.89 Above high normal 4 .00-10.80 (K/uL) Final RBC 08/11/2024 08:24:11 5.13 3.85-5.15 (M/uL) Final Hemoglobin 08/11/2024 08:24:11 15.0 12.0-15.3 (g/dL) Final HCT 08/11/2024 08:24:11 45.9 Above high normal 36 .0-45.2 (%) Final MCV 08/11/2024 08:24:11 89.5 81.5-97.5 (fL) Final MCH 08/11/2024 08:24:11 29.2 27.0-34.0 (pg) Final MCHC 08/11/2024 08:24:11 32.7 32.0-36.0 (g/dL) Final RDW 08/11/2024 08:24:11 13.6 11.5-15.5 (%) Final Platelets 08/11/2024 08:24:11 317 140-400 (K /uL) Final MPV 08/11/2024 08:24:11 9.5 6.6-11.1 ( fL) Final Performing Location [facility] [place] [address]
--- OUTSIDE RECORDS SUMMARY | 2024-08-21 02:47 | External Medical Summary | Summary of Care ---
Author Name Unknown Organization [facility] Address [address] [place] [address] Phone [phone] Care Team Providers Care Technical Service Specialist Name Role Phone Naveen Heard DO Primary Care Provider Reason for Visit * Reason Onset Date Comments Order Request 08/05/2024 Encounter Details Date Type Department Care Team (Late st Contact Info) Description 08/05/2024 Telephone Family Practice [facility] [address] [place] [address] Naveen Heard DO [address] [place] [address] Order Request Allergies Active Allergy Reactions Criticality Noted Date Comments Metoclopramide 05/25/2022 Other reaction(s): MUSCLE SPASMS/TWITCHES documented as of this encounter (statuses as of 08/06/2024) Medications Levonorgestrel 20 MCG/24HR Intrauterine Intrauterine Device [...] as of this encounter (statuses as of 08/06/2024) Active Problems Problem Noted Date Diagnosed Date [...] as of this encounter (statuses as of 08/06/2024) Resolved Problems Problem Noted Date Diagnosed Date Resolved Date [place] eye 07/16/2015 09/29/2020 Antepartum abnormal glucose tolerance [...] as of this encounter (statuses as of 08/06/2024) Immunizations Name Administration Dates Next Due HPV [...] 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 Not [...] Care Team (Late st Contact Info) Description 08/07/2024 8:40 AM EST Telemedicine Neurology [address] [place] [phone] Celina Sexton MD [address] [facility] [place] [address] 08/11/2024 7:30 AM EST Office Visit Gastroenterology, [facility] 132 [facility] [place] [address] Jesenia Ariza CRNP [address] [place] [address] 08/19/2024 3:00 PM EST Imaging Radiology [facility] 1st Floor, [place] 132 [facility] [place] [address] 08/26/2024 8:30 AM EST Office Visit Gastroenterology, [facility] 132 [facility] [place] [address] Jesenia Ariza CRNP [address] [place] [address] 09/05/2024 8:00 AM EST Office Visit [facility] Practice [facility] [place] [address] Lin Alanis CRNP [address] [place] [address] 09/12/2024 8:00 AM EST Telemedicine Endocrinology, [place] [address] [place] [address] Earl Prado MD [address] [place] [address] [place] [address] 09/24/2024 8:00 AM EST Office Visit Cardiology, [facility] [address] [place] [address] Debbie Huertas CRNP [address] [place] [address] 09/30/2024 3:00 PM EST Office Visit Sleep Disorders Ctr [facility] [address] [place] [phone] Destini Heard DO [address] [place] [address] Health Maintenance Due Date Last Done Comments [...] filedocumented as of this encounter Care Teams Technical Service Specialist Relationship Specialty Start Date End Date Naveen Heard DO [address] [place] [address] PCP - General Family Medicine 09/20/20 documented as of this encounter
--- OUTSIDE RECORDS SUMMARY | 2024-08-21 02:47 | External Medical Summary | Summary of Care ---
Author Name Unknown Organization [facility] Address [address] [place] [address] Phone [phone] Care Team Providers Care Inspector Government Property Name Role Phone Naveen Heard DO Primary Care Provider Reason for Visit * Reason Onset Date Comments Order Request 08/05/2024 Encounter Details Date Type Department Care Team (Late st Contact Info) Description 08/05/2024 Telephone Family Practice 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 132 [facility] [place] [address] Jesenia Ariza CRNP 132 [facility] [place] [address] 08/19/2024 3:00 PM EST Imaging Radiology [facility] [address] [facility] 132 [facility] [place] [address] 08/26/2024 8:30 AM EST Office Visit Gastroenterology, [facility] 132 [facility] [place] [address] eJsenia Ariza CRNP [address] [place] [address] 09/05/2024 8:00 AM EST Office Visit Family Practice [facility] 132 [facility] [place] [address] Lin Alanis CRNP [address] [place] [address] 09/12/2024 8:00 AM EST Telemedicine Endocrinology, [place] [address] [facility] [place] [address] Earl Prado MD [address] [address] 09/24/2024 8:00 AM EST Office Visit Cardiology, [facility] [address] [place] [address] Debbie Huertas CRNP [address] [place] [address] 09/30/2024 3:00 PM EST [facility] [address] [place] [phone] Destini Heard DO [address] [place] [address] Health Maintenance Due Date Last Done Comments [...] filedocumented as of this encounter Care Teams Inspector Government Property Relationship Specialty Start Date End Date Naveen Heard DO [address] [place] [address] PCP - General Family Medicine 09/20/20 documented as of this encounter
--- OUTSIDE RECORDS SUMMARY | 2024-08-21 02:47 | External Medical Summary | Summary of Care ---
Author Name Unknown Organization [facility] Address [address] [place] [address] Phone [phone] Care Team Providers Care Line Therapist Name Role Phone Naveen Heard DO Primary Care Provider Encounter Details Date Type Department Care Team (Late st Contact Info) Description 08/03/2024 Result Scan Unspecified Department <No scans attached> Allergies Active Allergy Reactions Criticality Noted Date Comments Metoclopramide 05/25/2022 Other reaction(s): MUSCLE SPASMS/TWITCHES documented as of this encounter (statuses as of 08/05/2024) Medications Levonorgestrel 20 MCG/24HR Intrauterine Intrauterine Device [...] needed for being unbalanced 180 Tablet 11 2 Active Additional Information Patient not taking.Reported [...] IN THE MORNING 90 Tablet 4 Active Azithromycin 250 MG Oral Tablet (Zithromax) Take 2 tabs by mouth on the first day, then 1 tab daily on days two through five 6 Tablet 4 08/05/20 24 Active documented as of this encounter (statuses as of 08/05/2024) Active Problems Problem Noted Date Diagnosed Date [...] as of this encounter (statuses as of 08/05/2024) Resolved Problems Problem Noted Date Diagnosed Date Resolved Date [place] eye 07/16/2015 09/29/2020 Antepartum abnormal glucose tolerance [...] as of this encounter (statuses as of 08/05/2024) Immunizations Name Administration Dates Next Due HPV [...] 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 on file documented as of this encounter Plan of Treatment Upcoming Encounters Date Type Department Care Team (Late st Contact Info) Description 08/07/2024 8:40 AM EST Telemedicine Neurology [address] [place] [phone] Celina Sexton MD [address] [facility] [place] [address] 08/19/2024 3:00 PM EST Imaging Radiology [facility] 1st [facility] 132 [facility] [place] [address] 08/26/2024 8:30 AM EST Office Visit Gastroenterology, [facility] 132 [facility] [place] [address] Jesenia Ariza CRNP 132 [facility] [place] [address] 09/05/2024 8:00 AM EST Office Visit Family Practice [facility] [address] [place] [address] Lin Alanis CRNP [address] [place] [address] 09/12/2024 8:00 AM EST Telemedicine Endocrinology, [place] [address] [facility] [place] [address] Earl Prado MD [address] [facility] [address] [place] [address] 09/24/2024 8:00 AM EST Office Visit Cardiology, [facility] [address] [facility] [place] [address] Debbie Huertas CRNP [address] [place] [address] 09/30/2024 3:00 PM EST Office Visit Sleep Disorders Ctr [facility] [address] [place] [phone] Destini Heard DO [address] [place] [address] Health Maintenance Due Date Last Done Comments [...] Not on filedocumented as of this encounter Procedures Procedure Name Priority Date/Time Associated Diagnosis Comments RADIOLOGY SCANNED RESULT 08/03/2024 documented in this encounter Results * RADIOLOGY SCANNED RESULT (08/03/2024) 08/03/2024 us No Physician Data Unknown DIAGNOSTIC RADIOLOGY S ERVICES Final Result documented in this encounter Care Teams Line Therapist Relationship Specialty Start Date End Date Naveen Heard DO [address] [place] [address] PCP - General Family Medicine 09/20/20 documented as of this encounter
--- OUTSIDE RECORDS SUMMARY | 2024-08-21 02:47 | External Medical Summary | Summary of Care ---
Author Name Unknown Organization [facility] Address [address] [place] [address] Phone [phone] Care Team Providers Care Molecular Biologist Name Role Phone Naveen Heard DO Primary Care Provider Reason for Visit * Reason Onset Date Comments Order Request 08/05/2024 Encounter Details Date Type Department Care Team (Late st Contact Info) Description 08/05/2024 Telephone Family Practice [facility] [address] [place] [address] Naveen Heard DO [address] [place] [address] Order Request Allergies Active Allergy Reactions Criticality [...] five 6 Tablet 4 08/05/20 24 Active predniSONE 20 MG Oral Tablet (Deltasone)Indic ations:Acute cough Take 1 Tablet by mouth in the morning for 7 days. 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 Not on file documented as of this encounter Miscellaneous Notes * Telephone Encounter - Deb Rolle OSA [...] [address] [place] [phone] Celina Sexton MD [address] [facility] [place] [address] 08/11/2024 7:30 AM EST Office Visit Gastroenterology, [facility] 132 [facility] [place] [address] Jesenia Ariza CRNP [address] [place] [address] 08/19/2024 3:00 PM EST Imaging [facility] 132 [facility] [place] [address] 08/26/2024 8:30 AM EST Office Visit Gastroenterology, [facility] 132 [facility] [place] [address] Jesenia Ariza CRNP 132 [facility] [place] [address] 09/05/2024 8:00 AM EST Office Visit Family Practice [facility] 132 [facility] [place] [address] Lin Alanis CRNP 132 [facility] [place] [address] 09/12/2024 8:00 AM EST Telemedicine Endocrinology, [place] [address] [place] [address] Earl Prado MD [address] [address] 09/24/2024 8:00 AM EST Office Visit Cardiology, [facility] 132 [facility] [place] [address] Debbie [facility]as CRNP [facility] [place] [address] 09/30/2024 3:00 PM EST Office Visit Sleep Disorders Ctr [facility] [address] [place] [phone] Destini Heard DO [address] [place] [address] Health Maintenance Due Date Last Done Comments [...] filedocumented as of this encounter Care Teams Molecular Biologist Relationship Specialty Start Date End Date Naveen Heard DO [address] [place] [place] [address] PCP - General Family Medicine 09/20/20 documented as of this encounter
--- OUTSIDE RECORDS SUMMARY | 2024-08-21 02:47 | External Medical Summary | Summary of Care ---
Author Name Unknown Organization [facility] Address [address] [place] [address] Phone [phone] Care Team Providers Care Metal Moulder'S Assistant Name Role Phone Naveen Heard DO Primary Care Provider Encounter Details Date Type Department Care Team (Late st Contact Info) Description 08/07/2024 8:40 AM EST Telemedicine Neurology [facility] [place] [address] [place] [address] Celina Sexton MD [address] [place] [address] Intractable chronic migraine without aura and without status migrainosus* Allergies Active Allergy Reactions Criticality Noted Date Comments Metoclopramide 05/25/2022 Other reaction(s): MUSCLE SPASMS/TWITCHES documented as of this encounter (statuses as of 08/07/2024) Medications Levonorgestrel 20 MCG/24HR Intrauterine Intrauterine Device [...] as of this encounter (statuses as of 08/07/2024) Active Problems Problem Noted Date Diagnosed Date [...] as of this encounter (statuses as of 08/07/2024) Resolved Problems Problem Noted Date Diagnosed Date Resolved Date [place] eye 07/16/2015 09/29/2020 Antepartum abnormal glucose tolerance [...] as of this encounter (statuses as of 08/07/2024) Immunizations Name Administration Dates Next Due HPV [...] 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 Zambrano is a 39 year old right handed female who was initially referred for consultation by Naveen Heard DO for her headache. I left a message apologizing for keeping her waiting and asking her to get back in touch. Last Visit: Date: 07-21-22 with Celina Sexton MD (provider) Ms. Zambrano is a 37 year old right handed female who has been referred for consutlation by Nikolay Heard DO for her headache. By history, her headaches meets criteria for (G43.009) Migraine without aura and without status migrainosus, not intractable (primary encounter diagnosis) (M54.81) Bilateral occipital neuralgia She does not have hemiplegic migraine - she most likely has occipital neuralgia with autonomic features - hemiplegic migraine always has aura (usually multiple) and also has migraine features - she denies N/V, photophobia and phonophobia Preventive: Start Botox; Continue baclofen, Mg, B2 Abortive: Naratriptan (Amerge) 2.5 mg at start of headache, may repeat once at 2 hours; if the headpain is more than mild, can combine with naproxen sodium 550 mg at start of headache, may repeat after 12 hours. If having problems sleeping with the headache, can add Benadryl 25 mg to the mix at bedtime. Can use this combination up to two days a week. End Last Visit Current Outpatient Medications Medication Sig Dispense Refill Levonorgestrel 20 MCG/24HR Intrauterine Intrauterine Device Inserted on 02/25/15 1 Each 0 Probiotic Acidophilus BioBeads Oral Capsule Take 1 Cap by mouth at bedtime. Magnesium 400 MG Oral Capsule Take 1 Capsule by mouth at bedtime. Riboflavin 400 MG Oral Tablet Take 1 Tablet by mouth in the morning. Meclizine HCl 12.5 MG Oral Tablet (Antivert) Take 2 tablets by mouth up to three times a day as needed for being unbalanced (Patient not taking: Reported on 07/31/2024) 180 Tablet 11 Fluticasone Propionate 50 MCG/ACT Nasal Suspension (Flonase) SQUIRT 2 SPRAYS IN EACH NOSTRIL ONCE DAILY (Patient not taking: Reported on 07/31/2024) 1 Each 0 Metoprolol Succinate ER 25 [...] mouth IN THE MORNING 90 Tablet 0 predniSONE 20 MG Oral Tablet (Deltasone) Take 1 Tablet by mouth in the morning for 7 days. 7 Tablet0 No current facility-administered medications for this visit. Past Medical History: Diagnosis Date Migraine without aura using imitrex, failed maxalt Review of patient's allergies indicates: Allergen Reactions Metoclopramide Other reaction(s): MUSCLE SPASMS/TWITCHES Celina Sexton MD 08/07/2024 9:06 AM documented in this encounter Plan of Treatment Upcoming Encounters Date Type Department Care Team (Late st Contact Info) Description 08/11/2024 7:30 AM EST Office Visit Gastroenterology, [facility] [address] [facility] [place] [address] Jesenia Ariza CRNP 132 [facility] [place] [address] 08/19/2024 3:00 PM EST [facility] [address] [facility] [place] [address] 08/26/2024 8:30 AM EST Office Visit Gastroenterology, [facility] [address] [facility] [place] [address] Jesenia Ariza CRNP 132 [facility] [place] [address] 09/01/2024 2:20 PM EST Telemedicine Neurology [place] [address] [place] [phone] Celina Sexton MD [address] [facility] [place] [address] 09/05/2024 8:00 AM EST Office Visit Family Practice [facility] [address] [facility] [place] [address] Lin Alanis CRNP [address] [facility] [place] [address] 09/12/2024 8:00 AM EST Telemedicine Endocrinology, [facility] [address] [place] [phone] Earl Prado MD [address] [address] 09/24/2024 8:00 AM EST Office Visit Cardiology, [facility] [address] [place] [address] Debbie Huertas CRNP [address] [place] [address] 09/30/2024 3:00 PM EST Office Visit Sleep Disorders Ctr [facility] [address] [place] [phone] Destini Heard DO [address] [place] [address] Health Maintenance Due Date Last Done Comments [...] as of this encounter Visit Diagnoses Diagnosis Intractable chronic migraine without aura and without status migrainosus- Primary Chronic migraine without aura, with intractable migraine, so stated, without mention of status migrainosus documented in this encounter Care Teams Metal Moulder'S Assistant Relationship Specialty Start Date End Date Naveen Heard DO [address] [place] [address] PCP - General Family Medicine 09/20/20 documented as of this encounter
--- OUTSIDE RECORDS SUMMARY | 2024-08-21 02:47 | External Medical Summary ---
Author Name Unknown Address Unknown Organization K01:[facility] - [address] [facility] [place] [address] Laboratory Report Ordering Provider Test Date Status BRADEN HE 08/11/2024 08:24:11 Final Observation Date Value Abnormality Reference (Units ) Status Ferritin 08/11/2024 08:24:11 116 13-150 (ng /mL) Final Performing Location [facility] - [address] [place] [address]
--- OUTSIDE RECORDS SUMMARY | 2024-08-21 02:48 | External Medical Summary | Summary of Care ---
Author Name Unknown Organization [facility] Address [address] [place] [address] Phone [phone] Care Team Providers Care Clay Dry Press Operator Name Role Phone Naveen Heard DO Primary Care Provider Reason for Referral * Evaluate & Treat - Unlimited Visits (Within 3 days (urgent)) - Authorized Specialty Diagnoses / Procedures Referred By Avila sigala Referred To Contact Gastroenterology Diagnoses Hiatal hernia Gastroesophageal reflux disease with esophagitis without hemorrhage Naveen Heard DO [address] [place] [address] Phone: tel: fax: David Huang MD [address] [place] [address] Phone: tel: fax: Referral ID Status Reason Start Date Expiration Date Visits Requested Visits Authorized [id number] Authorized Specialty Services Required 4 999 999 Question Answer Referral Priority Within 3 days (urgent) Where should this appointment be scheduled? [facility] For what condition is the patient being referred? All Gastro Conditions * Evaluate & Treat - Unlimited Visits (Within 10 days (routine)) - Authorized Specialty Diagnoses / Procedures Referred By Avila sigala Referred To Contact Sleep Medicine / Sleep Disorders Diagnoses Malaise and fatigue Snoring Naveen Heard DO [address] [place] [address] Phone: tel: fax: Referral ID Status Reason Start Date Expiration Date Visits Requested Visits Authorized [id number] Authorized Specialty Services Required 4 2 2 Question Answer Referral Priority Within 10 days (routine) Where should this appointment be scheduled? [facility] ADULT [facility]FERR[facility] Sleep Apnea Testing and Management Does the patient snore and/or gasp at night or has been told they stop breathing at night? Yes, document patient's symptoms in progress note Reason for Visit * Reason Comments Return Visit Pt here for return c heck, no specific concerns noted. Encounter Details Date Type Department Care Team (Late st Contact Info) Description 07/31/2024 3:40 PM EST Office Visit [facility] [address] [place] [address] Naveen Heard DO [address] [place] [address] Hyperparathyroidism, primary (HCC)*; Myofascial pain syndrome; Acute maxillary sinusitis, recurrence not specified; Low iron stores; Malaise and fatigue; Snoring; Nail brittleness; Elevated fasting glucose; Hiatal hernia; Gastroesophageal reflux disease with esophagitis without hemorrhage; Encounter for screening mammogram for breast cancer Allergies Active Allergy Reactions Criticality Noted Date Comments Metoclopramide 05/25/2022 Other reaction(s): MUSCLE SPASMS/TWITCHES documented as of this encounter (statuses as of 07/31/2024) Medications Levonorgestrel 20 MCG/24HR Intrauterine Intrauterine Device [...] as needed for being unbalanced 180 Tablet 04/14/20 22 Active Additional Information Patient not taking.Reported on 07/31/2024 Fluticasone Propionate 50 MCG/ACT Nasal Suspension (Flonase)Indicat ions:Acute non-recurrent frontal sinusitis SQUIRT 2 SPRAYS IN EACH NOSTRIL ONCE DAILY 1 Each 11/13/19 23 Active Additional Information Patient not taking.Reported on 07/31/2024 Metoprolol Succinate ER 25 MG Oral Tablet Extended Release 24 Hour (toPROL XL)Indications:P alpitations,SVT (supraventricula r tachycardia) ([facility]),Tachycardi a Take 0.5 Tablets by mouth in the morning. 45 Tablet 3 09/12/20 23 Active Baclofen 20 MG Oral TabletIndication s:Bilateral [...] THE MORNING 90 Tablet 07/24/20 24 Active Azithromycin 250 MG Oral Tablet (Zithromax) Take 2 tabs by mouth on the first day, then 1 tab daily on days two through five 6 Tablet 07/31/20 24 Active Multivitamin Adult Oral Tablet Take by mouth. Discontin ued(Medic ation List Clean Up) Naratriptan HCl 2.5 MG Oral Tablet (Amerge) naratriptan 2.5 mg tablet Discontin ued(Medic ation List Clean Up) Celecoxib 200 MG Oral Capsule (CeleBREX) Take 1 Capsule by mouth in the morning. 30 Capsule 5 11/01/19 23 Discontin ued(Medic ation List Clean Up) documented as of this encounter (statuses as of 07/31/2024) Active Problems Problem Noted Date Diagnosed Date [...] as of this encounter (statuses as of 07/31/2024) Resolved Problems Problem Noted Date Diagnosed Date Resolved Date [place] eye 07/16/2015 09/29/2020 Antepartum abnormal glucose tolerance [...] as of this encounter (statuses as of 07/31/2024) Immunizations Name Administration Dates Next Due HPV Vaccine, 4-Valent 05/18/1996,12/18/1995,09/1995 TDAP, Age 7 and older, IM (Adacel) 11/04/2014, documented as of this encounter Social History Tobacco Use Types Packs/Day Years Used Date Smoking Tobacco: Never Smokeless Tobacco: Never Tobacco Cessation:Counseling Given: Not Answered Alcohol Use Standard Drinks/Week Comments Yes 0 [...] 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 Not on file Not on file documented as of this encounter Last Filed Vital Signs Vital Sign Reading Time Taken Comments Blood Pressure 124/76 07/31/2024 2:38 PM EST Pulse 87 07/31/2024 2:38 PM EST Temperature 36.8 C (98.2 F) 07/31/2024 2:38 PM ES T Respiratory Rate - - Oxygen Saturation 97% 07/31/2024 2:38 PM EST Inhaled Oxygen Concentration - - Weight 105.8 kg (233 lb 5 oz) 07/31/2024 2:38 PM EST Height 167.6 cm (5' 6") 07/31/2024 2:38 PM EST Body Mass Index 37.66 07/31/2024 2:38 PM EST documented in this encounter Progress Notes * Naveen Heard, DO - 07/31/2024 3:10 PM EST Images from the original note were not included. Assessment and Plan Assessment & Plan Chronic Fatigue Persistent fatigue, lightheadedness, and brain fog. Poor sleep quality with frequent awakenings. Possible sleep apnea suggested by symptoms and recent weight gain. -Order sleep study to evaluate for sleep apnea. -Order comprehensive blood work including thyroid function tests and A1c. Hyperparathyroid Resolved Snoring Ongoing, with worsening fatigue Chronic Neck Pain Neck pain leading to headaches. History of small fiber neuropathy. -Continue current management plan. Hiatal Hernia Symptoms of reflux and high heart rate post meals. History of vomiting. -Consider referral to gastroenterology for re-evaluation of hiatal hernia and potential treatment options. Eye Problems New issues with eyes, prescribed prism glasses by neuro-step down specialist who has since retired. -Consider referral to new neuro-step down specialist for follow-up. Gynecological Health Maintenance IUD check overdue due to scheduling issues. Family history of breast cancer. -Schedule in-office IUD check. -Order mammogram at [facility] per patient's request. Possible Sinus Infection Recent onset of cold symptoms, concern for progression to sinus infection. -Prescribe Z-Edis as needed for worsening symptoms. History of Present Illness Alka Zambrano is a 39 year old female that presents for Return Visit (Pt here for return check, no specific concerns noted.) History of Present Illness The patient, with a past medical history of hiatal hernia, small fiber neuropathy, and an intrauterine device (IUD) placement, presents with a general feeling of being unwell. She reports severe fatigue, stating that she feels "super tired all the time" and often feels like she wants to fall asleepduring the day. She also reports lightheadedness, describing it as feeling "almost, like, drunk" and "wobbly." The patient also experiences neck pain, which often precedes a headache. In addition to these symptoms, the patient has noticed weight gain despite not overeating and has been experiencing a cough. She also reports having a hiatal hernia, which causes her to vomit and experience a high heart rate when her stomach hurts. The patient also mentions having an IUD and is unsure of when it was last checked. She also reports having small fiber neuropathy, which causes fatigue in her legs. The patient has also been experiencing issues with her eyes, including difficulty focusing. She hasbeen prescribed prism glasses by a neuro- step down specialist, but is still adjusting to them. The patient also mentions having a cold for over a week and is concerned it may be turning into a sinus infection. Physical Exam Vitals: 07/31/24 1438 Temp: 36.8 C (98.2 F) Pulse: 87 SpO2: 97% BP: 124/76 BMI: 37.68 Physical Exam Constitutional: Appearance: Normal appearance. HENT: Head: Normocephalic and atraumatic. Eyes: Extraocular Movements: Extraocular movements intact. Pupils: Pupils are equal, round, and reactive to light. Cardiovascular: Rate and Rhythm: Normal rate. Neurological: General: No focal deficit present. Mental Status: She is alert and oriented to person, place, and time. Psychiatric: Mood and Affect: Mood normal. Behavior: Behavior normal. Wrap-Up Time: Total time today was 30 minutes excluding any time spent in the performance of separately billed services. Text in this note was generated using an ambient documentation service. I discussed the use of a device to record and summarize our discussion today. All persons present during the encounter consented to its use. documented in this encounter Plan of Treatment Upcoming Encounters Date Type Department Care Team (Late st Contact Info) Description 08/07/2024 8:40 AM EST Telemedicine Neurology [place] [address] [place] [phone] Celina Sexton MD [address] [facility] [place] [id number] 08/26/2024 8:30 AM EST Office Visit Gastroenterology, [facility] [address] [facility] [place] [address] Jesenia Ariza CRNP 132 [facility] [place] [address] 09/05/2024 8:00 AM EST Office Visit Family Practice [facility] [address] [place] [address] Lin Alanis CRNP [address] [place] [address] 09/24/2024 8:00 AM EST Office Visit [facility], [facility] [place] [address] Debbie Huertas CRNP [address] [place] [address] 09/30/2024 3:00 PM EST Office Visit Sleep Disorders Ctr [facility] [address] [facility] [place] [phone] Destini Heard DO [address] [place] [address] Pending Results Name Type Priority Associated Diagnoses Date /Time TSH WITH FREE T4 IF INDICATED Lab Routine Nail brittleness 07/31/2024 3:31 PM EST IRON SCREEN, INCLUDING TIBC Lab Routine Low iron stores Nail brittleness 07/31/2024 3:31 PM EST FERRITIN Lab Routine Low iron stores Nail brittleness 07/31/2024 3:31 PM EST HEMOGLOBIN A1C Lab Routine Elevated fasting glucose 07/31/2024 3:31 PM EST COMPREHENSIVE METABOLIC PANEL Lab Routine Elevated fasting glucose 07/31/2024 3:31 PM EST FOLIC ACID Lab Routine Nail brittleness 07/31/2024 3:31 PM EST THYROID ANTIBODY AND TPO ANTIBODY Lab Routine Nail brittleness 07/31/2024 3:31 PM EST Scheduled Orders Name Type Priority Associated Diagnoses Orde r Schedule TSH WITH FREE T4 IF INDICATED Lab Routine Nail brittleness Expected: 07/31/2024 (Approximate), Expires: 07/31/2025 IRON SCREEN, INCLUDING TIBC Lab Routine Low iron stores Nail brittleness Expected: 07/31/2024 (Approximate), Expires: 07/31/2025 FERRITIN Lab Routine Low iron stores Nail brittleness Expected: 07/31/2024 (Approximate), Expires: 07/31/2025 HEMOGLOBIN A1C Lab Routine Elevated fasting glucose Expected: 07/31/2024 (Approximate), Expires: 07/31/2025 COMPREHENSIVE METABOLIC PANEL Lab Routine Elevated fasting glucose Expected: 07/31/2024 (Approximate), Expires: 07/31/2025 FOLIC ACID Lab Routine Nail brittleness Expected: 07/31/2024 (Approximate), Expires: 07/31/2025 THYROID ANTIBODY AND TPO ANTIBODY Lab Routine Nail brittleness Expected: 07/31/2024 (Approximate), Expires: 07/31/2025 MAMMOGRAM SCREENING CARLOS BILATERAL Medical Imaging Routine Encounter for screening mammogram for breast cancer Expected: 07/31/2024, Expires: 08/30/2025 Scheduled Referrals Name Type Priority Associated Diagnoses Order Schedule SLEEP MEDICINE REFERRAL OP Referral Within 10 days (routine) Malaise and fatigue Snoring Ordered: 07/31/2024 ADULT GASTROENTEROLOGY REFERRAL OP Referral Within 3 days (urgent) Hiatal hernia Gastroesophageal reflux disease with esophagitis without hemorrhage Ordered: 07/31/2024 Health Maintenance Due Date Last Done Comments Hepatitis B Vaccine (1 of 3 - 19+ 3-dose series) 2005 HPV/Co-Test 2016 COVID-19 Vaccine ( - season) 2024 Influenza Vaccine (FLU shot) (#1) 2024 Cervical Cancer Screening 10/20/2024 Pap Smear 10/20/2024 10/20/2021, 07/0 11/2017, 10/03/2013, Additional history exists DTap/Tdap Vaccines (3 - Td or Tdap) 11/04/2024 11/04/2014, 02/27/2010 Depression Screening 07/31/2025 07/31/2024 Diabetes Screening 06/14/2026 06/14/2023, 0 10/23/2022, 09/19/2022, Additional history exists IUD 7-Year 03/04/2027 03/04/2020 HPV (Gardasil) Vaccine Completed 6, 12/18/1995, 10/18/1995 [...] as of this encounter Visit Diagnoses Diagnosis Hyperparathyroidism, primary (HCC)- Primary Primary hyperparathyroidism Myofascial pain syndrome Mylagia and myositis, unspecified Acute maxillary sinusitis, recurrence not specified Low iron stores Other abnormal blood chemistry Malaise and fatigue Other malaise and fatigue Snoring Other dyspnea and respiratory abnormality Nail brittleness Other specified disease of nail Elevated fasting glucose Impaired fasting glucose Hiatal hernia Diaphragmatic hernia without mention of obstruction or gangrene Gastroesophageal reflux disease with esophagitis without hemorrhage Encounter for screening mammogram for breast cancer documented in this encounter Care Teams 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
--- OUTSIDE RECORDS SUMMARY | 2024-08-21 02:48 | External Medical Summary | Summary of Care ---
Author Name Unknown Organization [facility] Address [address] [place] [address] Phone [phone] Care Team Providers Care Accounts Payable Specialist Name Role Phone Naveen Heard Primary Care Provider Reason for Visit * Reason Onset Date Comments Medication Refill 02/27/2024 Encounter Details Date Type Department Care Team (Late st Contact Info) Description 02/27/2024 Refill [facility] [address] [place] [address] Celina Sexton MD [address] [place], [place] [id number] Bilateral occipital neuralgia; Lightheadedness; Depersonalization syndrome (HCC) Allergies Active Allergy Reactions Criticality Noted Date Comments Metoclopramide 05/25/2022 Other reaction(s): MUSCLE SPASMS/TWITCHES documented as of this encounter (statuses as of 02/28/2024) Medications Medication Sig Dispensed Refills Start Date End Date Status Levonorgestrel 20 MCG/24HR Intrauterine Intrauterine Device Inserted on 02/25/15 1 Each 0 02/25/2015 Active Probiotic Acidophilus BioBeads Oral Capsule Take 1 Cap by mouth at bedtime. Active Magnesium 400 MG Oral Capsule Take 1 Capsule by mouth at bedtime. Active Riboflavin 400 MG Oral Tablet Take 1 Tablet by mouth in the morning. Active Multivitamin Adult Oral Tablet Take by mouth. Active Meclizine HCl 12.5 MG Oral Tablet (Antivert) Take 2 tablets by mouth up to three times a day as needed for being unbalanced 180 Tablet 11 04/14/2022 Active Naratriptan HCl 2.5 MG Oral Tablet (Amerge) naratriptan 2.5 mg tablet Active Celecoxib 200 MG Oral Capsule (CeleBREX) Take 1 Capsule by mouth in the morning. 30 Capsule 5 11/01/2022 Active Additional Information Patient not taking.Reported on 11/13/2022 Fluticasone Propionate 50 MCG/ACT Nasal Suspension (Flonase)Indication s:Acute non-recurrent frontal sinusitis SQUIRT 2 SPRAYS IN EACH NOSTRIL ONCE DAILY 1 Each 11/13/2022 Active Metoprolol Succinate ER 25 MG Oral Tablet Extended Release 24 Hour (toPROL XL)Indications:Palp itations,SVT (supraventricular tachycardia) (HCC),Tachycardia Take 0.5 Tablets by mouth in the morning. 45 Tablet 3 09/12/2023 Active Aspirin Low Dose 81 MG Oral Tablet Delayed Release (aspirin enteric coated)Indications: Dizziness take 1 tablet by mouth IN THE MORNING 90 Tablet 01/28/2024 Active Baclofen 20 MG Oral TabletIndications:B ilateral occipital neuralgia,Lighthead edness,Depersonaliz ation syndrome (HCC) take 1 tablet by mouth at bedtime and 1/2 to 1 tablet up to three times a day if needed for HEAD AND NECK PAIN 120 Tablet 11 02/27/2024 Active documented as of this encounter (statuses as of 02/28/2024) Active Problems Problem Noted Date Diagnosed Date [...] as of this encounter (statuses as of 02/28/2024) Resolved Problems Problem Noted Date Diagnosed Date Resolved Date [place] eye 07/16/2015 09/29/2020 Antepartum abnormal glucose tolerance of mother 08/12/2014 11/23/2014 Overview: Glucola elevated. 3hr GTT ordered--WNL Obesity in 05/12/2014 015 Overview: Early glucola Encounter for supervision of other normal 03/10/2014 11/23/2014 Overview: U/s done 10/06 (35w2d)for size>dates: 1. Head growth is greater than 2 standard deviations above mean. No hydrocephalus. 2. EFW: 3132 + / - 457 g which is between the 90th and 95th percentiles ICD-10 update of inactive term Encounter for supervision of other normal 10/03/2013 01/09/2014 Overview: ICD-10 update of inactive term Threatened , unspeci fied as to episode of care 09/29/2013 10/03/2013 Spasm of muscle 11/11/2012 09/29/2020 Pain in right ankle 03/11/2012 05/02/20 12 Acute tonsillitis 04/07/2011 05/02/2012 Acute sinusitis 01/31/2011 05/02/2012 Obesity, Class II, BMI 35-39 .9, isolated (see actual BMI) 12/13/2009 12/06/2021 Overview: Per Obesity Taxonomy, Pt declines nutrition consult Polyneuropathy in other dise ases classified elsewhere 08/25/2009 11/27/2020 Backache 08/25/2009 05/02/2012 Normal , first 08/16/200911/2009 Obesity, Class I, BMI 30.0-3 4.9 (see actual BMI) 08/16/2009 12/13/2009 Overview: Per Obesity Taxonomy, Pt declines nutrition consult documented as of this encounter (statuses as of 02/28/2024) Immunizations Name Administration Dates Next Due HPV [...] Date Recorded PHQ Adult Total Score 0 11/08/2021 Hunger Vital Sign Answer Date Recorded Within the past 12 months, y ou worried that your food would run out before you got the money to buy more. Never true 09/29/19 21 Within the past 12 months, t he food you bought just didn't last and you didn't have money to get more. Never true 09/29/2020 Sex and Gender Information Value Date Recorded Sex Assigned at Female 09/29/2020 2:05 PM EST Gender Identity Female 09/29/2020 2:05 PM EST Sexual Orientation Straight 09/29/2020 2: 05 PM EST Job Start Date Occupation Industry Not on file Not on file Not on file documented as of this encounter Miscellaneous Notes * Telephone Encounter - Reij Darnell - 02/28/2024 6:11 AM EDTRefused Prescriptions: Disp Refills Baclofen 20 MG Oral Tablet 120 Ta*11 Sig: take 1 tablet by mouth at bedtime and 1/2 to 1 tablet up to three times a day if needed for HEAD AND NECK PAINRefused By:REJI DARNELLReason for Refusal: Duplicate Request documented in this encounter Plan of Treatment Upcoming Encounters Date Type Department Care Team (Late st Contact Info) Description 05/21/2024 3:00 PM EDT Office Visit Cardiology, [facility] [address] [facility] [place] [address] Amber Machado PA-C [address] [place] [id number] 08/07/2024 8:40 AM EST Telemedicine Neurology [address] [place] [phone] Celina Sexton MD [address] [place] [address] Health Maintenance Due Date Last Done Comments Hepatitis B (1 of 3 - 19+ 3-dose series) 2005 HPV/Co-Test 2016 Depression Screening 11/08/2022 11/08/2021 COVID-19 Vaccine (1 - 2022-24 season) 2023 Influenza Vaccine (FLU shot) (Season Ended) 2024 Cervical Cancer Screening 10/20/2024 Pap Smear 10/20/2024 10/20/2021, 07/11/2017, 10/03/2013, Additional history exists DTaP,Tdap,and Td Vaccines (3 - Td or Tdap) 11/04/2024 11/04/2014, 02/27/2010 Diabetes Screening 06/14/2026 06/14/2023, 0 10/23/2022, 09/19/2022, Additional history exists IUD 7-Year 03/04/2027 03/04/2020 GARDASIL-HPV IMMUNIZATION SERIES Completed 05/18/1996, 12/18/1995, 10/18/1995 MENINGOCOCCAL (MENACTRA/MENVEO) Aged Out No longer eligible based on patient's age to complete this topic Pneumococcal Vaccine: Pediatrics (0 to 5 Years) and At-Risk Patients (6 to 64 Years) Aged Out No longer eligible based on patient's age to complete this topic documented as of this encounter Medical Devices Not on filedocumented as of this encounter Visit Diagnoses Diagnosis Bilateral occipital neuralgia Other syndromes affecting cervical region Lightheadedness Dizziness and giddiness Depersonalization syndrome (HCC) Depersonalization disorder documented in this encounter Care Teams Accounts Payable Specialist Relationship Specialty Start Date End Date Naveen Heard DO [address] [place] [address] PCP - General Family Medicine 09/20/20 documented as of this encounter
--- OUTSIDE RECORDS SUMMARY | 2024-08-21 02:48 | External Medical Summary ---
Author Name Unknown Address Unknown Organization [id number]:[facility] [place] [address] [facility] [place] [address] Laboratory Report Ordering Provider Test Date Status SID MCCLENDON 07/31/2024 15:31:16 Final Observation Date Value Abnormality Reference (Units ) Status Iron 07/31/2024 15:31:16 49 33-151 (ug/dL) Final Iron-binding capacity 07/31/2024 15:31:16 365 250-425 (ug/dL) Final Transferrin Sat % 07/31/2024 15:31:16 13 Below low normal 15-55 (%) Final Performing Location [facility] [place] [address] [place] [address]
--- OUTSIDE RECORDS SUMMARY | 2024-08-21 02:48 | External Medical Summary | Summary of Care ---
Author Name Unknown Organization [facility] Address [address] [place] [address] Phone [phone] Care Team Providers Care Design/Animation Instructor Name Role Phone Adina Heardstephanie Mayorgasamson Primary Care Provider Reason for Visit * Reason Comments Outpatient Testing Encounter Details Date Type Department Care Team (Late st Contact Info) Description 08/04/2024 11:50 AM EST Laboratory Laboratory, [facility] [address] [place] [address] [facility] [address] [place] [address] Hyperparathyroidism, primary (HCC); Hypercalcemia Allergies Active Allergy Reactions Criticality Noted Date Comments Metoclopramide 05/25/2022 Other reaction(s): MUSCLE SPASMS/TWITCHES documented as of this encounter (statuses as of 08/04/2024) Medications Levonorgestrel 20 MCG/24HR Intrauterine Intrauterine Device [...] as of this encounter (statuses as of 08/04/2024) Active Problems Problem Noted Date Diagnosed Date [...] as of this encounter (statuses as of 08/04/2024) Resolved Problems Problem Noted Date Diagnosed Date Resolved Date [place] eye 07/16/2015 09/29/2020 Antepartum abnormal glucose tolerance [...] as of this encounter (statuses as of 08/04/2024) Immunizations Name Administration Dates Next Due HPV [...] 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 Not on file Not on file documented as of this encounter Plan of Treatment Upcoming Encounters Date Type Department Care Team (Late st Contact Info) Description 08/07/2024 8:40 AM EST Telemedicine Neurology [place] [address] [place] [phone] Celina Sexton MD [address] [facility] [place] [address] 08/19/2024 3:00 PM EST Imaging Radiology [facility]st [facility] [address] [place] [address] 08/26/2024 8:30 AM EST Office Visit Gastroenterology, [facility] [address] [facility] [place] [address] Jesenia Ariza CRNP [address] [facility] [place] [address] 09/05/2024 8:00 AM EST Office Visit Family Practice [facility] 132 [facility] [place] [address] Lin Alanis CRNP 132 [facility] [place] [address] 09/12/2024 8:00 AM EST Telemedicine Endocrinology, [place] [address] [place] [address] Earl Prado MD [address] [address] 09/24/2024 8:00 AM EST Office Visit Cardiology, [facility] [address] [facility] [place] [address] Debbie Huertas CRNP 132 [facility] [place] [address] 09/30/2024 3:00 PM EST Office Visit Sleep Disorders [facility] 132 [facility] [place] [phone] Destini Heard DO [address] [facility] [place] [address] Pending Results Name Type Priority Associated Diagnoses Date /Time PTH Lab Routine Hyperparathyroidism, primary (HCC) 08/04/2024 11:45 AM EST T4, FREE Lab Routine Hyperparathyroidism, primary (HCC) 08/04/2024 11:45 AM EST CALCIUM, IONIZED Lab Routine Hypercalcemia Hyperparathyroidism, primary (HCC) 08/04/2024 11:45 AM EST 25-HYDROXY VITAMIN D Lab Routine Hyperparathyroidism, primary (HCC) 08/04/2024 11:45 AM EST Health Maintenance Due Date Last Done Comments Hepatitis B Vaccine (1 of 3 - 19+ 3-dose series) 2005 HPV/Co-Test 2016 COVID-19 Vaccine (1 - 2024-25 season) 2024 Influenza Vaccine (FLU shot) (#1) [...] this encounter Visit Diagnoses Diagnosis Hyperparathyroidism, primary (HCC) Primary hyperparathyroidism Hypercalcemia documented in this encounter Care Teams Design/Animation Instructor Relationship Specialty Start Date End Date Naveen Heard DO [address] [place] [address] PCP - General Family Medicine 09/20/20 documented as of this encounter
--- OUTSIDE RECORDS SUMMARY | 2024-08-21 02:48 | External Medical Summary ---
Author Name Unknown Address Unknown Organization K01:[facility] [place] [address] [facility] [address] [facility] [address] Laboratory Report Ordering Provider Test Date Status SID MCCLENDON 08/04/2024 11:45:05 Final Observation Date Value Abnormality Reference (Units ) Status Parathyrin.intact [Mass/volume] in Serum or Plasma 08/04/2024 11:45:05 55 15-65 (pg/mL) Final Performing Location [facility] [place] - [address] [facility] [address]
--- OUTSIDE RECORDS SUMMARY | 2024-08-21 02:48 | External Medical Summary ---
Author Name Unknown Address Unknown Organization K01:LAB[facility]ATORY [facility] - [address] [facility] [place] [address] Laboratory Report Ordering Provider Test Date Status SID MCCLENDON 07/31/2024 15:31:16 Final Observation Date Value Abnormality Reference (Units ) Status Ferritin 07/31/2024 15:31:16 106 13-150 (ng /mL) Final Performing Location LABORATORY [facility] - [address] [place] [address]
--- OUTSIDE RECORDS SUMMARY | 2024-08-21 02:48 | External Medical Summary | Summary of Care ---
Author Name Unknown Organization [facility] Address [address] [place] [address] Phone [phone] Care Team Providers Care Plastics Seasoner Operator Name Role Phone Naveen Heard DO Primary Care Provider Reason for Referral * Evaluate & Treat - Unlimited Visits (Within 3 days (urgent)) - Authorized Specialty Diagnoses / Procedures Referred By Contac t Referred To Contact Endocrinology/Metabolism / Endocrinology Diagnoses Hypercalcemia Hyperparathyroidism, primary (HCC) Naveen Heard DO [address] [place] [address] Phone: tel: fax: Referral ID Status Reason Start Date Expiration Date Visits Requested Visits Authorized [id number] Authorized Specialty Services Required 4 [id number] Question Answer Referral Priority Within 3 days (urgent) Where should this appointment be scheduled? [facility] For what condition is the patient being referred? Calcium and Bone For which calcium and bone condition are you referring? Parathyroid * Precert (Within 10 days (routine)) - Pending Review Specialty Diagnoses / Procedures Referred By Contac t Referred To Contact Radiology Diagnoses Hypercalcemia Hyperparathyroidism, primary (HCC) Procedures CT NECK W WO CONTRAST Naveen Heard DO [address] [place] [address] Phone: tel: fax: Referral ID Status Reason Start Date Expiration Date V isits Requested Visits Authorized [id number] Pending Review 08/04/2024 [id number] Reason for Visit * Reason Comments Vomiting Pt had vomiting spel ls o 08/01/24 and 08/02/2024. Pt states sx not related to viral illness, but thinks related to hiatal hernia. Pt seen at [facility] yesterday as CT done per pt and states they had noted that hiatal hernia "was visible", but not critically an issue at present per pt. No vomiting past 24 hrs. 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 Assessment and Plan Assessment & Plan Hiatal Hernia Recent episode of vomiting and persistent sensation of fullness and pressure in the chest. Discussed the need for further evaluation and possible intervention due to increasing symptoms. -Schedule CT of the neck. -Refer to endocrinology for further evaluation. Possible Respiratory Infection Persistent cough and shortness of breath, recent completion of azithromycin without resolution of symptoms. Suspected walking pneumonia. -Prescribe low-dose steroids (20mg daily) to improve lung function. Hypercalcemia Elevated calcium levels, possibly related to parathyroid dysfunction. Discussed the need for further evaluation. -Order ionized calcium, parathyroid hormone, and T4 hormone level tests. Iron Deficiency Low-normal iron levels, not currently causing overt dysfunction. Plan to address after more pressing issues are resolved. -Consider taking iron supplements. Follow-up Pending results of imaging and lab tests, and evaluation by endocrinology. History of Present Illness Alka Zambrano is a 39 year old female that presents for Vomiting (Pt had vomiting spells o 08/01/24 and 08/02/2024. Pt states sx not related to viral illness, but thinks related to hiatal hernia. Pt seen at [facility] yesterday as CT done per pt and states they had noted that hiatal hernia "was visible", but not critically an issue at present per pt. No vomiting past 24 hrs.) History of Present Illness The patient, with a history of hiatal hernia and parathyroid surgery, presents with worsening symptoms including chest pain, shortness of breath, coughing, and leg weakness. The patient describes thechest pain as pressure and fullness, with the sternum feeling bruised. The shortness of breath is exacerbated by any activity, leading to persistent coughing. The patient also reports an unusual episode of vomiting and difficulty swallowing, which is not typical for her. The patient's legs feel weak and shaky, a symptom that started before the recent episode of vomiting. The patient also mentionshaving a respiratory cold. Physical Exam Vitals: 08/04/24 1102 Temp: 36.8 C (98.2 F) Pulse: 95 Resp: 16 SpO2: 96% BP: 122/88 Physical Exam Constitutional: Appearance: Normal appearance. HENT: Head: Normocephalic and atraumatic. Eyes: Extraocular Movements: Extraocular movements intact. Pupils: Pupils are equal, round, and reactive to light. Cardiovascular: Rate and Rhythm: Normal rate. Pulmonary: Effort: No respiratory distress. Breath sounds: Rales present. Neurological: General: No focal deficit present. Mental Status: She is alert and oriented to person, place, and time. Psychiatric: Mood and Affect: Mood normal. Behavior: Behavior normal. Wrap-Up Check-out note: Please see if we can get Dr Huang for her GI f/u Time: Total time today was 25 minutes excluding any time spent in the performance of separately billed services. Text in this note was generated using an Angelfish documentation service. I discussed the use of a device to record and summarize our discussion today. All persons present during the encounter consented to its use. documented in this encounter Nursing Notes * Elizabet Ramos LPN - 08/04/2024 11:06 AM EST The patient has been properly identified by confirmation of name and date of . Chief Complaint Patient presents with Vomiting Pt had vomiting spells o 08/01/24 and 08/02/2024. Pt states sx not related to viral illness, but thinks related to hiatal hernia. Pt seen at [facility] yesterday as CT done per pt and states theyhad noted that hiatal hernia "was visible", but not critically an issue at present per pt. No vomiting past 24 hrs. documented in this encounter Plan of Treatment Upcoming Encounters Date Type Department Care Team (Late st Contact Info) Description 08/04/2024 11:50 AM EST Laboratory Laboratory, [address] [phone] [facility] [address] [address] Hyperparathyroidism, primary (HCC); Hypercalcemia 08/07/2024 8:40 AM EST Telemedicine Neurology [address] [place] [address] Celina Sexton MD [address] [place] [address] 08/19/2024 3:00 PM EST Imaging Radiology [facility] [address] [address] 08/26/2024 8:30 AM EST Office Visit Gastroenterology, [address] [place] [address] Jesenia Airza CRNP [address] [place] [address] 09/05/2024 8:00 AM EST Office Visit [facility] [address] [facility] [place] [address] Lin Alanis CRNP [address] [facility] [place] [address] 09/12/2024 8:00 AM EST Telemedicine Endocrinology, [place] [address] [place] [phone] Earl Prado MD [address] [address] 09/24/2024 8:00 AM EST Office Visit Cardiology, [facility] 132 [facility] [place] [address] Debbie Huertas CRNP 132 [facility] [place] [address] 09/30/2024 3:00 PM EST Office Visit Sleep Disorders [facility] 132 [facility] [place] [phone] Destini Heard DO 132 [facility] [place] [address] Pending Results Name Type Priority Associated Diagnoses Date /Time PTH Lab Routine Hyperparathyroidism, primary ([facility]) 08/04/2024 11:45 AM EST T4, FREE Lab Routine Hyperparathyroidism, primary ([facility]) 08/04/2024 11:45 AM EST CALCIUM, IONIZED Lab Routine Hypercalcemia Hyperparathyroidism, primary ([facility]) 08/04/2024 11:45 AM EST 25-HYDROXY VITAMIN D Lab Routine Hyperparathyroidism, primary ([facility]) 08/04/2024 11:45 AM EST Scheduled Orders Name Type Priority Associated Diagnoses Orde r Schedule PTH Lab Routine Hyperparathyroidism, primary (HCC) Expected: 08/04/2024 (Approximate), Expires: 08/04/2025 T4, FREE Lab Routine Hyperparathyroidism, primary (HCC) Expected: 08/04/2024 (Approximate), Expires: 08/04/2025 CALCIUM, IONIZED Lab Routine Hypercalcemia Hyperparathyroidism, primary (HCC) Expected: 08/04/2024 (Approximate), Expires: 08/04/2025 CT NECK W WO CONTRAST Medical Imaging Routine Hypercalcemia Hyperparathyroidism, primary (HCC) Ordered: 08/04/2024 25-HYDROXY VITAMIN D Lab Routine Hyperparathyroidism, primary (HCC) Expected: 08/04/2024 (Approximate), Expires: 08/04/2025 Scheduled Referrals Name Type Priority Associated Diagnoses Order Schedule ADULT ENDOCRINOLOGY REFERRAL OP Referral Within 3 days (urgent) Hypercalcemia Hyperparathyroidism , primary (HCC) Ordered: 08/04/2024 Health Maintenance Due Date Last Done Comments [...] as of this encounter Visit Diagnoses Diagnosis Hiatal hernia- Primary Diaphragmatic hernia without mention of obstruction or gangrene Hypercalcemia Hyperparathyroidism, primary (HCC) Primary hyperparathyroidism Acute cough Low iron stores Other abnormal blood chemistry Hyperparathyroidism, primary (HCC) Primary hyperparathyroidism Hypercalcemia documented in this encounter Care Teams Plastics Seasoner Operator Relationship Specialty Start Date End Date Naveen Heard DO [address] [place] [address] PCP - General Family Medicine 09/20/20 documented as of this encounter
--- OUTSIDE RECORDS SUMMARY | 2024-08-21 02:48 | External Medical Summary | Summary of Care ---
Author Name Unknown Organization [facility] Address [address] [place] [address] Phone [phone] Care Team Providers Care Busser Name Role Phone Adina Heardstephanie Mayorgasamson Primary Care Provider Reason for Visit * Reason Comments Outpatient Testing Encounter Details Date Type Department Care Team (Late st Contact Info) Description 07/31/2024 4:00 PM EST Laboratory Laboratory, [facility] [address] [place] [address] [facility] [address] [place] [address] Nail brittleness; Low iron stores; Elevated fasting glucose Allergies Active Allergy Reactions Criticality Noted Date [...] Problem Noted Date Diagnosed Date Resolved Date [place] eye 07/16/2015 09/29/2020 Antepartum abnormal glucose tolerance [...] 11/27/2020 Backache 08/25/2009 05/02/2012 Normal , first 08/16/2009 0911/2009 Obesity, Class I, BMI 30.0-3 4.9 (see [...] 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 Not on file Not on file documented as of this encounter Plan of Treatment Upcoming Encounters Date Type Department Care Team (Late st Contact Info) Description 08/07/2024 8:40 AM EST Telemedicine Neurology [place] [address] [place] [phone] Celina Sexton MD [address] [facility] [place] [address] 08/26/2024 8:30 AM EST Office Visit Gastroenterology, [facility] [address] [place] [address] Jesenia Ariza CRNP [address] [address] 09/05/2024 8:00 AM EST Office Visit Family Practice [facility] [address] [place] [address] Lin Alanis CRNP [address] [address] 09/24/2024 8:00 AM EST Office Visit Cardiology, [facility] [address] [place] [address] Debbie Huertas CRNP [address] [place] [address] 09/30/2024 3:00 PM EST Office Visit Sleep Disorders Ctr [facility] [address] [place] [phone] Destini Heard DO [address] [place] [address] Pending Results Name Type Priority Associated Diagnoses [...] Routine Nail brittleness 07/31/2024 3:31 PM EST Health Maintenance Due Date Last [...] as of this encounter Visit Diagnoses Diagnosis Nail brittleness Other specified disease of nail Low iron stores Other abnormal blood chemistry Elevated fasting glucose Impaired fasting glucose documented in this encounter Care Teams Busser Relationship Specialty Start Date End Date Naveen Heard DO [address] [facility] [place] [address] PCP - General Family Medicine 09/20/20 documented as of this encounter
--- OUTSIDE RECORDS SUMMARY | 2024-08-21 02:48 | External Medical Summary ---
Author Name Unknown Address Unknown Organization K01:[facility] [place] [address] [facility] [address] Laboratory Report Ordering Provider Test Date Status DANELLE,LAU 07/31/2024 15:31:16 Final Observation Date Value Abnormality Reference (Units ) Status TSH 07/31/2024 15:31:16 0.59 0.27-4.20 (uIU/mL) Final Performing Location [facility] [place] [address] [facility] [address]
--- OUTSIDE RECORDS SUMMARY | 2024-08-21 02:48 | External Medical Summary ---
Author Name Unknown Address Unknown Organization K01:[place] [facility] [place] [facility] [place] [address] [facility] [address] Laboratory Report Ordering Provider Test Date Status SID MCCLENDON 08/04/2024 11:45:05 Final Observation Date Value Abnormality Reference (Units ) Status Calcium.ionized [Moles/volume] in Serum or Plasma by Ion-selective membrane electrode (ISE) 08/04/2024 11:45:05 1.35 Above high normal 1.13-1.32 (mmol/L) Final This test was developed and its performance characteristics dtermined by [employer]. It has not been cleared or approved by the [place] Food and Drug Administration Performing Location LABORATORY [place] [address] [facility] [address]
--- OUTSIDE RECORDS SUMMARY | 2024-08-21 02:48 | External Medical Summary | Summary of Care ---
Author Name Unknown Organization [facility] Address [address] [place] [address] Phone [phone] Care Team Providers Care Receiving Team Member Name Role Phone Danelle Heard DO Primary Care Provider Reason for Visit * Reason Comments eRx-Medication Refill Encounter Details Date Type Department Care Team (Late st Contact Info) Description 04/24/2024 Refill Family Practice [facility] [address] [place] [address] Danelle Heard DO [address] [place] [address] Dizziness Allergies Active Allergy Reactions Criticality Noted Date Comments Metoclopramide 05/25/2022 Other reaction(s): MUSCLE SPASMS/TWITCHES documented as of this encounter (statuses as of 04/25/2024) Medications Medication Sig Dispensed Refills Start Date [...] Multivitamin Adult Oral Tablet Take by mouth. Act sin Meclizine HCl 12.5 MG Oral Tablet (Antivert) [...] 11/13/2022 Fluticasone Propionate 50 MCG/ACT Nasal Suspension (Flonase)Indicati ons:Acute non-recurrent frontal sinusitis SQUIRT 2 SPRAYS IN EACH NOSTRIL ONCE DAILY 1 Each 11/13/2022 Active Metoprolol Succinate ER 25 MG Oral Tablet Extended Release 24 Hour (toPROL XL)Indications:Pa lpitations,SVT (supraventricular tachycardia) (HCC),Tachycardia Take 0.5 Tablets by mouth in the morning. 45 Tablet 3 09/12/2023 Active Baclofen 20 MG Oral TabletIndications :Bilateral occipital neuralgia,Lighthe adedness,Deperson alization syndrome (HCC) take 1 tablet by mouth at bedtime and 1/2 to 1 tablet up to three times a day if needed for HEAD AND NECK PAIN 120 Tablet 11 02/27/2024 Active Aspirin Low Dose 81 MG Oral Tablet Delayed Release (aspirin enteric coated)Indication s:Dizziness take 1 tablet by mouth IN THE MORNING 90 Tablet 04/25/2024 Active Aspirin Low Dose 81 MG Oral Tablet Delayed Release (aspirin enteric coated)Indication s:Dizziness take 1 tablet by mouth IN THE MORNING 90 Tablet 01/28/2024 04/25/20 24 Discontinued documented as of this encounter (statuses as of 04/25/2024) Active Problems Problem Noted Date Diagnosed Date [...] as of this encounter (statuses as of 04/25/2024) Resolved Problems Problem Noted Date Diagnosed Date Resolved Date [place] eye 07/16/2015 09/29/2020 Antepartum abnormal glucose tolerance [...] as of this encounter (statuses as of 04/25/2024) Immunizations Name Administration Dates Next Due HPV [...] money to get more. Never true 09/29/2020 Utilities Answer Date Recorded Do you have trouble paying y our heating, water, or electric bill? (Adult - for ages 18 years and over) Not on file 03/04/2024 Is your family able to pay t he heat, water, or electric bill? (Household - for ages 0-17 years) Not on file 03/04/2024 Does your family have access to good internet? (Household - for ages 0-17 years) Not on file 03/04/2024 Social Connections Answer Date Recorded How often do you feel lonely or isolated from those around you? (Adult - for ages 18 years and over) Not on file 03/04/2024 Sex and Gender Information Value Date Recorded Sex Assigned at Female 09/29/2020 2:05 PM EST Gender Identity Female 09/29/2020 2:05 PM EST Sexual Orientation Straight 09/29/2020 2: 05 PM EST Job Start Date Occupation Industry Not on file Not on file Not on file documented as of this encounter Miscellaneous Notes * Telephone Encounter - Marisa Colin, [facility] - 04/25/2024 2:45 PM EDT Signed Prescriptions: Disp Refills Aspirin Low Dose 81 MG Oral Tablet Delayed*90 Tab*0 Sig: take 1 tablet by mouth IN THE MORNINGAuthorizing Provider: DANELLE HEARD User: MARISA COLIN * Telephone Encounter - Marisa Colin [facility] - 04/25/2024 2:44 PM EDT RX authorized. Zero refills given until upcoming appt. 07/17/2024 Thank you, Marisa Colin, PharmD Clinical Pharmacist [facility] ([facility]) 04/25/24 2:44 PM [phone] documented in this encounter Plan of Treatment Upcoming Encounters Date Type Department Care Team (Late st Contact Info) Description 05/21/2024 3:00 PM EDT Office Visit Cardiology, [facility] [address] [facility] [place] [address] Amber Machado PA-C [address] [facility] [address] 07/17/2024 6:20 PM EDT Office Visit Family Practice [facility] [address] [place] [address] Danelle Heard DO 132 [facility] [place] [address] 08/07/2024 8:40 AM EST Telemedicine Neurology [place] [address] [place] [phone] Celina Sexton MD [address] [facility] [place] [address] Health Maintenance Due Date Last Done Comments Hepatitis B Vaccine (1 of 3 - 19+ 3-dose series) 2005 HPV/Co-Test 2016 Depression Screening 11/08/2022 11/08/2021 COVID-19 Vaccine ( - 2022-24 season) 2023 Influenza Vaccine (FLU shot) (#1) 2024 Cervical Cancer Screening 10/20/2024 Pap Smear 10/20/2024 10/20/2021, 07/0 11/2017, 10/03/2013, Additional history exists DTaP,Tdap,and Td Vaccines [...] as of this encounter Visit Diagnoses Diagnosis Dizziness Dizziness and giddiness documented in this encounter Care Teams Receiving Team Member Relationship Specialty Start Date End Date Danelle Heard DO [address] [address] PCP - General Family Medicine 09/20/20 documented as of this encounter
--- OUTSIDE RECORDS SUMMARY | 2024-08-21 02:48 | External Medical Summary | Summary of Care ---
Author Name Unknown Organization [facility] Address [address] [place] [address] Phone [phone] Care Team Providers Care Airline Captain Name Role Phone Naveen Heard DO Primary Care Provider Reason for Visit * Reason Onset Date Comments Medication Refill 04/30/2024 Encounter Details Date Type Department Care Team (Late st Contact Info) Description 04/30/2024 Refill Family Practice [facility] [address] [place] [address] Naveen Heard DO [address] [place] [address] Dizziness Allergies Active Allergy Reactions Criticality Noted Date Comments Metoclopramide 05/25/2022 Other reaction(s): MUSCLE SPASMS/TWITCHES documented as of this encounter (statuses as of 05/01/2024) Medications Medication Sig Dispensed Refills Start Date [...] 3 09/12/2023 Active Baclofen 20 MG Oral TabletIndications:B ilateral [...] IN THE MORNING 90 Tablet 04/25/2024 Active documented as of this encounter (statuses as of 05/01/2024) Active Problems Problem Noted Date Diagnosed Date [...] as of this encounter (statuses as of 05/01/2024) Resolved Problems Problem Noted Date Diagnosed Date Resolved Date [place] eye 07/16/2015 09/29/2020 Antepartum abnormal glucose tolerance [...] as of this encounter (statuses as of 05/01/2024) Immunizations Name Administration Dates Next Due HPV [...] 05/21/2024 3:00 PM EDT Office Visit Cardiology, [facility] [address] [address] Amber Machado PA-C [address] [place] [address] [place] [address] 07/17/2024 6:20 PM EDT Office Visit Family Practice [facility] [address] [address] Naveen Heard, [address] [address] 08/07/2024 8:40 AM EST Telemedicine Neurology [place] [address] [place] [phone] Celina Sexton MD [address] [facility] [place] [address] Health Maintenance Due Date Last Done Comments [...] giddiness documented in this encounter Care Teams Airline Captain Relationship Specialty Start Date End Date Naveen Heard DO [address] [place] [address] PCP - General Family Medicine 09/20/20 documented as of this encounter
--- OUTSIDE RECORDS SUMMARY | 2024-08-21 02:48 | External Medical Summary ---
Author Name Unknown Address Unknown Organization K01:LABORATORY [facility] - [address] [facility] [address] [facility] [address] Laboratory Report Ordering Provider Test Date Status SID MCCLENDON 08/04/2024 11:45:05 Final Observation Date Value Abnormality Reference (Units ) Status T4, Free 08/04/2024 11:45:05 1.2 0.9-1.7 (n g/dL) Final Performing Location LABORATORY [facility] - [address] [facility] [address]
--- OUTSIDE RECORDS SUMMARY | 2024-08-21 02:48 | External Medical Summary ---
Author Name Unknown Address Unknown Organization K01:[place]ORY [facility] [place] - [address] [facility] [address] Laboratory Report Ordering Provider Test Date Status SID MCCLENDON 07/31/2024 15:31:16 Final Observation Date Value Abnormality Reference (Units ) Status Folic Acid 07/31/2024 15:31:16 >20.0 >4.5 (ng/ mL) Final Performing Location [facility] [address] [facility] [address]
--- OUTSIDE RECORDS SUMMARY | 2024-08-21 02:48 | External Medical Summary ---
Author Name Unknown Address Unknown Organization K01:[facility]ATORY [facility] [place] - [address] [facility] [address] Laboratory Report Ordering Provider Test Date Status SID MCCLENDON 07/31/2024 15:31:16 Final Observation Date Value Abnormality Reference (Units ) Status HbA1C 07/31/2024 15:31:16 5.6 4.0-5.6 (% ) Final The use of HbA1c to monitor glycemic status is based on normal hemoglobin and HbA composition. This test should not be used in patients with abnormal hemoglobin that affects the half life of the red blood cell or the in vivo glycation rates. Glucose, estimated average 07/31/2024 15:31:16 114 <126 (mg/dL) Final Performing Location LABORATORY [facility] [place] - [address] [facility] [address]
--- OUTSIDE RECORDS SUMMARY | 2024-08-21 02:48 | External Medical Summary | Summary of Care ---
Author Name Unknown Organization [facility] Address [address] [place] [address] Phone [phone] Care Team Providers Care Citrus Fruit Packer Name Role Phone Danelle Heard DO Primary Care Provider Reason for Visit * Reason Comments eRx-Medication Refill Encounter Details Date Type Department Care Team (Late st Contact Info) Description 07/23/2024 Refill Family Practice [facility] [address] [place] [address] Danelle Heard DO [address] [place] [address] Dizziness Allergies Active Allergy Reactions Criticality Noted Date Comments Metoclopramide 05/25/2022 Other reaction(s): MUSCLE SPASMS/TWITCHES documented as of this encounter (statuses as of 07/24/2024) Medications Medication Sig Dispensed Refills Start Date [...] by mouth IN THE MORNING 90 Tablet 07/24/2024 Active Aspirin Low Dose 81 MG Oral Tablet Delayed Release (aspirin enteric coated)Indication s:Dizziness take 1 tablet by mouth IN THE MORNING 90 Tablet 04/25/2024 07/24/20 24 Discontinued documented as of this encounter (statuses as of 07/24/2024) Active Problems Problem Noted Date Diagnosed Date [...] as of this encounter (statuses as of 07/24/2024) Resolved Problems Problem Noted Date Diagnosed Date Resolved Date [place] eye 07/16/2015 09/29/2020 Antepartum abnormal glucose tolerance [...] as of this encounter (statuses as of 07/24/2024) Immunizations Name Administration Dates Next Due HPV [...] encounter Miscellaneous Notes * Telephone Encounter - Farhat Choe [facility] - 07/24/2024 12:07 PM ESTSigned Prescriptions: Disp Refills Aspirin Low Dose 81 MG Oral Tablet Delayed*90 Tab*0 Sig: take 1 tablet by mouth IN THE MORNINGAuthorizing Provider: DANELLE HEARD User: FARHAT CHOE * Telephone Encounter - Farhat Choe [facility] - 07/24/2024 12:06 PM EST RX authorized. Zero refills given until upcoming appt. 07/31/2024 Farhat Rushing PharmD Clinical Pharmacist [facility] ([facility]) [phone] 07/24/2024 12:06 PM documented in this encounter Plan of Treatment Upcoming Encounters Date Type Department Care Team (Late st Contact Info) Description 07/31/2024 3:40 PM EST Office Visit Family Practice [facility] [address] [address] Danelle Heard DO [address] [place] [address] 08/07/2024 8:40 AM EST Telemedicine Neurology [place] [address] [place] [phone] Celina Sexton MD [address] [facility] [place] [id number] 09/24/2024 8:00 AM EST Office Visit Cardiology, [facility] [address] [place] [address] Debbie Huertas CRNP [address] [place] [address] Health Maintenance Due Date Last Done Comments Hepatitis B Vaccine (1 of 3 - 19+ 3-dose series) 2005 HPV/Co-Test 2016 Depression Screening 11/08/2022 11/08/2021 COVID-19 Vaccine ( season) 2024 Influenza Vaccine [...] giddiness documented in this encounter Care Teams Citrus Fruit Packer Relationship Specialty Start Date End Date Danelle Heard DO [address] [place] [address] PCP - General Family Medicine 09/20/20 documented as of this encounter
--- OUTSIDE RECORDS SUMMARY | 2024-08-21 02:48 | External Medical Summary ---
Author Name Unknown Address Unknown Organization K01:[facility]ORY [facility] [place] [address] [place] [address] Laboratory Report Ordering Provider Test Date Status SID MCCLENDON 08/04/2024 11:45:05 Final Deficient: <20 ng/mL
Ins ufficient: 20-29 ng/mL
Recommended/Optimum:30-50 ng/mL

Vitamin D intoxication is rare. If suspicious of Vitamin D toxicity, evaluation of serum Calcium and PTH is recommended. Observation Date Value Abnormality Reference (Units ) Status 25-OH Vitamin D total 08/04/2024 11:45:05 31 >19 (ng/mL) Final Performing Location [facility] [facility] [place] [address] [place] [address]
--- OUTSIDE RECORDS SUMMARY | 2024-08-21 02:48 | External Medical Summary ---
Author Name Unknown Address Unknown Organization K01:LABORATORY [place] [address] [facility] [address] Laboratory Report Ordering Provider Test Date Status SID MCCLENDON 07/31/2024 15:31:16 Final Observation Date Value Abnormality Reference (Units ) Status Thyroperoxidase Ab [Units/volume] in Serum or Plasma by Immunoassay 07/31/2024 15:31:16 9.1 <34.0 (IU/mL) Final Thyroglobulin Ab 07/31/2024 15:31:16 18.2 <115.0 (IU/mL) Final Performing Location [facility] [place] - [facility] [address] [facility] [address]
[2024-08-23 17:37] LABS: Alpha-Gal IgE <0.10 kU/L (<0.10)
== END 2024-08-20 13:16 | disposition home or self-care (01) ==
LOC: ED 11:20 → EDINP 11:20 → SUATTDRO 16:59 → EDINP 19:12